=== PATIENT | female | born 1950 | race African-American/Black ===

== ENCOUNTER 2018-05-03 07:17 | Emergency (ER) | payer OTHER ==
[2018-05-03 08:11] LABS: Absolute Lymphocytes (CBC) 2.9 K/uL (0.7-4.9); Absolute Monocytes 0.8 K/uL (0.1-1.3); Absolute Neutrophil 2.6 K/uL (1.8-8.0); Basophils % 0.5 % (0-1.3); Eosinophils % 3.8 % (0-4.4); Hematocrit 35.7 % (36.0-45.0); Lymphocytes % 44.4 % (15.3-44.8); MCH 31.3 pg (27.0-35.0); MPV 9.3 fL (7.6-11.3); Monocytes % 12.2 % (3.3-12.3)
[2018-05-03 08:24] LABS: Potassium 3.7 mmol/L (3.5-5.1)
[2018-05-03 08:26] LABS: Protime INR 1.63
--- NOTE | 2018-05-03 08:49 | RAD REPORT ---
EXAM DESCRIPTION: US - UPPER EXTREMITY VENOUS UNILATE - 05/03/2018 8:43 am CLINICAL HISTORY: left arm pain and swelling, eval for dvt COMPARISON: No comparisons FINDINGS: Left upper extremity venous system was interrogated with Doppler technique. Normal flow, c ompressibility and augmentation was noted. There is no DVT present. IMPRESSION: No evidence of left upper extremity deep venous thrombosis.
--- NOTE | 2018-05-03 09:23 | RAD REPORT ---
EXAM DESCRIPTION: CT - Soft Tissue Neck Wo Contr CLINICAL HISTORY: left supraclavicular swelling COMPARISON: Chest Pa And Lat (2 Views) dated 11/16/2017; UPPER EXTREMITY VENOUS UNILATE dated 05/03/[address] soft tissue neck without contrast with reformatted images CT neck without contrast with reformatted images All CT scans are performed using dose optimization technique as appropriate and may include automated exposure control or mA/KV adjustment according to patient size. FINDINGS: Significant thyroid goiter is seen predominately involving the left lobe of the thyroid an d extending into the upper mediastinum. No intrinsic or extrinsic aggressive neck mass seen. No bulky lymphadenopathy is seen in the neck. The salivary glands are symmetric in size. The lungs are clear. No pleural or pericardial fluid. No bulky adenopathy is seen. Cholelithiasis. Calcification left adrenal gland is seen. IMPRESSION: Significant thyroid goiter predominate involving the left lobe of the thyroid gland exte nding into the upper mediastinum. No acute or aggressive neck or intrathoracic finding.
--- NOTE | 2018-05-03 10:11 | RAD REPORT ---
EXAM DESCRIPTION: CT - Thorax Wo Con CLINICAL HISTORY: Left supraclavicular swelling COMPARISON: Chest Pa And Lat (2 Views) dated 11/16/2017; UPPER EXTREMITY VENOUS UNILATE dated 05/03/20 18 TECHNIQUE: CT soft tissue neck without contrast with reformatted images CT neck without contrast with reformatted images All CT scans are performed using dose optimization technique as appropriate and may include automated exposure control or mA/KV adjustment according to patient size. FINDINGS: Significant thyroid goiter is seen predominately involving the left lobe of the thyroid an d extending into the upper mediastinum. No intrinsic or extrinsic aggressive neck mass seen. No bulky lymphadenopathy is seen in the neck. The salivary glands are symmetric in size. The lungs are clear. No pleural or pericardial fluid. No bulky adenopathy is seen. Cholelithiasis. Calcification left adrenal gland is seen. IMPRESSION: Significant thyroid goiter predominate involving the left lobe of the thyroid gland exte nding into the upper mediastinum. No acute or aggressive neck or intrathoracic finding.
[2018-05-03 11:19] LABS: Thyroid Stimulating Hormone 1.52 uIU/mL (0.360-3.740)
--- NOTE | 2018-05-03 12:34 | EKG ---
Test Date: 2018-05-03 Test Time: 09:06:24 Platen Grinder: NEEL MEASUREMENT RESULTS: Intervals: Rate: 61 [place]: 224 QRSD: 102 QT: 442 QTc: 444 [place]: P: 39 [place]: 224 QRS: 13 T: 48 INTERPRETIVE STATEMENTS: Sinus rhythm with 1st degree AV block Otherwise normal ECG Compared to ECG 11/21/2011 17:38:48 T-wave abnormality no longer present Electronically Signed On 05-03-18 12:32:50 CDT by Isacc Hayes
--- NOTE | 2018-05-03 13:16 | RAD REPORT ---
EXAM DESCRIPTION: MRI - C Spine Wo Cont - 05/03/2018 12:58 pm CLINICAL HISTORY: Left arm radiculopathy for 3 weeks COMPARISON: None TECHNIQUE: Magnetic resonance imaging of the cervical spine was obtained with coronal and sagittal r econstruction FINDINGS: C2-3 and C3-4 are unremarkable Disc bulge is present at C 4-5. Left facet hypertrophy is seen. Mild to moderate narrowing of the lef t neural foramina is noted. Minimal narrowing of the thecal sac is seen. Osteophytes and disc bulge is present at C5-6. Moderate narrowing of the right neural foramina is not ed. Small to moderate left posterolateral disc osteophyte complex is present at C6-7 narrowing the left l ateral recess and left neural foramina. C7-T1 is unremarkable The spinal cord is normal caliber and signal. No abnormal signal within the bones is noted. IMPRESSION: Small to moderate left posterolateral disc osteophyte complex C6-7
--- NOTE | 2018-05-03 13:37 | EDPHYS ---
Physician Documentation [facility] Name: Michelle Hadley Age: 68 yrs Sex: Female : 1950 Arrival Date: 05/03/2018 Time: 07:21 Bed 15 Private MD: Jose Maria Capps C ED Physician Jerardo Manzo HPI: 05/03 07:48 This 68 yrs old Black Female presents to ER via Ambulatory with complaints of Back rn Pain, Arm Pain, Neck Pain, <24hrs Old, Side Pain. 07:49 The patient or guardian complains of pain, swelling. The symptoms are located on the rn left scapular area. Onset: The symptoms/episode began/occurred 3 week(s) ago. Associated signs and symptoms: Pertinent positives: tingling, weakness, Pertinent negatives: chills, bladder incontinence, bowel incontinence, vomiting. The pain radiates to the left arm. Modifying factors: The symptoms are alleviated by nothing. the symptoms are aggravated by movement. Severity of symptoms: At their worst the symptoms were mild, in the emergency department the symptoms are unchanged. The patient has not experienced similar symptoms in the past. The patient has been recently seen by a physician:. REports 3 weeks of left neck and arm pain, + mild swelling to left neck region, no fever/chills, no weight loss, had neg colonoscopy 5 years ago, no recent surgery or procedure, no hx of DVT. . Historical: - Allergies: 07:29 PENICILLINS; ch - Home Meds: 07:29 magnesium oxide 400 mg Oral tab [Active]; fluticasone 50 mcg/actuation nasal spsn 1 ch spray 2 times per day [Active]; amlodipine 5 mg tab 1 tab once daily [Active]; sotalol 80 mg Oral tab 1 tab 2 times per day [Active]; carvedilol 25 mg oral tab 1 tab 2 times per day [Active]; gabapentin 100 mg oral cap 3 times per day [Active]; losartan-hydrochlorothiazide 50-12.5 mg oral tab 1 tab twice a day [Active]; Xarelto 15 mg oral tab [Active]; clonidine HCl 0.1 mg Oral tab 1 tab as needed [Active]; terazosin 2 mg cap, on capsul bid [Active]; - PMHx: 07:29 Hypertension; TIA; ch - PSHx: 07:29 partial hysterectomy; ch - Immunization history:: Adult Immunizations up to date, Flu vaccine is up to date. - Social history:: Smoking status: Patient/guardian denies using tobacco, Patient/guardian denies using alcohol, street drugs. - Ebola Screening: : Patient negative for fever greater than or equal to 101.5 degrees Fahrenheit, and additional compatible Ebola Virus Disease symptoms Patient denies exposure to infectious person Patient denies travel to an Ebola-affected area in the 21 days before illness onset No symptoms or risks identified at this time. - Family history:: not pertinent. - Hospitalizations: : No recent hospitalization is reported. ROS: 07:49 Constitutional: Negative for fever, chills, and weight loss, Eyes: Negative for injury, rn pain, redness, and discharge, Neck: + pain and swelling, no injury Cardiovascular: Negative for chest pain, palpitations, and edema, Respiratory: Negative for shortness of breath, cough, wheezing, and pleuritic chest pain, Abdomen/GI: Negative for abdominal pain, nausea, vomiting, diarrhea, and constipation, MS/Extremity: Negative for injury and deformity, Skin: Negative for injury, rash, and discoloration, Neuro: + weakness and tingling of left arm Exam: 07:49 Constitutional: This is a well developed, well nourished patient who is awake, alert, rn and in no acute distress. Head/Face: Normocephalic, atraumatic. Eyes: Pupils equal round and reactive to light, extra-ocular motions intact. Lids and lashes normal. Conjunctiva and sclera are non-icteric and not injected. Cornea within normal limits. Periorbital areas with no swelling, redness, or edema. ENT: Nares patent. No nasal discharge, no septal abnormalities noted. Mucous membranes moist. Neck: Trachea midline, + left supraclavicular swelling/mass noted approx 4cm in size, + tender, no skin changes, no crepitus. Chest/axilla: Normal chest wall appearance and motion. Cardiovascular: Regular rate and rhythm. No pulse deficits. Respiratory: Lungs have equal breath sounds bilaterally, clear to auscultation and percussion. No rales, rhonchi or wheezes noted. No increased work of breathing, no retractions or nasal flaring. Abdomen/GI: soft, non-tender MS/ Extremity: Pulses equal, no cyanosis. Neurovascular intact. Full, normal range of motion. Equal circumference. Neuro: Awake and alert, GCS 15, oriented to person, place, time, and situation. Cranial nerves II-XII grossly intact. Motor strength 5/5 in all extremities. Sensory grossly intact. Cerebellar exam normal. Normal gait. Vital Signs: 07:29 BP 171 / 84; Pulse 65; Resp 18; Temp 99; Pulse Ox 98% on R/A; Weight 130.63 kg; Height ch 5 ft. 4 in. (162.56 cm); Pain 10/10; 08:30 rb1 08:50 rb1 09:30 BP 149 / 66; Pulse 65; Resp 19; Pulse Ox 100% on R/A; rb1 11:01 BP 152 / 71; Pulse 64; Resp 18; Pulse Ox 98% on R/A; ph 12:15 BP 147 / 68; Pulse 65; Resp 18; Pulse Ox 98% on R/A; ph 07:29 Body Mass Index 49.43 (130.63 kg, 162.56 cm) ch 08:30 Pt. in US. rb1 08:[address] rb1 MDM: 07:31 Patient medically screened. rn 11:46 ED course: Neg w/u here except for thyroid goiter, normal thyroid studies, called Dr. hernandez Capps to notify of results, he requests MRI cspine for further evaluation while here in ER. . 13:34 Differential diagnosis: Cervical Disc Herniation Cervical Discogenic Pain Cervical rn Facet Syndrome Cervical Raiculopathy Diabetic Neuropathy Osteoarthritis neck mass. Data reviewed: vital signs, nurses notes, lab test result(s), EKG, radiologic studies, CT scan, doppler, MRI, and as a result, I will discharge patient. Counseling: I had a detailed discussion with the patient and/or guardian regarding: the historical points, exam findings, and any diagnostic results supporting the discharge/admit diagnosis, lab results, radiology results, the need for outpatient follow up, to return to the emergency department if symptoms worsen or persist or if there are any questions or concerns that arise at home. Special discussion: I discussed with the patient/guardian in detail that at this point there is no indication for admission to the hospital. It is understood, however, that if the symptoms persist or worsen the patient needs to return immediately for re-evaluation. Based on the history and exam findings, there is no indication for further emergent testing or inpatient evaluation. I discussed with the patient/guardian the need to see the back specialist for further evaluation of the symptoms. I discussed with the patient/guardian the need to see the primary care provider for further evaluation of the symptoms. Endocrine. ED course: MRI cspine shows some facet problems and minimal disc bulging, no cord abnormality, will dc home. Spoke with zahra Cordova with dc with steroids and requests f/u with him this next week. . 05/03 07:47 Order name: CBC with Diff; Complete Time: 08:33 rn 05/03 07:47 Order name: Basic Metabolic Panel; Complete Time: 11:38 rn 05/03 07:47 Order name: Protime (+inr); Complete Time: 08:33 rn 05/03 07:47 Order name: Ptt, Activated; Complete Time: 08:33 rn 05/03 07:48 Order name: Blood Culture Adult (2) rn 05/03 09:52 Order name: Add On-Lab hb 05/03 07:51 Order name: UPPER EXTREMITY VENOUS UNILATE; Complete Time: 09:49 EDMS 05/03 08:35 Order name: Soft Tissue Neck Wo Contr; Complete Time: 09:49 EDMS 05/03 08:35 Order name: Thorax Wo Con; Complete Time: 11:17 EDMS 05/03 10:00 Order name: T4 Free; Complete Time: 11:38 EDMS 05/03 10:00 Order name: Thyroid Stimulating Hormone; Complete Time: 11:38 EDMS 05/03 07:47 Order name: IV Start; Complete Time: 08:05 rn 05/03 07:48 Order name: EKG; Complete Time: 07:48 rn 05/03 07:48 Order name: EKG - Nurse/Tech; Complete Time: 09:19 rn 05/03 11:45 Order name: C Spine Wo Cont; Complete Time: 13:27 EDMS Administered Medications: 09:50 CANCELLED (Duplicate Order): Lopressor 5 mg IVP once; Hold for SBP <100 or HR <60. rn 09:50 CANCELLED (Duplicate Order): Lopressor (metoprolol TARTRATE) 50 mg PO once rn Disposition: 05/03/18 13:36 Discharged to Home. Impression: Radiculopathy, cervical region, Nontoxic goiter, unspecified. - Condition is Stable. - Discharge Instructions: Cervical Radiculopathy, Goiter. - Prescriptions for Prednisone 20 mg Oral Tablet - take 1 tablet by ORAL route once daily for 7 days; 7 tablet. - Medication Reconciliation Form, Thank You Letter, Antibiotic Education, Prescription Opioid Use form. - Follow up: Jose Maria Capps MD; When: 5 - 6 days; Reason: Recheck today's complaints, Re-evaluation by your physician. - Problem is an ongoing problem. - Symptoms have improved. Signatures: Dispatcher [employer] EDMI Deysi Jiménez RN RN Jerardo Manzo MD MD rn Rincon, HERNANDEZ Perez RN ph Corrections: (The following items were deleted from the chart) 07:51 07:48 Extremity Venous Uni Ltd+US.RAD.BRZ ordered. EDMS EDMS 08:35 07:48 Soft Tissue Neck W/Contr+CT.RAD.BRZ ordered. EDMS EDMS 08:35 07:48 Thorax W/ Con+CT.RAD.BRZ ordered. EDMI EDMS 09:50 09:50 Lopressor 5 mg IVP once; Hold for SBP <100 or HR <60. ordered. rn rn 09:50 09:50 Lopressor (metoprolol TARTRATE) 50 mg PO once ordered. rn rn 13:45 13:36 05/03/2018 13:36 Discharged to Home. Impression: Radiculopathy, cervical region; ph Nontoxic goiter, unspecified. Condition is Stable. Forms are Medication Reconciliation Form, Thank You Letter, Antibiotic Education, Prescription Opioid Use. Follow up: Jose Maria Capps; When: 5 - 6 days; Reason: Recheck today's complaints, Re-evaluation by your physician. Problem is an ongoing problem. Symptoms have improved. rn
--- NOTE | 2018-05-03 13:37 | ER ---
Nurse's Notes [facility] Name: Michelle Hadley Age: 68 yrs Sex: Female : 1950 Arrival Date: 05/03/2018 Time: 07:21 Bed 15 Private MD: Jose Maria Capps C Diagnosis: Radiculopathy, cervical region;Nontoxic goiter, unspecified Presentation: 05/03 07:25 Presenting complaint: Patient states: pain to L shoulder, radiating to neck and back ch for the past three week. I saw a DR yesterday and was given tylenol with codiene. Transition of care: patient was not received from another setting of care. Onset of symptoms was March 2018. Risk Assessment: Do you want to hurt yourself or someone else? Patient reports no desire to harm self or others. Initial Sepsis Screen: Does the patient meet any 2 criteria? No. Patient's initial sepsis screen is negative. Does the patient have a suspected source of infection? No. Patient's initial sepsis screen is negative. Care prior to arrival: tylenol #3. 07:25 Method Of Arrival: Ambulatory 07:25 Acuity: DOROTHY 4 ch Triage Assessment: 07:29 General: Appears in no apparent distress. comfortable, Behavior is calm, cooperative, ch appropriate for age. Pain: Complains of pain in left trapezius, left scapular area, left flank and left arm Pain currently is 10 out of 10 on a pain scale. Musculoskeletal: Circulation, motion, and sensation intact. Historical: - Allergies: 07:29 PENICILLINS; ch - Home Meds: 07:29 magnesium oxide 400 mg Oral tab [Active]; fluticasone 50 mcg/actuation nasal spsn 1 ch spray 2 times per day [Active]; amlodipine 5 mg tab 1 tab once daily [Active]; sotalol 80 mg Oral tab 1 tab 2 times per day [Active]; carvedilol 25 mg oral tab 1 tab 2 times per day [Active]; gabapentin 100 mg oral cap 3 times per day [Active]; losartan-hydrochlorothiazide 50-12.5 mg oral tab 1 tab twice a day [Active]; Xarelto 15 mg oral tab [Active]; clonidine HCl 0.1 mg Oral tab 1 tab as needed [Active]; terazosin 2 mg cap, on capsul bid [Active]; - PMHx: 07:29 Hypertension; TIA; ch - PSHx: 07:29 partial hysterectomy; ch - Immunization history:: Adult Immunizations up to date, Flu vaccine is up to date. - Social history:: Smoking status: Patient/guardian denies using tobacco, Patient/guardian denies using alcohol, street drugs. - Ebola Screening: : Patient negative for fever greater than or equal to 101.5 degrees Fahrenheit, and additional compatible Ebola Virus Disease symptoms Patient denies exposure to infectious person Patient denies travel to an Ebola-affected area in the 21 days before illness onset No symptoms or risks identified at this time. - Family history:: not pertinent. - Hospitalizations: : No recent hospitalization is reported. Screenin:32 Abuse screen: Denies threats or abuse. Nutritional screening: No deficits noted. rb1 Tuberculosis screening: No symptoms or risk factors identified. Fall Risk None identified. Assessment: 07:32 General: Appears in no apparent distress. comfortable, obese, Behavior is calm, rb1 cooperative, Denies fever. Pain: Complains of pain in left side of neck and shoulder Pain radiates to left arm Pain currently is 10 out of 10 on a pain scale. Pain began x 3 weeks. Neuro: Level of Consciousness is awake, alert, obeys commands, Oriented to person, place, time, situation, Reports weakness in left arm. Cardiovascular: Capillary refill < 3 seconds is brisk in bilateral fingers. Respiratory: Airway is patent Respiratory effort is even, unlabored, Respiratory pattern is regular, symmetrical. GI: No signs and/or symptoms were reported involving the gastrointestinal system. : No signs and/or symptoms were reported regarding the genitourinary system. Derm: Skin is dry, Skin is normal, Skin temperature is warm. Musculoskeletal: Swelling present in left side of neck and bilateral ankles. 07:50 Reassessment: IV insertion was delayed due to the Pt. being anxious about receiving the rb1 IV. Pt. and family was educated on the need for the lab work and testing that needed to be done and why. 08:46 Reassessment: Pt. went to CT. rb1 09:30 Reassessment: Patient appears in no apparent distress at this time. Patient and/or rb1 family updated on plan of care and expected duration. Pain level reassessed. Patient is alert, oriented x 3, equal unlabored respirations, skin warm/dry/pink. Pt. is feeling less anxious now. 09:51 Reassessment: Patient appears in no apparent distress at this time. Patient and/or ph family updated on plan of care and expected duration. Pain level reassessed. Patient is alert, oriented x 3, equal unlabored respirations, skin warm/dry/pink. Pt ambulated to restroom w/ steady gait. 11:00 Reassessment: Patient appears in no apparent distress at this time. Patient and/or ph family updated on plan of care and expected duration. Pain level reassessed. Patient is alert, oriented x 3, equal unlabored respirations, skin warm/dry/pink. Pt resting quietly, awaiting lab results, SO at bedside, VSS. 12:25 Reassessment: Patient appears in no apparent distress at this time. Patient and/or ph family updated on plan of care and expected duration. Pain level reassessed. Patient is alert, oriented x 3, equal unlabored respirations, skin warm/dry/pink. IV d/c per pt request, pt taken by wheelchair for MRI, SO remains at bedside. 13:43 Reassessment: Patient appears in no apparent distress at this time. Patient and/or ph family updated on plan of care and expected duration. Pain level reassessed. Patient is alert, oriented x 3, equal unlabored respirations, skin warm/dry/pink. Pt instructed to follow up w/ Dr Capps and d/c home w/ steroid prescription. Vital Signs: 07:29 BP 171 / 84; Pulse 65; Resp 18; Temp 99; Pulse Ox 98% on R/A; Weight 130.63 kg; Height ch 5 ft. 4 in. (162.56 cm); Pain 10/10; 08:30 rb1 08:50 rb1 09:30 BP 149 / 66; Pulse 65; Resp 19; Pulse Ox 100% on R/A; rb1 11:01 BP 152 / 71; Pulse 64; Resp 18; Pulse Ox 98% on R/A; ph 12:15 BP 147 / 68; Pulse 65; Resp 18; Pulse Ox 98% on R/A; ph 07:29 Body Mass Index 49.43 (130.63 kg, 162.56 cm) ch 08:30 Pt. in US. rb1 08:[address] rb1 ED Course: 07:21 Patient arrived in ED. sb2 07:22 Jose Maria Capps MD is Private Physician. sb2 07:27 Triage completed. ch 07:29 Arm band placed on left wrist. Patient placed in an exam room, on a stretcher. ch 07:31 Jerardo Manzo MD is Attending Physician. rn 07:32 Patient has correct armband on for positive identification. Placed in gown. Bed in low rb1 position. Call light in reach. Side rails up X 1. Pulse ox on. NIBP on. Warm blanket given. 07:32 Inserted saline lock: 22 gauge in right antecubital area, using aseptic technique. rb1 Blood collected. 07:34 Makeda Campos, RN is Primary Nurse. rb1 07:57 Radiology exam delayed due to IV insertion attempt and/or patient not having hr appropriate IV at this time. 08:40 UPPER EXTREMITY VENOUS UNILATE In Process Unspecified. EDMS 08:[address] via stretcher. sj 08:57 CT completed. Patient tolerated procedure well. Patient moved back from CT. sj 08:59 Soft Tissue Neck Wo Contr In Process Unspecified. EDMS 08:59 Thorax Wo Con In Process Unspecified. EDMS 09:00 Report given to HERNANDEZ Perez. rb1 09:33 EKG done, by aviation technician aircraft. reviewed by Jerardo Manzo MD. dt2 10:55 No provider procedures requiring assistance completed. ph 12:17 Ana Rincon RN is Primary Nurse. ph 12:30 Patient moved to MRI via wheelchair. em2 12:30 IV discontinued, intact, bleeding controlled, No redness/swelling at site. Pressure ph dressing applied. 12:58 C Spine Wo Cont In Process Unspecified. EDMS 13:00 MRI completed. Patient tolerated well. Patient moved back from MRI. em2 13:36 Jose Maria Capps MD is Referral Physician. rn Administered Medications: 09:50 CANCELLED (Duplicate Order): Lopressor 5 mg IVP once; Hold for SBP <100 or HR <60. rn 09:50 CANCELLED (Duplicate Order): Lopressor (metoprolol TARTRATE) 50 mg PO once rn Outcome: 13:36 Discharge ordered by . rn 13:44 Discharged to home ambulatory, with significant other. ph 13:44 Condition: good 13:44 Discharge instructions given to patient, significant other, Instructed on discharge instructions, follow up and referral plans. medication usage, Demonstrated understanding of instructions, follow-up care, medications, Prescriptions given X 1. 13:45 Patient left the ED. ph Signatures: Dispatcher [employer] EDMS Deysi Jiménez, RN RN rafael Navarro, Rody Edwards, Jerardo Vallecillo MD MD rn Montes, Pawel em2 Ana Rincon RN RN ph Andres, Makeda RN RN [place] Missy, Magui sb2 Evie Scott dt2 Corrections: (The following items were deleted from the chart) 07:47 07:29 BP 171 / ???; Pulse 84bpm; Resp 65bpm; Pulse Ox 99% RA; Temp 18F; 130.63 kg; ch Height 5 ft. 4 in.; BMI: 49.4; Pain 10/10; ch
[2018-05-03 15:32] VITALS: BP 147/68; TEMP 99; O2SAT 98
== END 2018-05-03 13:45 | disposition home or self-care (01) ==
LOC: ER 07:17
DX: M54.12 Radiculopathy, cervical region (principal); E04.9 Nontoxic goiter, unspecified; I10 Essential (primary) hypertension; Z79.02 Long term (current) use of antithrombotics/antiplatelets; Z88.0 Allergy status to penicillin; Z86.73 Personal history of transient ischemic attack (TIA), and cerebral infarction without residual deficits
CPT/HCPCS: 36415; 70490; 71250; 72141; 80048; 84439; 84443; 85025; 85610; 85730; 87040; 93005; 93971; 99284

== ENCOUNTER → 2019-05-04 | Day surgery (SDC) | payer OTHER ==
[2011-11-24 15:46] VITALS: BP 141/72
--- NOTE | 2019-05-04 10:58 | RAD REPORT ---
EXAM DESCRIPTION: US - Guided FNA Non Breast - 05/04/2019 10:42 am CLINICAL HISTORY: E04.1 COMPARISON: Thyroid ultrasound April 17 TECHNIQUE: Patient presents for ultrasound-guided fine-needle aspiration of a solid right nodule jarrett t had shown growth since a 2018 study. Referring physician's office was contacted prior to the proced ure to confirm FNA of the right-side nodule. The procedure, risks and alternatives were discussed with the patient in detail. After answering all questions, both oral and written consent were obtained. Patient self medicated with Valium. After beulah ting adequate time for the medications to take effect, preliminary sonographic evaluation was perform ed and again identified the oval 2.5 centimeter solid nodule in the right side of the thyroid gland. The anterior right neck was prepped and draped in the usual sterile fashion. From a right anterolater al approach the skin and deeper tissues were anesthetized with 1% lidocaine. Under direct sonographic visualization a 25 gauge needle was advanced into the nodule. Multiple to and fro excursions of the needle tip performed. The FNA procedure was repeated with 3 additional 25 gauge needle aspirations. A ll obtained material was given to pathology for cytology assessment. At the conclusion of the procedure, follow-up imaging showed no hematoma or evidence for bleeding enedina und the thyroid gland or along the pathway of the needle. Postprocedure care and precaution instructi ons were given to the patient and her . A sterile bandage was placed over the puncture site at the conclusion of the procedure. IMPRESSION: Ultrasound-guided fine-needle aspiration was performed of the right thyroid solid nodule as detailed.
== END ==
LOC: FNA 08:42
PROVIDERS: ATTEND Otolaryngology
PROC: 0G9H3ZX Drainage of Right Thyroid Gland Lobe, Percutaneous Approach, Diagnostic (ICD-10-PCS; principal; 2019-05-04)
PROC: BG44ZZZ Ultrasonography of Thyroid Gland (ICD-10-PCS; 2019-05-04)
DX: E04.1 Nontoxic single thyroid nodule (principal)
CPT/HCPCS: 88162

== ENCOUNTER 2020-04-14 14:45 | Inpatient (IN) | payer OTHER ==
--- OUTSIDE RECORDS SUMMARY | 2020-04-14 14:47 | XMS REPORT | Continuity of Care Document ---
:1950 Author Organization [facility] t Address [address] [place] [address] Care Team Providers Name Role Phone Unavailable Unavailable Unavailable Payers Payer Name Policy Type Policy Number Effective Date Expiration Date S ource Problems This patient has no known problems. Allergies, Adverse Reactions, Alerts Allergy Allergy Status Severity Reaction(s) Onset Inactive Treating Comm ents Source Name Type Date Date Clinician [place] [facility] [facility] No Known DA Active [facility] 02-09 [place] [facility] 00:[facility] [place] [facility] [place] [facility] Medications This patient has no known medications. Procedures This patient has no known procedures. Results This patient has no known results.
[2020-04-14] MEDS ORDERED: NITROGLYCERIN 1 GM PKT TD ONE (15:34)
[2020-04-14] MEDS ORDERED: MORPHINE 4 MG/ML SYR ONE (15:34)
[2020-04-14] MEDS ORDERED: LORazepam 2 MG/ML VIAL ONE (15:34)
[2020-04-14] MEDS ORDERED: NITROGLYCERIN 0.4 MG/TAB SL ONE (15:35)
[2020-04-14] MEDS ORDERED: FUROSEMIDE 40 MG/4 ML VIAL ONE ×2 (15:35→17:48)
[2020-04-14 15:48] LABS: Absolute Lymphocytes (CBC) 2.4 K/uL (0.7-4.9); Hematocrit 36.4 % (36.0-45.0); Lymphocytes % 36.8 % (15.3-44.8); MPV 9.1 fL (7.6-11.3); Protime INR 1.91; RBC Red Blood Cell Count 3.84 M/uL (3.86-4.86)
[2020-04-14 16:16] LABS: ALT/SGPT 28 U/L (12-78); AST/SGOT 20 U/L (15-37); Albumin 3.5 g/dL (3.4-5.0); Alkaline Phosphatase 92 U/L (45-117); BUN Blood Urea Nitrogen 19 mg/dL (7-18); Bicarbonate 29 mmol/L (21-32); Bilirubin Direct 0.3 mg/dL (0-0.2); Bilirubin Total 0.9 mg/dL (0.2-1.0); Glucose Level 96 mg/dL (74-106); Magnesium 1.9 mg/dL (1.8-2.4); NT PRO-BNP 2157 pg/mL (<125); Potassium 3.9 mmol/L (3.5-5.1); Protein, Total 8.1 g/dL (6.4-8.2); Sodium Level 142 mmol/L (136-145); Troponin (Emerg Dept Use Only) < 0.02 ng/mL (0.0-0.045)
[2020-04-14] MEDS ORDERED: ASPIRIN 81 MG CHEWABLE TABLET ONE (16:23)
--- NOTE | 2020-04-14 16:29 | RAD REPORT ---
EXAM DESCRIPTION: RAD - Chest Single View - 04/14/2020 3:47 pm CLINICAL HISTORY: CHEST PAIN COMPARISON: Two view chest November 2017 TECHNIQUE: AP portable chest image was obtained 04/14/2020 3:47 pm . FINDINGS: Lung volumes are low. Large body habitus and under penetrated technique further limit the study. No peripheral mass or consolidation. Heart, vasculature and lung markings are is accentuated by the e xam limitations. Mild failure or volume overload could be masked. No significant volume overload. Tra jarrett is midline. No measurable pleural effusion and no pneumothorax. No acute bony abnormality seen. No acute aortic findings suspected. IMPRESSION: Limited portable study without acute cardiopulmonary finding. Mild failure or volume overload could be masked by the exam limitations.
[2020-04-14 16:41] LABS: Urine Blood TRACE (NEG); Urine Glucose NEGATIVE (NEG); Urine Specific Gravity 1.025 (1.005-1.030)
[2020-04-14 16:42] LABS: Urine Protein TRACE (NEG)
--- NOTE | 2020-04-14 17:39 | ER ---
Nurse's Notes [facility] Name: Michelle Hadley Age: 70 yrs Sex: Female : 1950 Arrival Date: 04/14/2020 Time: 14:48 Bed 2 Private MD: Jose Maria Capps C Diagnosis: Unspecified systolic (congestive) heart failure Presentation: 04/14 15:05 Chief complaint: Patient states: has had difficulty breathing, chest tightness, iw swelling in her feet for 2 months, also has a slight headache, denies hx of CHF. Coronavirus screen: At this time, the client does not indicate any symptoms associated with coronavirus-19. Ebola Screen: Patient negative for fever greater than or equal to 101.5 degrees Fahrenheit, and additional compatible Ebola Virus Disease symptoms Patient denies exposure to infectious person. Patient denies travel to an Ebola-affected area in the 21 days before illness onset. No symptoms or risks identified at this time. Initial Sepsis Screen: Does the patient meet any 2 criteria? No. Patient's initial sepsis screen is negative. Does the patient have a suspected source of infection? No. Patient's initial sepsis screen is negative. Onset of symptoms was January 2020. 15:05 Method Of Arrival: Wheelchair iw 15:05 Acuity: DOROTHY 3 iw 15:07 Risk Assessment: Do you want to hurt yourself or someone else? Patient reports no sv desire to harm self or others. 15:13 Acuity: DOROTHY 2 sv Triage Assessment: 15:07 General: Appears in no apparent distress. uncomfortable, obese, well groomed, well sv developed, Behavior is calm, cooperative, appropriate for age. Pain: Complains of pain in chest Pain does not radiate. Quality of pain is described as tightness Pain began 2-3 months ago Is intermittent. Neuro: Level of Consciousness is awake, alert, obeys commands, Oriented to person, place, time, situation, Moves all extremities. Full function Gait is steady, Speech is normal, easily loses her breath. Respiratory: Reports shortness of breath at rest on exertion cough that is non-productive, Airway is patent Respiratory effort is even, unlabored, Respiratory pattern is regular, symmetrical, Onset: The symptoms/episode began/occurred 2-3 months ago, the patient has mild shortness of breath. Derm: Skin is pink, warm \T\ dry. Musculoskeletal: Range of motion: intact in all extremities. Historical: - Allergies: 15:11 PENICILLINS; iw - Home Meds: 15:14 losartan 100 mg oral tab 1 tab once daily [Active]; sotalol 80 mg Oral tab 1 tab 2 iw times per day [Active]; Xarelto 15 mg Oral tab daily [Active]; Dulcolax (bisacodyl) 5 mg Oral TbEC 1 tab once daily [Active]; hydralazine 10 mg Oral tab 1 tab 2 times per day [Active]; magnesium oxide 400 mg Oral tab daily [Active]; carvedilol 25 mg Oral tab 1 tab 2 times per day [Active]; losartan-hydrochlorothiazide 50-12.5 mg Oral tab 1 tab twice a day [Active]; clonidine HCl 0.2 mg oral tab 2 times per day [Active]; - PMHx: 15:11 Hypertension; TIA; Atrial Fib; CVA; iw - PSHx: 15:11 Hysterectomy; mass removed from stomach; iw - Immunization history:: Adult Immunizations up to date. - Social history:: Smoking status: Patient denies any tobacco usage or history of. Screenin:07 Abuse screen: Denies threats or abuse. Denies injuries from another. Nutritional sv screening: No deficits noted. Tuberculosis screening: No symptoms or risk factors identified. Fall Risk None identified. Assessment: 15:40 Reassessment: Pt placed on BIPAP by Alyce MCKEON sv 16:10 Reassessment: Patient appears in no apparent distress at this time. Patient and/or sv family updated on plan of care and expected duration. Pain level reassessed. Patient is alert, oriented x 3, equal unlabored respirations, skin warm/dry/pink. Patient states feeling better. Patient states symptoms have improved. 17:00 Reassessment: Patient appears in no apparent distress at this time. Patient and/or sv family updated on plan of care and expected duration. Pain level reassessed. Patient is alert, oriented x 3, equal unlabored respirations, skin warm/dry/pink. Pt reports that she can breathe better Patient states feeling better. Patient states symptoms have improved. 17:49 Reassessment: Patient appears in no apparent distress at this time. Patient and/or sv family updated on plan of care and expected duration. Pain level reassessed. Patient is alert, oriented x 3, equal unlabored respirations, skin warm/dry/pink. 17:55 Reassessment: Waiting for admission orders. sv 18:17 Reassessment: Attempted to call report, nurse unavailable. sv Vital Signs: 15:05 Pulse 94; Resp 20 S; Temp 97.9; Pulse Ox 100% on R/A; Weight 136.08 kg; Height 5 ft. 5 iw in. (165.10 cm); Pain 0/10; 15:13 BP 195 / 124; sv 15:49 BP 199 / 104; Pulse 86 MON; Resp 17; Pulse Ox 97% on BiPAP; sv 15:55 BP 199 / 104; Pulse 96; Resp 22; Pulse Ox 100% on BiPAP; ph 16:30 BP 190 / 102; Pulse 84; Resp 19; Pulse Ox 99% ; sv 17:30 BP 193 / 105; Pulse 74; Resp 16; Pulse Ox 99% on BiPAP; sv 18:45 BP 191 / 104; Pulse 77; Resp 18; Pulse Ox 99% on BiPAP; sv 15:05 Body Mass Index 49.92 (136.08 kg, 165.10 cm) iw 15:49 A fib sv 15:49 Concepción DISABILITY INSURANCE CLAIM EXAMINER aware of vitals, no further orders at this time sv ED Course: 14:48 Patient arrived in ED. mr 14:48 Jose Maria Capps MD is Private Physician. mr 14:58 Laurel Shah, RN is Primary Nurse. sv 14:59 Concepción Hernandez FNP-C is [facility]. snw 14:59 Rehan Bey MD is Attending Physician. snw 15:05 Arm band placed on. sv 15:06 Nurse Practitioner and/or Physician Manager Business Continuity to see patient. sv 15:06 Patient has correct armband on for positive identification. Placed in gown. Bed in low sv position. Call light in reach. Adult w/ patient. quality assurance monitor final on. Pulse ox on. NIBP on. Door closed. Head of bed elevated. 15:09 Triage completed. iw 15:15 Inserted saline lock: 20 gauge in right antecubital area, using aseptic technique. sv Blood collected. Flushed right antecubital with 5 ml normal saline. 15:42 X-ray(s) taken. sv 15:43 XRAY Chest (1 view) Sent. sv 15:43 Troponin (emerg Dept Use Only) Sent. sv 15:43 PT-INR Sent. sv 15:43 NT PRO-BNP Sent. sv 15:43 Magnesium Sent. sv 15:43 LFT's Sent. sv 15:43 CBC with Diff Sent. sv 15:43 Basic Metabolic Panel Sent. sv 15:43 TSH Sent. sv 15:43 BIPAP Sent. sv 16:20 Urine Dipstick--Ancillary (enter results) Sent. sv 17:01 Awaiting disposition, Awaiting re-evaluation by ER provider. sv 17:29 Awaiting disposition. sv 17:37 Jose Maria Capps MD is Hospitalizing Provider. snw 19:13 No provider procedures requiring assistance completed. Patient admitted, IV remains in sv place. intact. 19:16 Primary Nurse role handed off by Laurel Shah RN sv Administered Medications: 15:17 CANCELLED (Other Intervention Used): Aspirin Chewable Tablet 324 mg PO once; 81 mg snw tablets x 4 15:18 CANCELLED (Other Intervention Used; other int): Lovenox 1 mg/kg Sub-Q once snw 15:35 Drug: Ativan 1 mg Route: IVP; Site: right antecubital; ph 15:50 Follow up: Response: No adverse reaction sv 15:38 Drug: Lasix 40 mg Route: IVP; Site: right antecubital; ph 15:50 Follow up: Response: No adverse reaction sv 15:41 Drug: Nitroglycerin 0.4 mg Route: Sublingual; ph 15:50 Follow up: Response: No adverse reaction sv 16:05 Drug: Nitro-Bid Ointment 2 % 1 inches Route: Transdermal; Site: anterior chest wall; ph 16:20 Drug: Aspirin 81 mg Route: PO; sv 16:59 Follow up: Response: No adverse reaction sv 17:00 Not Given (Patient Refused): morphine 4 mg IVP once; RASS on ADMIN: Combtv4, Very sv Agttd3, Agttd2, Rstlss1, AlertClm0, Drwsy-1, Lt Sdtn-2, Mod Sdtn-3, Dp Sdtn-4, UnArsble-5 17:48 Drug: Lasix 40 mg Route: IVP; Site: right antecubital; sv 18:30 Follow up: Response: No adverse reaction sv Output: 16:08 Urine: 150ml (Voided); Total: 150ml. sv 17:00 Urine: 450ml (Voided); Total: 600ml. sv 18:34 Urine: 950ml (Voided); Total: 1550ml. sv Outcome: 17:39 Decision to Hospitalize by Provider. snw 19:13 Admitted to Tele accompanied by tech, via wheelchair, room 401, with chart, Report sv called to Sallie NG 19:13 Condition: stable 19:13 Instructed on the need for admit. 19:26 Patient left the ED. lp1 Signatures: Laurel Shah, RN RN sv Concepción Hernandez, GOLF RANGE ATTENDANT-C GOLF RANGE ATTENDANT-Csnw Ella Rivas mr Tara Gan RN RN iw Yolanda Armas RN RN lp1 Ana Rincon RN RN ph Corrections: (The following items were deleted from the chart) 17:37 16:49 BP 190 / 102; Pulse 84bpm; Resp 19bpm; Pulse Ox 99%; sv sv 19:12 15:49 BP 199 / 104; Pulse 86bpm; Monitor: A fibResp 17bpm; Pulse Ox 97% BiPAP; sv sv
--- NOTE | 2020-04-14 17:39 | EDPHYS ---
Physician Documentation [facility] Name: Michelle Hadley Age: 70 yrs Sex: Female : 1950 Arrival Date: 04/14/2020 Time: 14:48 Bed 2 Private MD: Jose Maria Capps C ED Physician Rehan Bey HPI: 04/14 16:22 This 70 yrs old Black Female presents to ER via Wheelchair with complaints of Breathing snw Difficulty. 16:22 The patient has shortness of breath with light activity. Onset: The symptoms/episode snw began/occurred 2 month(s) ago, and became persistent. Duration: The symptoms are continuous. The patient's shortness of breath is aggravated by exertion, light activity, supine position, walking. Associated signs and symptoms: The patient has no apparent associated signs or symptoms. Severity of symptoms: At their worst the symptoms were severe in the emergency department the symptoms are unchanged. The patient has not recently seen a physician, the patient's primary care provider is Dr. Capps - encouraged to come to ED one month ago but pt declined. pt became visibly short of breath just getting leg up onto stretcher. Historical: - Allergies: 15:11 PENICILLINS; iw - Home Meds: 15:14 losartan 100 mg oral tab 1 tab once daily [Active]; sotalol 80 mg Oral tab 1 tab 2 iw times per day [Active]; Xarelto 15 mg Oral tab daily [Active]; Dulcolax (bisacodyl) 5 mg Oral TbEC 1 tab once daily [Active]; hydralazine 10 mg Oral tab 1 tab 2 times per day [Active]; magnesium oxide 400 mg Oral tab daily [Active]; carvedilol 25 mg Oral tab 1 tab 2 times per day [Active]; losartan-hydrochlorothiazide 50-12.5 mg Oral tab 1 tab twice a day [Active]; clonidine HCl 0.2 mg oral tab 2 times per day [Active]; - PMHx: 15:11 Hypertension; TIA; Atrial Fib; CVA; iw - PSHx: 15:11 Hysterectomy; mass removed from stomach; iw - Immunization history:: Adult Immunizations up to date. - Social history:: Smoking status: Patient denies any tobacco usage or history of. ROS: 16:22 Constitutional: Negative for fever, chills, and weight loss, Eyes: Negative for injury, snw pain, redness, and discharge, ENT: Negative for injury, pain, and discharge, Neck: Negative for injury, pain, and swelling, Cardiovascular: Negative for chest pain, palpitations, and edema. 16:22 Abdomen/GI: Negative for abdominal pain, nausea, vomiting, diarrhea, and constipation, Back: Negative for injury and pain, : Negative for injury, bleeding, discharge, and swelling, MS/Extremity: Negative for injury and deformity, Skin: Negative for injury, rash, and discoloration, Neuro: Negative for headache, weakness, numbness, tingling, and seizure. 16:22 Respiratory: Positive for dyspnea on exertion, orthopnea, shortness of breath. Exam: 15:15 Head/Face: Normocephalic, atraumatic. Eyes: Pupils equal round and reactive to light, snw extra-ocular motions intact. Lids and lashes normal. Conjunctiva and sclera are non-icteric and not injected. Cornea within normal limits. Periorbital areas with no swelling, redness, or edema. ENT: Nares patent. No nasal discharge, no septal abnormalities noted. Tympanic membranes are normal and external auditory canals are clear. Oropharynx with no redness, swelling, or masses, exudates, or evidence of obstruction, uvula midline. Mucous membranes moist. Neck: Trachea midline, no thyromegaly or masses palpated, and no cervical lymphadenopathy. Supple, full range of motion without nuchal rigidity, or vertebral point tenderness. No Meningismus. Chest/axilla: Normal chest wall appearance and motion. Nontender with no deformity. No lesions are appreciated. 15:15 Constitutional: The patient appears alert, awake, anxious, obese. 15:15 Cardiovascular: Rate: normal, Rhythm: irregularly irregular, Heart sounds: S3, Edema: is not appreciated, JVD: is noted bilaterally, to 2 cm. 15:15 Abdomen/GI: Soft, non-tender, with normal bowel sounds. No distension or tympany. No snw guarding or rebound. No evidence of tenderness throughout. Back: No spinal tenderness. No costovertebral tenderness. Full range of motion. Skin: Warm, dry with normal turgor. Normal color with no rashes, no lesions, and no evidence of cellulitis. MS/ Extremity: Pulses equal, no cyanosis. Neurovascular intact. Full, normal range of motion. Neuro: Awake and alert, GCS 15, oriented to person, place, time, and situation. Cranial nerves II-XII grossly intact. Motor strength 5/5 in all extremities. Sensory grossly intact. Cerebellar exam normal. Normal gait. 15:15 Respiratory: moderate respiratory distress is noted, Respirations: labored breathing, accessory muscle usage, shallow respirations, tachypnea, Breath sounds: are clear throughout, no bronchial sounds. 15:15 Psych: Behavior/mood is pleasant, cooperative, anxious. Vital Signs: 15:05 Pulse 94; Resp 20 S; Temp 97.9; Pulse Ox 100% on R/A; Weight 136.08 kg; Height 5 ft. 5 iw in. (165.10 cm); Pain 0/10; 15:13 BP 195 / 124; sv 15:49 BP 199 / 104; Pulse 86 MON; Resp 17; Pulse Ox 97% on BiPAP; sv 15:55 BP 199 / 104; Pulse 96; Resp 22; Pulse Ox 100% on BiPAP; ph 16:30 BP 190 / 102; Pulse 84; Resp 19; Pulse Ox 99% ; sv 17:30 BP 193 / 105; Pulse 74; Resp 16; Pulse Ox 99% on BiPAP; sv 18:45 BP 191 / 104; Pulse 77; Resp 18; Pulse Ox 99% on BiPAP; sv 15:05 Body Mass Index 49.92 (136.08 kg, 165.10 cm) iw 15:49 A fib sv 15:49 Concepción OPERATING ROOM TECHNICIAN aware of vitals, no further orders at this time sv MDM: 14:59 Patient medically screened. snw 16:51 Data reviewed: vital signs, nurses notes, old medical records, lab test result(s), EKG, snw radiologic studies. Data interpreted: Pulse oximetry: on room air is 100 %. Interpretation: normal. Counseling: I had a detailed discussion with the patient and/or guardian regarding: the historical points, exam findings, and any diagnostic results supporting the discharge/admit diagnosis, the presence of at least one elevated blood pressure reading (>120/80) during this emergency department visit, lab results, radiology results, the need for further work-up and treatment in the hospital. Physician consultation: A Jefry RODRIGUEZ was called at 16:40, regarding admission, to the telemetry unit. 04/14 15:13 Order name: Basic Metabolic Panel sv 04/14 15:13 Order name: CBC with Diff sv 04/14 15:13 Order name: LFT's sv 04/14 15:13 Order name: Magnesium sv 04/14 15:13 Order name: NT PRO-BNP sv 04/14 15:13 Order name: PT-INR sv 04/14 15:13 Order name: Troponin (emerg Dept Use Only) sv 04/14 15:13 Order name: TSH sv 04/14 15:49 Order name: CBC with Automated Diff; Complete Time: 16:18 EDMS 04/14 15:49 Order name: Protime (+INR); Complete Time: 16:18 EDMS 04/14 16:13 Order name: Urine Dipstick--Ancillary (enter results) 04/14 16:16 Order name: Basic Metabolic Panel; Complete Time: 16:18 EDMS 04/14 16:16 Order name: Liver (Hepatic) Function; Complete Time: 16:18 EDMS 04/14 16:16 Order name: Troponin (Emerg Dept Use Only); Complete Time: 16:18 EDMS 04/14 15:13 Order name: XRAY Chest (1 view) 04/14 15:14 Order name: BIPAP snw 04/14 16:16 Order name: NT PRO-BNP; Complete Time: 16:18 EDMS 04/14 16:16 Order name: Magnesium; Complete Time: 16:18 EDMS 04/14 16:16 Order name: Thyroid Stimulating Hormone; Complete Time: 16:18 EDMS 04/14 16:30 Order name: RAD; Complete Time: 16:43 EDMS 04/14 16:42 Order name: Urine Dipstick-Ancillary; Complete Time: 16:43 EDMS 04/14 15:13 Order name: EKG; Complete Time: 15:13 sv 04/14 15:13 Order name: Cardiac monitoring; Complete Time: 15:43 sv 04/14 15:13 Order name: EKG - Nurse/Tech; Complete Time: 15:43 sv 04/14 15:13 Order name: IV Saline Lock; Complete Time: 15:43 sv 04/14 15:13 Order name: Labs collected and sent; Complete Time: 15:43 sv 04/14 15:13 Order name: O2 Per Protocol; Complete Time: 15:43 sv 04/14 15:13 Order name: O2 Sat Monitoring; Complete Time: 15:43 sv EC:15 Rate is 88 beats/min. Rhythm is irregularly irregular. QRS Bureau is Normal. GA interval snw is normal. Clinical impression: Atrial Fibrillation. Administered Medications: 15:17 CANCELLED (Other Intervention Used): Aspirin Chewable Tablet 324 mg PO once; 81 mg snw tablets x 4 15:18 CANCELLED (Other Intervention Used; other int): Lovenox 1 mg/kg Sub-Q once snw 15:35 Drug: Ativan 1 mg Route: IVP; Site: right antecubital; ph 15:50 Follow up: Response: No adverse reaction sv 15:38 Drug: Lasix 40 mg Route: IVP; Site: right antecubital; ph 15:50 Follow up: Response: No adverse reaction sv 15:41 Drug: Nitroglycerin 0.4 mg Route: Sublingual; ph 15:50 Follow up: Response: No adverse reaction sv 16:05 Drug: Nitro-Bid Ointment 2 % 1 inches Route: Transdermal; Site: anterior chest wall; ph 16:20 Drug: Aspirin 81 mg Route: PO; sv 16:59 Follow up: Response: No adverse reaction sv 17:00 Not Given (Patient Refused): morphine 4 mg IVP once; RASS on ADMIN: Combtv4, Very sv Agttd3, Agttd2, Rstlss1, AlertClm0, Drwsy-1, Lt Sdtn-2, Mod Sdtn-3, Dp Sdtn-4, UnArsble-5 17:48 Drug: Lasix 40 mg Route: IVP; Site: right antecubital; sv 18:30 Follow up: Response: No adverse reaction sv Disposition: 04/15 09:46 Co-signature as Attending Physician, Rehan Bey MD I agree with the assessment and kdr plan of care. Disposition: 04/14/20 17:39 Hospitalization ordered by Jose Maria Capps for Inpatient Admission. Preliminary diagnosis is Unspecified systolic (congestive) heart failure. - Bed requested for Telemetry/MedSurg (Inpatient). - Status is Inpatient Admission. lp1 - Condition is Stable. - Problem is new. - Symptoms have improved. Signatures: Dispatcher [employer] Laurel Faria RN RN sv Woody, Diana, RN RN dw Rehan Bey MD MD kdr Concepción Hernandez, PIPE ORGAN BUILDER-C PIPE ORGAN BUILDER-Csnw Tara Gan, RN RN iw Yolanda Armas, HERNANDEZ RN lp1 Ana Rincon, RN RN ph Corrections: (The following items were deleted from the chart) 04/14 15:17 15:17 Aspirin Chewable Tablet 324 mg PO once; 81 mg tablets x 4 ordered. snw snw 15:18 15:17 Lovenox 1 mg/kg Sub-Q once ordered. snw snw 18:14 17:39 Hospitalization Ordered by A Jefry RODRIGUEZ for Inpatient Admission. Preliminary dw diagnosis is Unspecified systolic (congestive) heart failure. Bed requested for Telemetry/MedSurg (Inpatient). Status is Inpatient Admission. Condition is Stable. Problem is new. Symptoms have improved. snw 19:26 18:14 04/14/2020 17:39 Hospitalization Ordered by A Jefry RODRIGUEZ for Inpatient Admission. lp1 Preliminary diagnosis is Unspecified systolic (congestive) heart failure. Bed requested for Telemetry/MedSurg (Inpatient). Status is Inpatient Admission. Condition is Stable. Problem is new. Symptoms have improved. dw
[2020-04-14] MEDS ORDERED: ACETAMINOPHEN 500 MG TAB PO PRN (20:05)
[2020-04-14] MEDS: NITROGLYCERIN 1 GM PKT TD SCH (21:03)
[2020-04-14] MEDS: HYDRALAZINE HCL 10 MG TABLET PO SCH (21:04)
[2020-04-14] MEDS: cloNIDine HCL 0.1 MG TAB PO SCH (21:04)
[2020-04-14] MEDS: GABAPENTIN 100 MG CAP PO SCH (21:04)
[2020-04-14] MEDS: SOTALOL HCL 80 MG TAB PO SCH (22:02)
[2020-04-14] MEDS: carvediloL 25 MG TAB PO SCH (22:02)
--- NOTE | 2020-04-14 23:06 | HP ---
Date of Admission: 04/14/2020 RACHEL/MODL Voice ID: [id number]
[2020-04-15] MEDS: NITROGLYCERIN 1 GM PKT TD SCH ×4 (00:54→17:53)
[2020-04-15 05:42] LABS: Absolute Lymphocytes (CBC) 2.2 K/uL (0.7-4.9); Basophils % 0.6 % (0-1.3); Hematocrit 32.5 % (36.0-45.0); Lymphocytes % 34.1 % (15.3-44.8); MPV 8.9 fL (7.6-11.3); RBC Red Blood Cell Count 3.45 M/uL (3.86-4.86)
[2020-04-15 05:57] LABS: Potassium 3.8 mmol/L (3.5-5.1)
[2020-04-15 06:15] VITALS: BMI 49.9
--- NOTE | 2020-04-15 08:43 | HP ---
Date of Admission: 04/15/2020 Chief Complaint: Shortness of breath. History Of Present Illness: This is a 70-year-old pleasant female patient with history of hypertension, atrial fibrillation, called her , called office about a month ago with the patient complaining of shortness of breath and leg swelling problem. At that time, she was advised to come to emergency room and the patient refused to do so. Her symptoms progressively got worse, especially more so in the last few days, so she came into emergency room yesterday, and after she was evaluated in the ER, she was noted to have congestive heart failure, and her blood pressure was extremely elevated in the emergency room. She was given Lasix, nitroglycerin paste, and morphine, and I was contacted, and the patient was admitted to the hospital. After I talked to emergency room provider, another dose of 40 mg Lasix IV as a second dose was ordered. Her blood pressure was elevated last night and her home medications were started and this morning her blood pressure is under better control. Allergies: TO PENICILLIN CAUSING RASH. Medications: Carvedilol 25 mg 2 times a day, clonidine 0.2 mg 2 times a day, Voltaren gel topically to hand 3 times a day as needed for pain, fluticasone nasal spray 2 sprays in each nostril daily, gabapentin 100 mg take 2 capsules by mouth times a day, hydralazine 10 mg 2 times a day, hydrochlorothiazide 25 mg daily, losartan 100 mg daily, magnesium oxide 400 mg daily, Xarelto 15 mg daily, sotalol 80 mg b.i.d. Review of Systems: Respiratory: Significant for shortness of breath. Cardiovascular: Significant for leg edema. All other systems reviewed and negative. Past Medical History: Allergic rhinitis, impaired fasting glucose, hypertension, hyperlipidemia, atrial fibrillation, chronic kidney disease stage 3, leg edema, cervical radiculopathy, osteoarthritis at multiple sites, anemia due to chronic kidney disease, hypomagnesemia. Past Surgical History: Hysterectomy. Family History: Significant for father , had stable aneurysm and hypertension. Mother had hypertension, diabetes, and coronary artery disease. Social History: Negative for smoking. Use of alcohol in the past. Physical Examination: Vital Signs: Height 5 feet 5 inches, weight 300 pounds, temperature 97.1, pulse 86, respiratory rate 16, blood pressure 141/69 this morning. When she came into emergency room yesterday afternoon, her blood pressure was 195/124. General: Awake, alert, oriented, not in distress. HEENT: Head atraumatic, normocephalic. Conjunctivae nonerythematous. Sclerae white. Mouth, no thrush or edema noted. Ears/Nose, no mass, lesion, discharge noted. Neck: Supple. No JVD, lymph nodes, bruit, thyromegaly noted. Lungs: Presence of rales noted in lower lung wallis, not in any respiratory distress. Heart: Normal heart sounds, no murmur or gallop. Abdomen: Soft, bowel sounds normal. No guarding, rigidity, tenderness, mass, hepatosplenomegaly, distention, or bruit noted. Extremities: Bilateral grade 1 pedal edema. Skin: No rash, ulcer, cellulitis. Lymphatics: No lymph node enlargement in neck, supraclavicular, infraclavicular region. Neuro: No focal neurological deficit. Chest: Unremarkable. External Genitalia: Deferred. Rectal: Deferred. Laboratory Data: White count 6.4, hemoglobin 11.9, platelets 188. INR is 1.91. Sodium 142, potassium 3.9, chloride 108, bicarb 29, BUN 19, creatinine 1.49, glucose 96. Liver function tests unremarkable. Troponin less than 0.02. ProBNP 2157. Chest x-ray shows changes of congestive heart failure. Impression: 1. Congestive heart failure, atrial fibrillation. 2. Hypertension. 3. Impaired fasting glucose. 4. Hyperlipidemia. 5. Osteoarthritis, multiple sites. 6. Anemia due to chronic kidney disease. 7. Hypomagnesemia. Plan: Admit the patient to the hospital for further evaluation and management of this problem. The patient is appropriate for inpatient and is expected to spend 2 midnights in the hospital. The patient received Lasix IV 40 mg x2 in the emergency room along with nitroglycerin paste and we will continue IV Lasix and nitroglycerin paste per order. Home medications will be continued. We will monitor intake, output, daily weight, electrolyte, renal function. We will consult Cardiology and also get an echo with Doppler tomorrow. Continue oxygen and BiPAP support as needed. Details of plan of treatment discussed with the patient. Continue Xarelto for anticoagulation therapy for atrial fibrillation. We will also look into and talk to poly packer and heat sealer to see if sotalol really needs to be continued or it can be discontinued considering the patient is in atrial fibrillation and rate is well controlled or maybe that decision may need to be done later on, so we will see what poly packer and heat sealer recommends. RACHEL/PATRICIO Voice ID: [id number] MTDD
[2020-04-15] MEDS: FUROSEMIDE 40 MG/4 ML VIAL IV SCH ×2 (08:53→17:32)
[2020-04-15] MEDS: cloNIDine HCL 0.1 MG TAB PO SCH ×2 (08:53→20:18)
[2020-04-15] MEDS: GABAPENTIN 100 MG CAP PO SCH ×3 (08:54→20:19)
[2020-04-15] MEDS: carvediloL 25 MG TAB PO SCH ×2 (08:54→20:19)
[2020-04-15] MEDS: LOSARTAN POTASSIUM 50 MG TABLET PO SCH (08:54)
[2020-04-15] MEDS: SOTALOL HCL 80 MG TAB PO SCH ×2 (08:54→20:19)
[2020-04-15] MEDS: HYDRALAZINE HCL 10 MG TABLET PO SCH ×2 (08:54→20:19)
[2020-04-15] MEDS ORDERED: PNEUMOCOCCAL VACCINE 0.5 ML IMVAC ONE (09:00)
[2020-04-15] MEDS ORDERED: ASPIRIN EC 81 MG TAB PO SCH (09:00)
--- NOTE | 2020-04-15 11:15 | ECHO ---
HEIGHT: 5 ft 5 in WEIGHT: 300 lb 0 oz DATE OF STUDY: 04/15/[address]: Concepción Stallings HYDROELECTRIC SYSTEMS TECHNICIAN-BC 2-DIMENSIONAL: YES M.MODE: YES DOPPLER: YES COLOR FLOW: YES TDS: NO PORTABLE: NO DEFINITY: NO BUBBLE STUDY: NO DIAGNOSIS: CONGESTIVE HEART FAILURE, SHORTNESS OF BREATH CARDIAC HISTORY: CATHERIZATION: NO SURGERY: NO PROSTHETIC VALVE: NO PACEMAKER: NO MEASUREMENTS (cm) DIASTOLIC (NORMALS) SYSTOLIC (NORMALS) IVSd 1.3 (0.6-1.2) LA Diam 4.1 (1.9-4.0) LVEF 77% LVIDd 3.6 (3.5-5.7) LVIDs 2.0 (2.0-3.5) %FS 45% LVPWd 1.4 (0.6-1.2) Ao Diam 2.4 (2.0-3.7) 2 DIMENSIONAL ASSESSMENT: RIGHT ATRIUM: NORMAL LEFT ATRIUM: ENLARGED RIGHT VENTRICLE: NORMAL LEFT VENTRICLE: LEFT VENTRICULAR HYPERTROPHY, MILD TRICUSPID VALVE: MITRAL VALVE: NORMAL PULMONIC VALVE: NORMAL AORTIC VALVE: NORMAL PERICARDIAL EFFUSION: NONE AORTIC ROOT: NORMAL LEFT VENTRICULAR WALL MOTION: NORMAL DOPPLER/COLOR FLOW: DIASTOLIC DYSFUNCTION. COMMENTS: NORMAL LEFT VENTRICULAR EJECTION FRACTION 55-60% WITH NORMAL WALL MOTION. SEVERE DIASTOLIC DYSFUNCTION WITH ELEVATED FILLING PRESSURE. MILD MITRAL AND TRICUSPID REGURGITATION. TECHNOLOGIST: Giana SEBASTIAN
--- NOTE | 2020-04-15 14:34 | CON ---
Date of Consultation: 04/15/2020 Reason For Consultation: Heart failure and chest pain. History Of Present Illness: This is a 70-year-old female, who was admitted to the hospital because o f worsening shortness of breath and lower extremity edema with an episode of chest tightness with it. She has been having no significant orthopnea, sleeping on 5 pillows, almost sitting up, but on eval uation by me during the admission, she was diagnosed with congestive heart failure and treated with I V Lasix and at the time of my review, she is feeling much better. Does not have any further orthopne a and she wants to go home. She has no further chest pain. Past Medical History: Hypertension, atrial fibrillation. Medications: Refer to reconciliation sheet for detailed list. Allergies: PENICILLIN. Family History: No premature coronary artery disease or cancer. Social History: Does not smoke or drink. Does not use any drugs. Review of Systems: All systems reviewed and they were negative except what mentioned in the HPI. Physical Examination: Vital Signs: Temperature is 97.0, pulse 86, breathing 16, blood pressure is 136/67, saturating 99% o n room air. General: Pleasant elderly female, in no apparent distress. Head and Neck: Pupils are equal and reactive to light. Intact eye movements. No JVD. No cervical lymphadenopathy. Neck is supple. Thyroid is not enlarged. Lungs: Clear to auscultation bilaterally. No rhonchi, rales, or crackles. No accessory muscle use. Heart: Regular rate and rhythm. No extra sounds. Abdomen: Soft, nontender. Bowel sounds positive. No organomegaly. No masses or hernia. No rigidi ty or rebound. Extremities: No edema, clubbing, or cyanosis. Intact pulses. Skin: No rash. Neurologic: Alert, awake, oriented x3. No acute focal deficits appreciated. Investigations: Chest x-ray, possible congestive heart failure. Echocardiogram showed normal EF wit h severe diastolic dysfunction and elevated filling pressures. Assessment And Plan: 1.Acute on chronic diastolic heart failure exacerbation. Agree with diuresis. The patient is feeli ng significantly better. Continue Lasix 40 mg twice a day and monitor BUN, creatinine, and electroly myah. 2.Chest pain. It is atypical pain and cardiac enzymes are negative. From my standpoint if the svitlana ent is stable, can be released and follow up as an outpatient and stress test in the next week or 2 t o further evaluate her chest pain. Thank you for the courtesy of this consultation. /PATRICIO Voice ID: [id number] Report ID: [id number]
[2020-04-15] MEDS ORDERED: RIVAROXABAN 15 MG TABLET PO SCH (17:00)
[2020-04-16] MEDS: NITROGLYCERIN 1 GM PKT TD SCH ×2 (00:06→05:47)
[2020-04-16 06:03] LABS: Magnesium 1.8 mg/dL (1.8-2.4); Potassium 3.3 mmol/L (3.5-5.1)
[2020-04-16 06:05] VITALS: O2SAT 98
[2020-04-16] MEDS ORDERED: POTASSIUM CL SA 10 MEQ TAB PO ONE (07:30)
[2020-04-16] MEDS: HYDRALAZINE HCL 10 MG TABLET PO SCH (07:59)
[2020-04-16] MEDS: GABAPENTIN 100 MG CAP PO SCH (07:59)
[2020-04-16] MEDS: cloNIDine HCL 0.1 MG TAB PO SCH (07:59)
[2020-04-16] MEDS: carvediloL 25 MG TAB PO SCH (07:59)
[2020-04-16] MEDS: SOTALOL HCL 80 MG TAB PO SCH (08:00)
[2020-04-16] MEDS: FUROSEMIDE 40 MG/4 ML VIAL IV SCH (08:00)
[2020-04-16 08:01] VITALS: BP 143/82
[2020-04-16] MEDS: LOSARTAN POTASSIUM 50 MG TABLET PO SCH (08:09)
[2020-04-16] MEDS ORDERED: PNEUMOCOCCAL VACCINE 0.5 ML IMVAC ONE (09:00)
[2020-04-16 09:39] VITALS: TEMP 97.1
== END 2020-04-16 09:00 | disposition home or self-care (01) | DRG 291 ==
LOC: ER 14:45 → ERHOLD 17:42 → 4TH 19:13
PROVIDERS: ADMIT Internal Medicine; ATTEND Internal Medicine
DX: I13.0 Hypertensive heart and chronic kidney disease with heart failure and stage 1 through stage 4 chronic kidney disease, or unspecified chronic kidney disease (principal); I50.33 Acute on chronic diastolic (congestive) heart failure; N18.3 Chronic kidney disease, stage 3 (moderate); E78.5 Hyperlipidemia, unspecified; I48.91 Unspecified atrial fibrillation; M19.90 Unspecified osteoarthritis, unspecified site; D63.8 Anemia in other chronic diseases classified elsewhere; E83.42 Hypomagnesemia; R07.89 Other chest pain; R73.01 Impaired fasting glucose; Z79.01 Long term (current) use of anticoagulants; Z86.73 Personal history of transient ischemic attack (TIA), and cerebral infarction without residual deficits; Z79.899 Other long term (current) drug therapy; Z88.0 Allergy status to penicillin; Z90.710 Acquired absence of both cervix and uterus; Z20.828 Contact with and (suspected) exposure to other viral communicable diseases
CPT/HCPCS: 36415; 71045; 80048; 80076; 81003; 83735; 83880; 84443; 84484; 85025; 85610; 90471; 90670; 93005; 93306; 94660; 96374; 96375; 99285; J1940; U0002

== ENCOUNTER 2021-05-24 08:56 | Inpatient (IN) | payer OTHER ==
[2021-05-24] MEDS ORDERED: HYDROMORPHONE HCL 2 MG/ML inj ONE (10:09)
[2021-05-24] MEDS ORDERED: DIAZEPAM 10 MG/2 ML INJ SYRINGE ONE (10:10)
[2021-05-24 10:29] LABS: Absolute Lymphocytes (CBC) 2.6 K/uL (0.7-4.9); Basophils % 0.7 % (0-1.3); Hematocrit 33.7 % (36.0-45.0); MPV 8.6 fL (7.6-11.3); RBC Red Blood Cell Count 3.49 M/uL (3.86-4.86)
--- NOTE | 2021-05-24 11:13 | RAD REPORT ---
EXAM DESCRIPTION: CT - Spine Lumbar Wo Con - 05/24/2021 10:53 am CLINICAL HISTORY: pain COMPARISON: C Spine Wo Con dated 05/24/2021; Thoracic Spine W/o Cont dated 05/24/2021 TECHNIQUE: Axial noncontrast CT imaging of the lumbar spine was performed with coronal and sagittal re-formatted images. All CT scans are performed using dose optimization technique as appropriate and may include automated exposure control or mA/KV adjustment according to patient size. FINDINGS: No acute lumbar spine fracture seen. No aggressive marrow pattern or malalignment. Choleli thiasis. Atherosclerosis. Scattered colonic diverticula. Partial colectomy. Multilevel degenerate disc disease is noted. There is a combination of ligamentum flavum facet hypert rophy which results in likely moderate central spinal stenosis at L3-4. There is some limitation due to patient's body habitus. Suspect a central disc protrusion at L5-S1. Small fat containing umbilical hernia. Intervertebral disc disease assessment is inherently limited by CT. Within these limitations, no high -grade canal stenosis suspected. IMPRESSION: No acute fracture of the lumbar spine is identified. Multilevel degenerative disc diseas e which is not well assessed due to body habitus. Consider MRI follow-up for assessment of disc disease if clinically desired.
--- NOTE | 2021-05-24 11:16 | RAD REPORT ---
EXAM DESCRIPTION: CT - Thoracic Spine W/o Cont - 05/24/2021 10:53 am CLINICAL HISTORY: Radiculopathy. PAIN COMPARISON: C Spine Wo Con dated 05/24/2021; Soft Tissue Neck Wo Contr dated 05/03/2018; Guided FNA N on Breast dated 05/04/2019; Thyroid Para Parotid Gland dated 04/17/2019 TECHNIQUE: Axial CT imaging through the thoracic spine was performed with coronal and sagittal re-fo rmatted images. All CT scans are performed using dose optimization technique as appropriate and may include automated exposure control or mA/KV adjustment according to patient size. FINDINGS: Vertebral body heights and disc spaces are maintained. A compression fracture is not prese nt. No significant disc space narrowing. Multinodular goiter. Cardiomegaly. Thoracic spine alignment is within normal limits. No paraspinal masses or hematoma. Intervertebral disc detail is inherently limited on CT without gross findings of canal compromise. IMPRESSION: No acute fracture or or traumatic malalignment of the thoracic spine.
--- NOTE | 2021-05-24 11:27 | RAD REPORT ---
EXAM DESCRIPTION: CT - C Spine Wo Con - 05/24/2021 10:53 am CLINICAL HISTORY: PAIN COMPARISON: Soft Tissue Neck Wo Contr dated 05/03/2018; Spine Lumbar Wo Con dated 05/24/2021; Thoraci c Spine W/o Cont dated 05/24/[address] Scan was obtained of the cervical spine without contrast. Reformats were provided in th e sagittal and coronal plane. FINDINGS: No acute fracture of the cervical spine. No traumatic malalignment. No prevertebral edema. No significant focal degenerative changes. Multinodular thyroid. Cervical spondylosis with varying degrees of neural foraminal narrowing. IMPRESSION: No fracture or traumatic malalignment of the cervical spine. Multilevel cervical spondyl osis.
[2021-05-24 12:02] LABS: Urine Blood Negative (Negative); Urine Glucose Negative (Negative); Urine Protein Negative (Negative)
[2021-05-24 12:07] LABS: Albumin 3.2 g/dL (3.4-5.0); Bilirubin Total 0.5 mg/dL (0.2-1.0); Potassium 3.8 mmol/L (3.5-5.1); Protein, Total 7.1 g/dL (6.4-8.2)
--- NOTE | 2021-05-24 12:08 | ER ---
Nurse's Notes [facility] Name: Michelle Hadley Age: 71 yrs Sex: Female : 1950 Arrival Date: 05/24/2021 Time: 08:59 Bed 18 Private MD: Jose Maria Capps C Diagnosis: Low back pain Presentation: 05/24 09:07 Chief complaint: Chief complaint: Patient states: Severe pain to lower back, neck and sl2 left arm 8 onset 2 days ago - On morning patient was attempting to sit down and experienced sudden onset of severe pain to lower back. 09:07 Coronavirus screen: Vaccine status: Patient reports receiving the 2nd dose of the covid sl2 vaccine. Ebola Screen: Patient negative for fever greater than or equal to 101.5 degrees Fahrenheit, and additional compatible Ebola Virus Disease symptoms Patient denies exposure to infectious person. Patient denies travel to an Ebola-affected area in the 21 days before illness onset. No symptoms or risks identified at this time. 09:07 Method Of Arrival: Wheelchair sl2 09:07 Initial Sepsis Screen: Does the patient meet any 2 criteria? No. Patient's initial sl2 sepsis screen is negative. Does the patient have a suspected source of infection? No. Patient's initial sepsis screen is negative. Risk Assessment: Do you want to hurt yourself or someone else? Patient reports no desire to harm self or others. Onset of symptoms was May 22, 2021. 09:07 Acuity: DOROTHY 3 sl2 Triage Assessment: 09:22 General: Appears uncomfortable, obese, well groomed, well developed, Behavior is calm, sl2 cooperative, quiet. Pain: Complains of pain in neck, left arm \T\ lower back Pain does not radiate. Pain currently is 8 out of 10 on a pain scale. at worst was 10 out of 10 on a pain scale. level that patient reports is acceptable is 2 out of 10 on a pain scale. Quality of pain is described as aching, sharp, Pain began suddenly, 2-3 days ago. Is continuous, Alleviated by rest, Aggravated by exercise, increased activity, repositioning, weight bearing, Noted to be grimacing, quiet/stoic, resistant to movement. EENT: No deficits noted. No signs and/or symptoms were reported regarding the EENT system. Neuro: No deficits noted. Cardiovascular: No deficits noted. Reports. Respiratory: No deficits noted. Reports. GI: No deficits noted. No signs and/or symptoms were reported involving the gastrointestinal system. : No deficits noted. No signs and/or symptoms were reported regarding the genitourinary system. Derm: No deficits noted. No signs and/or symptoms reported regarding the dermatologic system. Musculoskeletal: Reports pain in neck, left arm, lower back Denies. Historical: - Allergies: 09:22 PENICILLINS; sl2 - Home Meds: 15:46 gabapentin 100 mg Oral cap 3 times per day [Active]; amlodipine 5 mg tab 1 tab once jl7 daily [Active]; carvedilol 25 mg Oral tab 1 tab 2 times per day [Active]; clonidine HCl 0.2 mg Oral tab 2 times per day [Active]; Dulcolax (bisacodyl) 5 mg Oral TbEC 1 tab once daily [Active]; fluticasone 50 mcg/actuation nasal spsn 1 spray 2 times per day [Active]; hydralazine 10 mg Oral tab 1 tab 2 times per day [Active]; losartan 100 mg Oral tab 1 tab once daily [Active]; losartan-hydrochlorothiazide 50-12.5 mg Oral tab 1 tab twice a day [Active]; magnesium oxide 400 mg Oral tab daily [Active]; sotalol 80 mg Oral tab 1 tab 2 times per day [Active]; terazosin 2 mg cap, on capsul bid [Active]; Xarelto 15 mg Oral tab daily [Active]; - PMHx: 15:46 Atrial Fib; TIA; Hypertension; CVA; jl7 - Immunization history:: Adult Immunizations up to date, Client reports receiving the 2nd dose of the Covid vaccine. - Social history:: Smoking status: Patient denies any tobacco usage or history of. Patient/guardian denies using alcohol, street drugs, The patient lives with family. - Family history:: not pertinent. - Hospitalizations: : No recent hospitalization is reported. Screenin:33 Abuse screen: Denies threats or abuse. Nutritional screening: No deficits noted. sl2 Tuberculosis screening: No symptoms or risk factors identified. Never had TB. Possible symptoms: None Risk factors: None. Fall Risk No fall in past 12 months (0 pts). No secondary diagnosis (0 pts). No IV (0 pts). Ambulatory Aid- Crutches/Cane/Walker (15 pts). Gait- Impaired (20 pts.). Mental Status- Oriented to own ability (0 pts). Total Lofton Fall Scale indicates Low Risk Score (25-44 pts). Side Rails Up X 2 Placed close to Nursing Station Frequent Obs/Assesments occuring Family Present and informed to notify staff if they need to leave bedside. Assessment: 09:33 General: Appears uncomfortable, obese, well groomed, well developed, Behavior is calm, sl2 cooperative, appropriate for age, quiet, Reports Pian 8 of 10 to neck, left arm and lower back. 09:33 Pain: Complains of pain in Neck, left arm and lower back Pain does not radiate. Pain sl2 currently is 8 out of 10 on a pain scale. at worst was 10 out of 10 on a pain scale. level that patient reports is acceptable is 2 out of 10 on a pain scale. Quality of pain is described as aching, sharp, Pain began 2-3 days ago. Is continuous, Alleviated by rest, Aggravated by exercise, increased activity, repositioning, weight bearing, Noted to be grimacing, quiet/stoic, resistant to movement. Neuro: No deficits noted. Level of Consciousness is awake, alert, obeys commands, Oriented to person, place, time, situation, Appropriate for age. Cardiovascular: No deficits noted. Respiratory: No deficits noted. Airway is patent Trachea midline Respiratory effort is even, unlabored, Respiratory pattern is regular, symmetrical. GI: No deficits noted. No signs and/or symptoms were reported involving the gastrointestinal system. GI: Abdomen is distended, obese, Abd is soft and non tender. : No deficits noted. No signs and/or symptoms were reported regarding the genitourinary system. EENT: No deficits noted. No signs and/or symptoms were reported regarding the EENT system. Derm: No deficits noted. No signs and/or symptoms reported regarding the dermatologic system. Musculoskeletal: Reports pain in NECK, left arm and lower back since 2 days ago . Pain is 8 out of 10 on a pain scale. Denies. 15:05 Pain: Pain currently is 2 out of 10 on a pain scale. sl2 Vital Signs: 09:07 BP 124 / 81; Pulse 83; Resp 16; Temp 98.2(O); Pulse Ox 97% on R/A; sl2 09:30 BP 124 / 80; Pulse 85; Resp 18; Temp 98.2; Pulse Ox 97% on R/A; sl2 10:00 BP 122 / 78; Pulse 84; Resp 18; Pulse Ox 98% ; sl2 10:00 BP 113 / 69; Pulse 87; Resp 18; Temp 97.6; Pulse Ox 99% on R/A; sl2 12:15 BP 124 / 65; Pulse 83; Resp 18; Temp 97.8(O); Pulse Ox 100% on R/A; mh5 13:41 BP 114 / 56; Pulse 79; Resp 16; Temp 97.6(TE); Pulse Ox 100% on R/A; mh5 14:00 BP 113 / 67; Pulse 72; Resp 16; Pulse Ox 99% ; sl2 15:00 BP 104 / 67; Pulse 72; Resp 18; Temp 97.8(O); Pulse Ox 99% on R/A; sl2 ED Course: 08:59 Patient arrived in ED. mr 09:00 Jose Maria Capps MD is Private Physician. mr 09:05 Dottie Maddox MD is Attending Physician. ma2 09:17 Sandra Avila, HERNANDEZ is Primary Nurse. sl2 09:22 Triage completed. sl2 09:22 Arm band placed on left wrist. sl2 10:25 Inserted saline lock: 20 gauge in right antecubital area, using aseptic technique. ld1 Blood collected. 10:[address] via stretcher. sl2 10:41 Patient has correct armband on for positive identification. Bed in low position. Call 5 light in reach. Side rails up X 1. Adult w/ patient. Warm blanket given. Pillow given. press officer on. Pulse ox on. NIBP on. 10:52 CT Lumbar Spine Wo Con In Process Unspecified. EDMS 10:53 CT Thoracic Spine Wo Cont In Process Unspecified. EDMS 10:53 CT C Spine In Process Unspecified. EDMS 11:13 Patient moved back from CT. sl2 12:07 Jose Maria Capps MD is Hospitalizing Provider. ma2 12:14 Initial lab(s) drawn, by ED staff, sent to lab. Urine collected: clean catch specimen, 5 clear. 15:44 No provider procedures requiring assistance completed. Patient admitted, IV remains in jl7 place. intact, No redness/swelling at site. Administered Medications: 10:12 Drug: Dilaudid (HYDROmorphone) 1 mg Route: IVP; Site: right antecubital; sl2 10:30 Follow up: Response: No adverse reaction sl2 10:41 Follow up: Response: No adverse reaction; Pain is decreased sl2 10:41 Follow up: Response: No adverse reaction; Temperature is decreased sl2 10:17 Drug: Valium (diazepam) 5 mg Route: IVP; Site: right antecubital; sl2 10:30 Follow up: Response: No adverse reaction; Pain is decreased sl2 14:26 Drug: Dilaudid (HYDROmorphone) 1 mg Route: IVP; Site: right antecubital; sl2 15:05 Follow up: Response: No adverse reaction; Pain is decreased sl2 Outcome: 12:08 Decision to Hospitalize by Provider. ma2 15:44 Admitted to Med/surg accompanied by tech, family with patient, via stretcher, room 225, [facility] with chart, Report called to HERNANDEZ Somers 15:44 Condition: stable 15:44 Discharge instructions given to patient, family, Instructed on the need for admit, Demonstrated understanding of instructions. 16:04 Patient left the ED. 7 Signatures: Dispatcher [employer] WANDATX RobElla JahAsha 5 Marc Forbes RN RN jl7 Dottie Maddox MD MD ma2 Mary Lou Cowan RN RN abe1 Sandra Avila RN RN sl2
--- NOTE | 2021-05-24 12:08 | EDPHYS ---
Physician Documentation [facility] Name: Michelle Hadley Age: 71 yrs Sex: Female : 1950 Arrival Date: 05/24/2021 Time: 08:59 Bed 18 Private MD: Jose Maria Capps C ED Physician Dottie Maddox HPI: 05/24 10:27 This 71 yrs old Black Female presents to ER via Wheelchair with complaints of Back ma2 Pain, . 10:27 The symptoms are located in the low back, thoracic area and lumbar area. Associated ma2 signs and symptoms: Pertinent negatives: abdominal pain, chest pain, constipation, dysuria, fever, headache, hematuria, incontinence, nausea, numbness, tingling, urinary retention, vomiting, weakness. Severity of symptoms: At their worst the symptoms were moderate, in the emergency department the symptoms are unchanged. The patient has experienced similar episodes in the past. Historical: - Allergies: 09:22 PENICILLINS; sl2 - Home Meds: 15:46 gabapentin 100 mg Oral cap 3 times per day [Active]; amlodipine 5 mg tab 1 tab once jl7 daily [Active]; carvedilol 25 mg Oral tab 1 tab 2 times per day [Active]; clonidine HCl 0.2 mg Oral tab 2 times per day [Active]; Dulcolax (bisacodyl) 5 mg Oral TbEC 1 tab once daily [Active]; fluticasone 50 mcg/actuation nasal spsn 1 spray 2 times per day [Active]; hydralazine 10 mg Oral tab 1 tab 2 times per day [Active]; losartan 100 mg Oral tab 1 tab once daily [Active]; losartan-hydrochlorothiazide 50-12.5 mg Oral tab 1 tab twice a day [Active]; magnesium oxide 400 mg Oral tab daily [Active]; sotalol 80 mg Oral tab 1 tab 2 times per day [Active]; terazosin 2 mg cap, on capsul bid [Active]; Xarelto 15 mg Oral tab daily [Active]; - PMHx: 15:46 Atrial Fib; TIA; Hypertension; CVA; jl7 - Immunization history:: Adult Immunizations up to date, Client reports receiving the 2nd dose of the Covid vaccine. - Social history:: Smoking status: Patient denies any tobacco usage or history of. Patient/guardian denies using alcohol, street drugs, The patient lives with family. - Family history:: not pertinent. - Hospitalizations: : No recent hospitalization is reported. ROS: 10:27 Constitutional: Negative for fever, chills, and weight loss. ma2 10:27 All other systems are negative. Exam: 10:27 Constitutional: This is a well developed, well nourished patient who is awake, alert, ma2 and in no acute distress. Chest/axilla: Normal chest wall appearance and motion. Nontender with no deformity. No lesions are appreciated. Cardiovascular: Regular rate and rhythm with a normal S1 and S2. No gallops, murmurs, or rubs. Normal PMI, no JVD. No pulse deficits. Respiratory: Lungs have equal breath sounds bilaterally, clear to auscultation and percussion. No rales, rhonchi or wheezes noted. No increased work of breathing, no retractions or nasal flaring. Abdomen/GI: Soft, non-tender, with normal bowel sounds. No distension or tympany. No guarding or rebound. No evidence of tenderness throughout. Back: No spinal tenderness. neck muscle ttp + costovertebral tenderness. Full range of motion. Skin: Warm, dry with normal turgor. Normal color with no rashes, no lesions, and no evidence of cellulitis. MS/ Extremity: Pulses equal, no cyanosis. Neurovascular intact. Full, normal range of motion. Neuro: Awake and alert, GCS 15, oriented to person, place, time, and situation. Cranial nerves II-XII grossly intact. Motor strength 5/5 in all extremities. Sensory grossly intact. Cerebellar exam normal. Normal gait. 10:27 Head/Face: Normocephalic, atraumatic. Neck: Trachea midline, no thyromegaly or masses ma2 palpated, and no cervical lymphadenopathy. Supple, full range of motion without nuchal rigidity, or vertebral point tenderness. No Meningismus. Vital Signs: 09:07 BP 124 / 81; Pulse 83; Resp 16; Temp 98.2(O); Pulse Ox 97% on R/A; sl2 09:30 BP 124 / 80; Pulse 85; Resp 18; Temp 98.2; Pulse Ox 97% on R/A; sl2 10:00 BP 122 / 78; Pulse 84; Resp 18; Pulse Ox 98% ; sl2 10:00 BP 113 / 69; Pulse 87; Resp 18; Temp 97.6; Pulse Ox 99% on R/A; 2 12:15 BP 124 / 65; Pulse 83; Resp 18; Temp 97.8(O); Pulse Ox 100% on R/A; 5 13:41 BP 114 / 56; Pulse 79; Resp 16; Temp 97.6(TE); Pulse Ox 100% on R/A; 5 14:00 BP 113 / 67; Pulse 72; Resp 16; Pulse Ox 99% ; sl2 15:00 BP 104 / 67; Pulse 72; Resp 18; Temp 97.8(O); Pulse Ox 99% on R/A; sl2 MDM: 09:05 Patient medically screened. [facility] 10:27 Differential diagnosis: arthritis, Fatigue Fracture Ligament Injury sprain, vertebral ma2 fracture. 12:07 Data reviewed: vital signs, nurses notes. Counseling: I had a detailed discussion with [facility] the patient and/or guardian regarding: the historical points, exam findings, and any diagnostic results supporting the discharge/admit diagnosis, the presence of at least one elevated blood pressure reading (>120/80) during this emergency department visit, the need for outpatient follow up. Response to treatment: the patient's symptoms have markedly improved after treatment. ED course: will admit for intractable pain. 05/24 09:54 Order name: CBC with Diff [facility] 05/24 09:54 Order name: CMP; Complete Time: 12:08 ma2 05/24 12:02 Order name: Urine Dipstick-Ancillary; Complete Time: 12:08 EDTN 05/24 12:14 Order name: CBC Smear Scan EDTN 05/24 12:16 Order name: COVID-19 SARS RT PCR (Document "Date of Onset" if Symptomatic) eb 05/24 12:17 Order name: SARS-COV-2 RT PCR EDTN 05/24 09:54 Order name: CT Lumbar Spine Wo Con; Complete Time: 11:59 ma2 05/24 09:54 Order name: CT Thoracic Spine Wo Cont; Complete Time: 11:59 ma2 05/24 09:54 Order name: CT C Spine; Complete Time: 11:59 ma2 05/24 09:54 Order name: Urine Dipstick-Ancillary (obtain specimen); Complete Time: 12:14 ma2 11/06 10:52 Order name: Labs - recollect needed: recollect green top hemolyzed; Complete Time: 11:34eb Administered Medications: 10:12 Drug: Dilaudid (HYDROmorphone) 1 mg Route: IVP; Site: right antecubital; sl2 10:30 Follow up: Response: No adverse reaction sl2 10:41 Follow up: Response: No adverse reaction; Pain is decreased sl2 10:41 Follow up: Response: No adverse reaction; Temperature is decreased sl2 10:17 Drug: Valium (diazepam) 5 mg Route: IVP; Site: right antecubital; sl2 10:30 Follow up: Response: No adverse reaction; Pain is decreased sl2 14:26 Drug: Dilaudid (HYDROmorphone) 1 mg Route: IVP; Site: right antecubital; sl2 15:05 Follow up: Response: No adverse reaction; Pain is decreased sl2 Disposition Summary: 05/24/21 12:08 Hospitalization Ordered Hospitalization Status: Observation ma2 Provider: Jose Maria Capps Location: Telemetry/[facility] (Inpatient) ma2 Condition: Stable ma2 Problem: new ma2 Symptoms: are unchanged ma2 Bed/Room Type: Standard [facility] Room Assignment: 225(05/24/21 15:24) dw Diagnosis - Low back pain ma2 Forms: - Medication Reconciliation Form ma2 - SBAR form ma2 Signatures: Dispatcher [employer] Christine Mendiola RN RN dw Leal, Jahala, RN RN jl7 Dottie Maddox MD MD ma2 Lolly Sinha Sophia, RN RN sl2 Corrections: (The following items were deleted from the chart) 15:24 12:08 ma2 dw
[2021-05-24 12:14] LABS: Blood Morphology Comment NOT SEEN (NOT SEEN); Platelet Estimate ADEQ; White Blood Cell Scan OK (OK)
[2021-05-24] MEDS ORDERED: HYDROMORPHONE HCL 1 MG/ML INJ ONE (14:21)
[2021-05-24 16:18] VITALS: O2SAT 99
[2021-05-24] MEDS: RIVAROXABAN 15 MG TABLET PO SCH ×2 (16:44→17:00)
[2021-05-24] MEDS: METHYLPREDNISOLONE 40 MG INJ IV SCH ×2 (16:44→23:55)
[2021-05-24] MEDS: HYDROMORPHONE HCL 1 MG/ML INJ IV PRN ×2 (16:44→23:55)
[2021-05-24 16:52] VITALS: BMI 48.1
--- NOTE | 2021-05-24 18:09 | RAD REPORT ---
EXAM DESCRIPTION: RAD - Chest Single View - 05/24/2021 5:57 pm CLINICAL HISTORY: HTN COMPARISON: Chest Single View dated 04/14/2020; Chest Pa And Lat (2 Views) dated 11/16/2017; CHEST SING LE VIEW dated 11/21/2011; CHEST PA AND LAT 2 VIEW dated 06/20/2011 FINDINGS: Lines: None. Lungs: No evidence of edema or pneumonia. Pleural: No significant pleural effusions or pneumothorax. Cardiac: Mild cardiomegaly. Bones: No acute fractures. Other: IMPRESSION: No acute cardiopulmonary disease.
[2021-05-24] MEDS: CYCLOBENZAPRINE 10 MG TAB PO SCH (20:39)
[2021-05-24] MEDS: GABAPENTIN 100 MG CAP PO SCH (20:40)
[2021-05-24] MEDS: FUROSEMIDE 40 MG TABLET PO SCH (20:40)
[2021-05-24] MEDS: SOTALOL HCL 80 MG TAB PO SCH (20:41)
[2021-05-24] MEDS: HYDRALAZINE HCL 25 MG TABLET PO SCH (20:41)
[2021-05-24] MEDS: cloNIDine HCL 0.1 MG TAB PO SCH (20:41)
[2021-05-24] MEDS: carvediloL 25 MG TAB PO SCH (20:41)
[2021-05-24] MEDS ORDERED: HYDRALAZINE HCL 25 MG TABLET PO SCH (21:00)
[2021-05-24] MEDS ORDERED: cloNIDine HCL 0.1 MG TAB PO SCH (21:00)
[2021-05-24] MEDS ORDERED: carvediloL 25 MG TAB PO SCH (21:00)
--- NOTE | 2021-05-24 23:03 | HP ---
Date of Admission: 05/24/2021 Chief Complaint: Back pain, trouble walking. History Of Present Illness: This is a 71-year-old female patient who has recurrent problem with neck pain and left shoulder pain. Neck pain radiates to left shoulder and upper left arm also. Recently , she started to have pain in her lower back for last 3-4 days. Denies any fall or injury. This angelina n started when she was trying to sit down in the sofa. No radiation of pain to legs. She was in the process of getting referral to see a neurosurgeon on an outpatient basis and yesterday we increased her gabapentin. She normally takes 100 mg 1 capsule 2 times a day and we advised her to take 2 capsu les 2 times a day until she runs out and then change to 300 mg capsule to take 1 capsule 2 times a da y. We also prescribed her cyclobenzaprine 5 mg at bedtime as of yesterday. Meanwhile, she ends up i n the emergency room today with trouble walking and worsening of her back pain. Denies any loss of b ladder control. Review of Systems: Musculoskeletal as mentioned above. All other systems reviewed and negative. Allergies: TO PENICILLIN. Medications: 1.Carvedilol 25 mg 2 times a day. 2.Clonidine 0.2 mg 2 times a day. 3.Furosemide 80 mg 2 times a day. 4.Gabapentin will be increased to 300 mg 2 times a day. 5.Hydralazine 50 mg tablet, she takes half a tablet 2 times a day. 6.Losartan 100 mg daily. 7.Magnesium oxide 400 mg daily. 8.Xarelto 15 mg daily. 9.Sotalol 80 mg 2 times a day. 10.Cyclobenzaprine 5 mg at bedtime. Past Medical History: Allergic rhinitis, impaired fasting glucose, thyroid nodules, hypertension, hy perlipidemia, paroxysmal atrial fibrillation, chronic kidney disease, leg edema, cervical spondylosis and cervical radiculopathy, osteoarthritis, anemia due to chronic kidney disease, hypomagnesemia. Past Surgical History: Significant for hysterectomy and biopsy of her thyroid nodule done on May 04, 2019, which was negative. Family History: Father , had cerebral aneurysm and hypertension. Mother , had coronary alicia ry disease, diabetes and hypertension. Social History: Negative for smoking. Use of alcohol, occasional. Immunization History: Patient had her COVID-19 immunization; first dose October 05, 2020, second dose October 26, 2020, and booster dose May 01, 2021, Physical Examination: VITAL SIGNS: When she first came into emergency room, blood pressure 124/81, pulse 83, respiratory r ate 16, temperature 98.2, oxygen saturation 97%. General: Awake, alert, oriented, not in distress. HEENT: Head atraumatic, normocephalic. Conjunctivae nonerythematous. Sclerae white. Mouth, no thr ush or edema noted. Ears/Nose, no mass, lesion, discharge noted. Neck: Supple. No JVD, lymph nodes, bruit, thyromegaly noted. Lungs: Bilateral good equal air entry. Clear to auscultation. No rhonchi. No rales. Heart: Normal heart sounds, no murmur or gallop. Abdomen: Soft, bowel sounds normal. No guarding, rigidity, tenderness, mass, hepatosplenomegaly, dis tention, or bruit noted. Extremities: No leg edema. No calf tenderness. Skin: No rash, ulcer, cellulitis. Lymphatics: No lymph node enlargement in neck, supraclavicular, infraclavicular region. Neuro: No focal neurological deficit. Chest: Unremarkable. External Genitalia: Deferred. Rectal: Deferred. Laboratory Data: CAT scan of the cervical spine showed evidence of cervical spondylosis, CAT scan of the thoracic spine was unremarkable and CAT scan of the lumbar spine showed evidence of lumbar spond ylosis along with spinal stenosis and herniated disk. No acute traumatic injury noted. White count 5.6, hemoglobin 11.2, platelets 184. Sodium 146, potassium 3.8, chloride 109, bicarb 30, BUN 28, cre atinine 1.85, glucose 107. Liver function tests unremarkable. Urinalysis negative. COVID-19 test n egative. Impression: 1.Lumbar spondylosis. DICTATION ENDS HERE. RACHEL/MODL Voice ID: [id number]
--- NOTE | 2021-05-25 02:39 | HP ---
Date of Admission: 05/24/2021 Impression: 1.Lumbar spinal stenosis. 2.Lumbar spondylosis. 3.Cervical spondylosis. 4.Hypertension. 5.Hyperlipidemia. 6.Paroxysmal atrial fibrillation. 7.Impaired fasting glucose. 8.Chronic kidney disease, stage IIIB. 9.Anemia due to chronic kidney disease. 10.Hypomagnesemia. Plan: Admit patient to hospital for further evaluation and management of this problem. The patient is appropriate for inpatient and is expected to spend 2 midnights in hospital. We will go ahead and give her pain medication per order. Muscle relaxant will be given at bedtime which is cyclobenzaprin e. We will start her on IV steroid. I will see her tomorrow morning for followup. Consult Physical Therapy to help ambulate her and we will plan to do MRI on her for further evaluation. The patient does not have any acute traumatic injury and once she is able to safely ambulate and pain is under be tter control, we will be able to discharge her to go home and MRI will be helpful to make further dec ision if she will need any surgical intervention for any herniated lumbar disk or not. She should person ve appointment to see neurosurgeon in near future as outpatient and she will be encouraged to keep th at appointment. RACHEL/PATRICIO Voice ID: [id number]
[2021-05-25] MEDS: FUROSEMIDE 40 MG TABLET PO SCH ×3 (09:00→20:54)
[2021-05-25] MEDS ORDERED: LOSARTAN POTASSIUM 50 MG TABLET PO SCH (09:00)
[2021-05-25] MEDS: carvediloL 25 MG TAB PO SCH ×2 (09:21→20:52)
[2021-05-25] MEDS: cloNIDine HCL 0.1 MG TAB PO SCH ×2 (09:22→20:51)
[2021-05-25] MEDS: LOSARTAN POTASSIUM 50 MG TABLET PO SCH (09:22)
[2021-05-25] MEDS: GABAPENTIN 100 MG CAP PO SCH ×2 (09:22→20:55)
[2021-05-25] MEDS: HYDRALAZINE HCL 25 MG TABLET PO SCH ×2 (09:22→20:48)
[2021-05-25] MEDS: MAGNESIUM OXIDE 400 MG TAB PO SCH (09:22)
[2021-05-25] MEDS: SOTALOL HCL 80 MG TAB PO SCH ×2 (09:23→20:49)
[2021-05-25] MEDS: METHYLPREDNISOLONE 40 MG INJ IV SCH ×2 (09:23→16:29)
[2021-05-25] MEDS ORDERED: PNEUMOCOCCAL VACCINE 0.5 ML IMVAC ONE (11:00)
--- NOTE | 2021-05-25 11:05 | RAD REPORT ---
EXAM DESCRIPTION: RAD - Shoulder Left 2 View - 05/25/2021 10:18 am CLINICAL HISTORY: Left shoulder pain FINDINGS: No fracture or dislocation is seen. Moderate osteoarthritis AC joint mainly consisting of osteophytes and joint space narrowing.
--- NOTE | 2021-05-25 11:51 | PN ---
Date of Progress Note: 05/25/2021 Subjective: The patient was seen this morning for followup. No new complaints, problems reported. Vital signs reviewed. She is feeling much better today than yesterday. Her lower back pain has impr ghulam significantly overnight. She still has little pain in her neck and left shoulder area, which is her chronic recurrent problem. Objective: Vital Signs: Reviewed. HEENT: Unremarkable. Lungs: Clear to auscultation. Heart: Sounds normal. Abdomen: Soft. Bowel sounds normal. No guarding, rigidity, tenderness, or distention. Extremities: No leg edema. FERRY HAND: No focal neurological deficit. Impression: 1.Spinal stenosis. 2.Cervical spondylosis with radiculopathy. 3.Hypertension. 4.Chronic kidney disease. Plan: We will continue current Solu-Medrol. Continue current home medications per order. The patie nt will need MRI of spine done. I have ordered that. Unfortunately, it will not be done today. We will get it done tomorrow and after an MRI gets done, we will discharge her tomorrow to go home. The patient's was present with her today at bedside when I saw her. I have advised the patient multiple times in the past including today about importance of lifestyle changes that is diet, exerci se, and weight loss to help improve her overall health including her problem with this back pain and neck pain that she is dealing with. So far, she has not taken it seriously and has not given any ser ious attempt to lose weight with diet and exercise, but once again, I did have a serious discussion w ith her about importance of this lifestyle changes to help improve her overall health. I will see her tomorrow for followup. RACHEL/MODL Voice ID: [id number] Report ID: [id number]
[2021-05-25] MEDS: RIVAROXABAN 15 MG TABLET PO SCH ×3 (16:29→19:22)
[2021-05-25] MEDS: CYCLOBENZAPRINE 10 MG TAB PO SCH (20:52)
[2021-05-25] MEDS: HYDROMORPHONE HCL 1 MG/ML INJ IV PRN (23:34)
[2021-05-26] MEDS: METHYLPREDNISOLONE 40 MG INJ IV SCH ×2 (01:00→08:43)
[2021-05-26] MEDS: cloNIDine HCL 0.1 MG TAB PO SCH (08:43)
[2021-05-26] MEDS: LOSARTAN POTASSIUM 50 MG TABLET PO SCH (08:44)
[2021-05-26] MEDS: FUROSEMIDE 40 MG TABLET PO SCH (08:44)
[2021-05-26] MEDS: HYDRALAZINE HCL 25 MG TABLET PO SCH (08:45)
[2021-05-26] MEDS: carvediloL 25 MG TAB PO SCH (08:45)
[2021-05-26] MEDS: SOTALOL HCL 80 MG TAB PO SCH (08:45)
[2021-05-26] MEDS: MAGNESIUM OXIDE 400 MG TAB PO SCH (08:45)
[2021-05-26] MEDS: GABAPENTIN 100 MG CAP PO SCH (08:45)
[2021-05-26] MEDS ORDERED: LORazepam 2 MG/ML VIAL IV ONE (09:56)
--- NOTE | 2021-05-26 11:46 | RAD REPORT ---
EXAM DESCRIPTION: MRI - Lumbar Spine Wo Con - 05/26/2021 11:11 am CLINICAL HISTORY: Lumbar spinal stenosis with back pain COMPARISON: May 24, 2021 cat scan TECHNIQUE: Sagittal T1, T2 and STIR weighted sequences were obtained. Axial T1 and T2 sequences were obtained through the lumbar disc levels. FINDINGS: L1-2 and L2-3 are unremarkable. Ligamentum flavum and facet hypertrophy L3-4. Thecal sac measures 10 millimeters. Minimal narrowing o f the neural foramina. Ligamentum flavum and facet hypertrophy L4-5. Mild narrowing of the lateral aspects of the thecal sac and lateral recesses bilaterally. AP dimension of the thecal sac is normal. Mild narrowing of the ri ght Facet hypertrophy L5-S1. No disc herniation. The thecal sac is normal caliber. Neural foramina are pa tent No abnormal signal within the bones IMPRESSION: Spondylosis most prevalent at L4-5 in which there is mild right foraminal stenosis and m ild narrowing of the lateral recesses and lateral aspects of the thecal sac bilaterally
[2021-05-26] MEDS: HYDROMORPHONE HCL 1 MG/ML INJ IV PRN (11:48)
--- NOTE | 2021-05-26 11:51 | RAD REPORT ---
EXAM DESCRIPTION: MRI - Thoracic Spine Wo Contr - 05/26/2021 11:13 am CLINICAL HISTORY: Radiculopathy COMPARISON: May 24, 2021 cat scan TECHNIQUE: Sagittal T1 weighted, T2 weighted and T2 STIR weighted sequences were obtained. Axial T2 weighted images were obtained through each disc level. FINDINGS: A significant disc bulge not seen. No disc herniation Central spinal stenosis is not present. The neural foramina are patent. No significant abnormal signal within the bones. Apparent abnormal signal within portions of the spinal cord on sagittal sequences most likely artifac t rather than pathology. IMPRESSION: No significant abnormality is displayed
--- NOTE | 2021-05-26 11:57 | RAD REPORT ---
EXAM DESCRIPTION: MRI - C Spine Wo Cont - 05/26/2021 11:11 am CLINICAL HISTORY: Radiculopathy COMPARISON: 2018 MRI May 24, 2021 cat scan TECHNIQUE: Magnetic resonance imaging of the cervical spine was obtained with coronal and sagittal r econstruction FINDINGS: Images are degraded by patient motion artifact. C2-3 unremarkable Mild spondylosis C3-4 Disc bulge C4-5. Left facet hypertrophy. Mild to moderate narrowing of the left neural foramina Disc bulge and osteophytes C5-6. Disc is thinned. Moderate narrowing of the right neural foramina. Th ecal sac measures 9.5 millimeters. Disc bulge and Small to moderate left paracentral disc osteophyte complex C6-7 C7-T1 unremarkable No significant abnormal signal within the bones. Abnormal signal within the spinal cord on sagittal s equences probably artifact IMPRESSION: Spondylosis C5-6 resulting in moderate right foraminal stenosis and mild central spinal stenosis A small to moderate left paracentral disc osteophyte complex C6-7
[2021-05-26 16:24] VITALS: BP 143/63; TEMP 97.9
--- NOTE | 2021-05-27 18:27 | DS ---
Date of Discharge: 05/26/2021 Disposition: Discharged to go home. Physical Examination: HEENT: Unremarkable. Lungs: Clear to auscultation. Heart: Heart sounds normal. Abdomen: Soft, bowel sounds normal. No guarding, rigidity, tenderness, or distention. Extremities: No leg edema. Laboratory Data: Upon admission, white count 5.6, hemoglobin 11.2, platelets 184. Sodium 146, potas sium 3.8, chloride 109, bicarb 30, BUN 28, creatinine 1.85, glucose 107. Liver function test unremar kable. CAT scan of the cervical spine, thoracic spine, and lumbar spine shows evidence of spondylosi s of cervical spine and lumbar spine with evidence of lumbar spinal stenosis. No acute traumatic clyde nges noted. Chest x-ray unremarkable. Shoulder x-ray of the left shoulder shows moderate osteoarthr itis changes. MRI of the cervical spine, thoracic spine, and lumbar spine done today also shows rossi ges of spondylosis and bulging disk. Hospital Course: A 71-year-old female patient admitted to the hospital with back pain and trouble wa lking. Please see dictated H and P for more information. After patient was evaluated in the ER, she was admitted to the hospital. Her CAT scan had shown lumbar spondylosis, cervical spondylosis, some changes of lumbar spinal stenosis, and 1 herniated disk in the lumbar spine. She was started on IV steroid overall and pain medication was given. Overall, her condition improved. She started ambulat ing well. She does not have any , all her back pain stays in her back does not radiate amy n to her legs. I had a long discussion with her in presence of her regarding importance of l ifestyle changes that is diet control, exercise on a regular basis to help lose weight as lot of her chronic medical problems are directly related to her weight problem. Office has initiated and I will see her at office this week on at 9 a.m. Final Diagnoses: 1.Lumbar spinal stenosis. 2.Lumbar spondylosis. 3.Cervical spondylosis. 4.Hypertension. 5.Hyperlipidemia. 6.Paroxysmal atrial fibrillation. 7.Impaired fasting glucose. 8.Chronic kidney disease, stage IIIB. 9.Anemia due to chronic kidney disease. Discharge Medications And Instructions: 1.Continue prior home medications. 2.Prednisone 10 mg take 3 tablets daily for 3 days, then 2 tablets daily for 3 days, then 1 tablet d aily for 3 days, then stop. RACHEL/PATRICIO Voice ID: [id number] Report ID: [id number]
== END 2021-05-26 15:44 | disposition home or self-care (01) | DRG 552 ==
LOC: ER 08:56 → ERHOLD 12:31 → 2ND 15:43
PROVIDERS: ADMIT Internal Medicine; ATTEND Internal Medicine
DX: M48.061 Spinal stenosis, lumbar region without neurogenic claudication (principal); M47.816 Spondylosis without myelopathy or radiculopathy, lumbar region; M47.22 Other spondylosis with radiculopathy, cervical region; M51.16 Intervertebral disc disorders with radiculopathy, lumbar region; M48.02 Spinal stenosis, cervical region; E78.5 Hyperlipidemia, unspecified; M19.90 Unspecified osteoarthritis, unspecified site; J30.9 Allergic rhinitis, unspecified; I48.0 Paroxysmal atrial fibrillation; D63.1 Anemia in chronic kidney disease; E83.42 Hypomagnesemia; I12.9 Hypertensive chronic kidney disease with stage 1 through stage 4 chronic kidney disease, or unspecified chronic kidney disease; N18.32 Chronic kidney disease, stage 3b; R73.01 Impaired fasting glucose; Z88.0 Allergy status to penicillin; Z79.01 Long term (current) use of anticoagulants; Z79.899 Other long term (current) drug therapy; Z86.73 Personal history of transient ischemic attack (TIA), and cerebral infarction without residual deficits; Z90.710 Acquired absence of both cervix and uterus; Z20.822 Contact with and (suspected) exposure to COVID-19
CPT/HCPCS: 36415; 71045; 72125; 72128; 72131; 72141; 72146; 72148; 80053; 81003; 85025; 96374; 96375; 97116; 97161; 97530; 99285; J1170; J2920; J3360; U0003

== ENCOUNTER 2023-07-30 21:23 | Inpatient (IN) | payer OTHER ==
--- OUTSIDE RECORDS SUMMARY | 2023-07-30 21:26 | XMS REPORT | Continuity of Care Document ---
Author Name Unknown Address [address] [facility] [address] [place] [address] [facility] Address [address] [facility] [address] [place] [address] Care Team Providers Care Pheresis Specialist Name Role Phone Bernardo Rubio Attending Clinician Unavailable JUAN LUIS_MENA_Rorya_S Attending Clinician Unavaila katie Caruso Attending Clinician Unavail able Bernardo Rubio Admitting Clinician Unavailable GC_GCJORGE_Rorya_S Admitting Clinician Unavaila katie Caruso Admitting Clinician Unavail able Payers Payer Name Policy Type Policy Number Effective Date Expirati on Date Source [facility] (MEDICARE REPLACEMENT/ADVANTAGE - PPO) [id number] Problems Condition Name Condition Details Condition Category Status Onset Date Resolution Date Last Treatment Date Treating Clinician Comments Source 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 Osteoarthr osis of the Carpometac arpal Joint of the Thumb Problem Active 2021-07 00:00: 00 [facility] Acquired trigger finger of left index finger Acquired Trigger Finger of Left Index Finger Problem Active 2021-07- 00:00: 00 [facility] Trigger thumb of left hand Trigger Thumb of Left Hand Problem Active 2021-07 00:00: 00 [facility] Carpal tunnel syndrome of right wrist Carpal Tunnel Syndrome of Right Wrist Problem Active 2021-07- 00:00: 00 [facility] Cervical disc disorder with radiculopa thy Cervical Disc Disorder with Radiculopa thy Problem Active 2020-07 00:00: 00 [facility] Low back pain Low Back Pain Problem Active 2020-07 00:00: 00 [facility] Acquired trigger finger Acquired Trigger Finger Problem Active 03-12 00:00: 00 [facility] Idiopathic osteoarthr itis Idiopathic Osteoarthr itis Problem Active 02-09 00:00: 00 [facility] Disorder of synovium Disorder of Synovium Problem Active 02-09 00:00: 00 [facility] Tendon triggering Tendon Triggering Problem Active 10-11 00:00: 00 [facility] Onychomyco sis of toenails Onychomyco sis of Toenails Problem Active 2014-07 00:00: 00 [facility] Anemia Anemia Problem Active 2014-07 00:00: 00 [facility] Cerebrovas cular accident Cerebrovas cular Accident Problem Active 2014-07 00:00: 00 [facility] Plantar fasciitis Plantar Fasciitis Problem Active 2014-07 00:00: 00 [facility] Sleep apnea Sleep Apnea Problem Active 2014-07 00:00: 00 [facility] Allergies, Adverse Reactions, Alerts Allergy Name Allergy Type Status Severity Reaction(s) Onset Date Inactive Date Treating Clinician Comments Source Penicill ins DA Active MO RASHES; ITCHING 08-18 00:00: 00 [facility] Penicill ins DA Active MO 02-24 00:00: 00 [facility] Penicill ins DA Active MO RASHES 02-24 00:00: 00 [facility] No Known Drug Allergie s DA Active U 02-09 00:00: 00 [facility] Penicill ins DA Active MO 02-09 00:00: 00 [facility] PENICILL IN Allergy to substanc e Active 2014-07 00:00: 00 [facility] Medications Ordered Medication Name Filled Medication Name Start Date Stop Date Current Medication? Ordering Clinician Indication Dosage Frequency Signature (SIG) Comments Components Source fluticasone propionate 50 mcg/actuati on nasal spray,suspe nsion RX by other fluticasone propionate 50 mcg/actuati on nasal spray,suspe nsion RX by other 10-11 00:00: 00 No fluticason e propionate 50 mcg/actuat ion nasal spray,susp ension RX by other MD [facility] losartan 50 mg-hydrochl orothiazide 12.5 mg tablet RX by other losartan 50 mg-hydrochl orothiazide 12.5 mg tablet RX by other 10-11 00:00: 00 No losartan 50 mg-hydroch lorothiazi de 12.5 mg tablet RX by other MD [facility] magnesium oxide 400 mg (241.3 mg magnesium) tablet RX by other magnesium oxide 400 mg (241.3 mg magnesium) tablet RX by other 10-11 00:00: 00 No magnesium oxide 400 mg (241.3 mg magnesium) tablet RX by other MD [facility] fluticasone propionate 50 mcg/actuati on nasal spray,suspe nsion RX by other fluticasone propionate 50 mcg/actuati on nasal spray,suspe nsion RX by other 10-11 00:00: 00 No fluticason e propionate 50 mcg/actuat ion nasal spray,susp ension RX by other MD [facility] losartan 50 mg-hydrochl orothiazide 12.5 mg tablet RX by other losartan 50 mg-hydrochl orothiazide 12.5 mg tablet RX by other 10-11 00:00: 00 No losartan 50 mg-hydroch lorothiazi de 12.5 mg tablet RX by other MD [facility] magnesium oxide 400 mg (241.3 mg magnesium) tablet RX by other magnesium oxide 400 mg (241.3 mg magnesium) tablet RX by other 10-11 00:00: 00 No magnesium oxide 400 mg (241.3 mg magnesium) tablet RX by other MD [facility] Tylenol-Cod eine #3 300 mg-30 mg tablet RX by other Tylenol-Cod eine #3 300 mg-30 mg tablet RX by other 10-11 00:00: 00 No Tylenol-Co deine #3 300 mg-30 mg tablet RX by other MD [facility] fluticasone propionate 50 mcg/actuati on nasal spray,suspe nsion RX by other fluticasone propionate 50 mcg/actuati on nasal spray,suspe nsion RX by other 10-11 00:00: 00 No fluticason e propionate 50 mcg/actuat ion nasal spray,susp ension RX by other MD [facility] losartan 50 mg-hydrochl orothiazide 12.5 mg tablet RX by other losartan 50 mg-hydrochl orothiazide 12.5 mg tablet RX by other 10-11 00:00: 00 No losartan 50 mg-hydroch lorothiazi de 12.5 mg tablet RX by other MD [facility] magnesium oxide 400 mg (241.3 mg magnesium) tablet RX by other magnesium oxide 400 mg (241.3 mg magnesium) tablet RX by other 10-11 00:00: 00 No magnesium oxide 400 mg (241.3 mg magnesium) tablet RX by other MD [facility] prednisone 10 mg tablet TAKE 3 TABLETS BY MOUTH ONCE DAILY FOR 3 DAYS THEN 2 TABS DAILY FOR 3 DAYS THEN 1 TAB DAILY FOR 3 DAYS prednisone 10 mg tablet TAKE 3 TABLETS BY MOUTH ONCE DAILY FOR 3 DAYS THEN 2 TABS DAILY FOR 3 DAYS THEN 1 TAB DAILY FOR 3 DAYS No prednisone 10 mg tablet TAKE 3 TABLETS BY MOUTH ONCE DAILY FOR 3 DAYS THEN 2 TABS DAILY FOR 3 DAYS THEN 1 TAB DAILY FOR 3 DAYS [facility] sotalol 80 mg tablet TAKE 1 TABLET BY MOUTH TWICE DAILY sotalol 80 mg tablet TAKE 1 TABLET BY MOUTH TWICE DAILY No sotalol 80 mg tablet TAKE 1 TABLET BY MOUTH TWICE DAILY [facility] triamcinolo ne acetonide 0.1 % topical ointment triamcinolo ne acetonide 0.1 % topical ointment No triamcinol one acetonide 0.1 % topical ointment [facility] Xarelto 15 mg tablet TAKE 1 TABLET BY MOUTH ONCE DAILY Xarelto 15 mg tablet TAKE 1 TABLET BY MOUTH ONCE DAILY No Xarelto 15 mg tablet TAKE 1 TABLET BY MOUTH ONCE DAILY [facility] amlodipine 2.5 mg tablet RX by other amlodipine 2.5 mg tablet RX by other No amlodipine 2.5 mg tablet RX by other MD [facility] carvedilol 25 mg tablet TAKE 1 TABLET BY MOUTH TWICE DAILY carvedilol 25 mg tablet TAKE 1 TABLET BY MOUTH TWICE DAILY No carvedilol 25 mg tablet TAKE 1 TABLET BY MOUTH TWICE DAILY [facility] cephalexin 500 mg capsule TAKE 1 CAPSULE BY MOUTH TWICE DAILY cephalexin 500 mg capsule TAKE 1 CAPSULE BY MOUTH TWICE DAILY No cephalexin 500 mg capsule TAKE 1 CAPSULE BY MOUTH TWICE DAILY [facility] clindamycin HCl 150 mg capsule TAKE 1 CAPSULE BY MOUTH EVERY 6 HOURS clindamycin HCl 150 mg capsule TAKE 1 CAPSULE BY MOUTH EVERY 6 HOURS No clindamyci n HCl 150 mg capsule TAKE 1 CAPSULE BY MOUTH EVERY 6 HOURS [facility] clonidine HCl 0.1 mg tablet RX by other clonidine HCl 0.1 mg tablet RX by other No clonidine HCl 0.1 mg tablet RX by other MD [facility] clonidine HCl 0.2 mg tablet TAKE 1 TABLET BY MOUTH TWICE DAILY clonidine HCl 0.2 mg tablet TAKE 1 TABLET BY MOUTH TWICE DAILY No clonidine HCl 0.2 mg tablet TAKE 1 TABLET BY MOUTH TWICE DAILY [facility] cyclobenzap rine 5 mg tablet TAKE 1 TABLET BY MOUTH AT BEDTIME NEEDED FOR BACK PAIN cyclobenzap rine 5 mg tablet TAKE 1 TABLET BY MOUTH AT BEDTIME NEEDED FOR BACK PAIN No cyclobenza elizabeth 5 mg tablet TAKE 1 TABLET BY MOUTH AT BEDTIME NEEDED FOR BACK PAIN [facility] furosemide 40 mg tablet TAKE 2 TABLETS BY MOUTH TWICE DAILY furosemide 40 mg tablet TAKE 2 TABLETS BY MOUTH TWICE DAILY No furosemide 40 mg tablet TAKE 2 TABLETS BY MOUTH TWICE DAILY [facility] gabapentin 100 mg capsule TAKE 1 CAPSULE BY MOUTH TWICE DAILY gabapentin 100 mg capsule TAKE 1 CAPSULE BY MOUTH TWICE DAILY No gabapentin 100 mg capsule TAKE 1 CAPSULE BY MOUTH TWICE DAILY [facility] gabapentin 300 mg capsule TAKE 1 CAPSULE BY MOUTH TWICE DAILY, STOP TAKING GABAPENTIN 100MG gabapentin 300 mg capsule TAKE 1 CAPSULE BY MOUTH TWICE DAILY, STOP TAKING GABAPENTIN 100MG No gabapentin 300 mg capsule TAKE 1 CAPSULE BY MOUTH TWICE DAILY, STOP TAKING GABAPENTIN 100MG [facility] hydralazine 50 mg tablet TAKE 1 TABLET BY MOUTH TWICE DAILY hydralazine 50 mg tablet TAKE 1 TABLET BY MOUTH TWICE DAILY No hydralazin e 50 mg tablet TAKE 1 TABLET BY MOUTH TWICE DAILY [facility] losartan 100 mg tablet TAKE 1 TABLET BY MOUTH ONCE DAILY losartan 100 mg tablet TAKE 1 TABLET BY MOUTH ONCE DAILY No losartan 100 mg tablet TAKE 1 TABLET BY MOUTH ONCE DAILY [facility] losartan 25 mg tablet RX by other losartan 25 mg tablet RX by other MD No losartan 25 mg tablet RX by other [facility] prednisone 10 mg tablet TAKE 3 TABLETS BY MOUTH ONCE DAILY FOR 3 DAYS THEN 2 TABS DAILY FOR 3 DAYS THEN 1 TAB DAILY FOR 3 DAYS prednisone 10 mg tablet TAKE 3 TABLETS BY MOUTH ONCE DAILY FOR 3 DAYS THEN 2 TABS DAILY FOR 3 DAYS THEN 1 TAB DAILY FOR 3 DAYS No prednisone 10 mg tablet TAKE 3 TABLETS BY MOUTH ONCE DAILY FOR 3 DAYS THEN 2 TABS DAILY FOR 3 DAYS THEN 1 TAB DAILY FOR 3 DAYS [facility] sotalol 80 mg tablet TAKE 1 TABLET BY MOUTH TWICE DAILY sotalol 80 mg tablet TAKE 1 TABLET BY MOUTH TWICE DAILY No sotalol 80 mg tablet TAKE 1 TABLET BY MOUTH TWICE DAILY [facility] triamcinolo ne acetonide 0.1 % topical ointment triamcinolo ne acetonide 0.1 % topical ointment No triamcinol one acetonide 0.1 % topical ointment [facility] Xarelto 15 mg tablet TAKE 1 TABLET BY MOUTH ONCE DAILY Xarelto 15 mg tablet TAKE 1 TABLET BY MOUTH ONCE DAILY No Xarelto 15 mg tablet TAKE 1 TABLET BY MOUTH ONCE DAILY [facility] acetaminoph en 300 mg-codeine 30 mg tablet RX by other acetaminoph en 300 mg-codeine 30 mg tablet RX by other No acetaminop hen 300 mg-codeine 30 mg tablet RX by other MD [facility] allopurinol 300 mg tablet TAKE 1 TABLET BY MOUTH ONCE DAILY allopurinol 300 mg tablet TAKE 1 TABLET BY MOUTH ONCE DAILY No allopurino l 300 mg tablet TAKE 1 TABLET BY MOUTH ONCE DAILY [facility] amlodipine 2.5 mg tablet RX by other amlodipine 2.5 mg tablet RX by other No amlodipine 2.5 mg tablet RX by other MD [facility] carvedilol 25 mg tablet TAKE 1 TABLET BY MOUTH TWICE DAILY carvedilol 25 mg tablet TAKE 1 TABLET BY MOUTH TWICE DAILY No carvedilol 25 mg tablet TAKE 1 TABLET BY MOUTH TWICE DAILY [facility] cephalexin 500 mg capsule TAKE 1 CAPSULE BY MOUTH TWICE DAILY cephalexin 500 mg capsule TAKE 1 CAPSULE BY MOUTH TWICE DAILY No cephalexin 500 mg capsule TAKE 1 CAPSULE BY MOUTH TWICE DAILY [facility] clindamycin HCl 150 mg capsule TAKE 1 CAPSULE BY MOUTH EVERY 6 HOURS clindamycin HCl 150 mg capsule TAKE 1 CAPSULE BY MOUTH EVERY 6 HOURS No clindamyci n HCl 150 mg capsule TAKE 1 CAPSULE BY MOUTH EVERY 6 HOURS [facility] clonidine HCl 0.1 mg tablet RX by other clonidine HCl 0.1 mg tablet RX by other No clonidine HCl 0.1 mg tablet RX by other MD [facility] clonidine HCl 0.2 mg tablet TAKE 1 TABLET BY MOUTH TWICE DAILY clonidine HCl 0.2 mg tablet TAKE 1 TABLET BY MOUTH TWICE DAILY No clonidine HCl 0.2 mg tablet TAKE 1 TABLET BY MOUTH TWICE DAILY [facility] colchicine 0.6 mg tablet TAKE 1 TABLET BY MOUTH TWICE DAILY colchicine 0.6 mg tablet TAKE 1 TABLET BY MOUTH TWICE DAILY No colchicine 0.6 mg tablet TAKE 1 TABLET BY MOUTH TWICE DAILY [facility] cyclobenzap rine 5 mg tablet TAKE 1 TABLET BY MOUTH AT BEDTIME NEEDED FOR BACK PAIN cyclobenzap rine 5 mg tablet TAKE 1 TABLET BY MOUTH AT BEDTIME NEEDED FOR BACK PAIN No cyclobenza elizabeth 5 mg tablet TAKE 1 TABLET BY MOUTH AT BEDTIME NEEDED FOR BACK PAIN [facility] diclofenac 1 % topical gel APPLY 4 GRAMS TO AFFECTED JOINT THREE TIMES A DAY NEEDED diclofenac 1 % topical gel APPLY 4 GRAMS TO AFFECTED JOINT THREE TIMES A DAY NEEDED No diclofenac 1 % topical gel APPLY 4 GRAMS TO AFFECTED JOINT THREE TIMES A DAY NEEDED [facility] furosemide 40 mg tablet TAKE 2 TABLETS BY MOUTH TWICE DAILY furosemide 40 mg tablet TAKE 2 TABLETS BY MOUTH TWICE DAILY No furosemide 40 mg tablet TAKE 2 TABLETS BY MOUTH TWICE DAILY [facility] gabapentin 100 mg capsule TAKE 1 CAPSULE BY MOUTH TWICE DAILY gabapentin 100 mg capsule TAKE 1 CAPSULE BY MOUTH TWICE DAILY No gabapentin 100 mg capsule TAKE 1 CAPSULE BY MOUTH TWICE DAILY [facility] gabapentin 300 mg capsule TAKE 1 CAPSULE BY MOUTH TWICE DAILY gabapentin 300 mg capsule TAKE 1 CAPSULE BY MOUTH TWICE DAILY No gabapentin 300 mg capsule TAKE 1 CAPSULE BY MOUTH TWICE DAILY [facility] hydralazine 50 mg tablet TAKE 1 TABLET BY MOUTH TWICE DAILY hydralazine 50 mg tablet TAKE 1 TABLET BY MOUTH TWICE DAILY No hydralazin e 50 mg tablet TAKE 1 TABLET BY MOUTH TWICE DAILY [facility] losartan 100 mg tablet TAKE 1 TABLET BY MOUTH ONCE DAILY losartan 100 mg tablet TAKE 1 TABLET BY MOUTH ONCE DAILY No losartan 100 mg tablet TAKE 1 TABLET BY MOUTH ONCE DAILY [facility] losartan 25 mg tablet RX by other losartan 25 mg tablet RX by other MD No losartan 25 mg tablet RX by other MD [facility] prednisone 10 mg tablet TAKE 3 TABLETS BY MOUTH ONCE DAILY FOR 3 DAYS THEN 2 TABS DAILY FOR 3 DAYS THEN 1 TAB DAILY FOR 3 DAYS prednisone 10 mg tablet TAKE 3 TABLETS BY MOUTH ONCE DAILY FOR 3 DAYS THEN 2 TABS DAILY FOR 3 DAYS THEN 1 TAB DAILY FOR 3 DAYS No prednisone 10 mg tablet TAKE 3 TABLETS BY MOUTH ONCE DAILY FOR 3 DAYS THEN 2 TABS DAILY FOR 3 DAYS THEN 1 TAB DAILY FOR 3 DAYS [facility] sotalol 80 mg tablet TAKE 1 TABLET BY MOUTH TWICE DAILY sotalol 80 mg tablet TAKE 1 TABLET BY MOUTH TWICE DAILY No sotalol 80 mg tablet TAKE 1 TABLET BY MOUTH TWICE DAILY [facility] triamcinolo ne acetonide 0.1 % topical ointment triamcinolo ne acetonide 0.1 % topical ointment No triamcinol one acetonide 0.1 % topical ointment [facility] Xarelto 15 mg tablet TAKE 1 TABLET BY MOUTH ONCE DAILY Xarelto 15 mg tablet TAKE 1 TABLET BY MOUTH ONCE DAILY No Xarelto 15 mg tablet TAKE 1 TABLET BY MOUTH ONCE DAILY [facility] acetaminoph en 300 mg-codeine 30 mg tablet RX by other acetaminoph en 300 mg-codeine 30 mg tablet RX by other MD Melendez acetaminop hen 300 mg-codeine 30 mg tablet RX by other MD [facility] allopurinol 300 mg tablet TAKE 1 TABLET BY MOUTH ONCE DAILY allopurinol 300 mg tablet TAKE 1 TABLET BY MOUTH ONCE DAILY No allopurino l 300 mg tablet TAKE 1 TABLET BY MOUTH ONCE DAILY [facility] amlodipine 2.5 mg tablet RX by other amlodipine 2.5 mg tablet RX by other No amlodipine 2.5 mg tablet RX by other MD [facility] carvedilol 25 mg tablet TAKE 1 TABLET BY MOUTH TWICE DAILY carvedilol 25 mg tablet TAKE 1 TABLET BY MOUTH TWICE DAILY No carvedilol 25 mg tablet TAKE 1 TABLET BY MOUTH TWICE DAILY [facility] cephalexin 500 mg capsule TAKE 1 CAPSULE BY MOUTH TWICE DAILY cephalexin 500 mg capsule TAKE 1 CAPSULE BY MOUTH TWICE DAILY No cephalexin 500 mg capsule TAKE 1 CAPSULE BY MOUTH TWICE DAILY [facility] clindamycin HCl 150 mg capsule TAKE 1 CAPSULE BY MOUTH EVERY 6 HOURS clindamycin HCl 150 mg capsule TAKE 1 CAPSULE BY MOUTH EVERY 6 HOURS No clindamyci n HCl 150 mg capsule TAKE 1 CAPSULE BY MOUTH EVERY 6 HOURS [facility] clonidine HCl 0.1 mg tablet RX by other clonidine HCl 0.1 mg tablet RX by other No clonidine HCl 0.1 mg tablet RX by other MD [facility] clonidine HCl 0.2 mg tablet TAKE 1 TABLET BY MOUTH TWICE DAILY clonidine HCl 0.2 mg tablet TAKE 1 TABLET BY MOUTH TWICE DAILY No clonidine HCl 0.2 mg tablet TAKE 1 TABLET BY MOUTH TWICE DAILY [facility] colchicine 0.6 mg tablet TAKE 1 TABLET BY MOUTH TWICE DAILY colchicine 0.6 mg tablet TAKE 1 TABLET BY MOUTH TWICE DAILY No colchicine 0.6 mg tablet TAKE 1 TABLET BY MOUTH TWICE DAILY [facility] cyclobenzap rine 5 mg tablet TAKE 1 TABLET BY MOUTH AT BEDTIME NEEDED FOR BACK PAIN cyclobenzap rine 5 mg tablet TAKE 1 TABLET BY MOUTH AT BEDTIME NEEDED FOR BACK PAIN No cyclobenza elizabeth 5 mg tablet TAKE 1 TABLET BY MOUTH AT BEDTIME NEEDED FOR BACK PAIN [facility] diclofenac 1 % topical gel APPLY 4 GRAMS TO AFFECTED JOINT THREE TIMES A DAY NEEDED diclofenac 1 % topical gel APPLY 4 GRAMS TO AFFECTED JOINT THREE TIMES A DAY NEEDED No diclofenac 1 % topical gel APPLY 4 GRAMS TO AFFECTED JOINT THREE TIMES A DAY NEEDED [facility] furosemide 40 mg tablet TAKE 2 TABLETS BY MOUTH TWICE DAILY furosemide 40 mg tablet TAKE 2 TABLETS BY MOUTH TWICE DAILY No furosemide 40 mg tablet TAKE 2 TABLETS BY MOUTH TWICE DAILY [facility] gabapentin 100 mg capsule TAKE 1 CAPSULE BY MOUTH TWICE DAILY gabapentin 100 mg capsule TAKE 1 CAPSULE BY MOUTH TWICE DAILY No gabapentin 100 mg capsule TAKE 1 CAPSULE BY MOUTH TWICE DAILY [facility] gabapentin 300 mg capsule TAKE 1 CAPSULE BY MOUTH TWICE DAILY gabapentin 300 mg capsule TAKE 1 CAPSULE BY MOUTH TWICE DAILY No gabapentin 300 mg capsule TAKE 1 CAPSULE BY MOUTH TWICE DAILY [facility] hydralazine 50 mg tablet TAKE 1 TABLET BY MOUTH TWICE DAILY hydralazine 50 mg tablet TAKE 1 TABLET BY MOUTH TWICE DAILY No hydralazin e 50 mg tablet TAKE 1 TABLET BY MOUTH TWICE DAILY [facility] losartan 100 mg tablet TAKE 1 TABLET BY MOUTH ONCE DAILY losartan 100 mg tablet TAKE 1 TABLET BY MOUTH ONCE DAILY No losartan 100 mg tablet TAKE 1 TABLET BY MOUTH ONCE DAILY [facility] losartan 25 mg tablet RX by other losartan 25 mg tablet RX by other MD No losartan 25 mg tablet RX by other MD [facility] Vital Signs Vital Name Observation Time [facility]ation [facility]22-09-09 00:00:00 64 [in_i] [facility] BMI (Body Mass Index) 2022-09-09 00:00:00 49.8 kg/m2 [facility] Body Weight 2022-09-09 00:00:00 290 [lb_av] [facility] Height 2022-04-30 00:00:00 64 [in_i] [facility] BMI (Body Mass Index) 2022-04-30 00:00:00 49.8 kg/m2 [facility] Body Weight 2022-04-30 00:00:00 290 [lb_av] [facility] Procedures Procedure Date / Time Performed Performing Clinicia n Source XR, hand, 3 or more view 2022-04-30 00:00:00 [facility] Encounters Start Date/Time End Date/Time Encounter Type Admission Type Attending [facility] Facility Care Department Encounter ID Source 2022-08-18 13:00:00 Inpatient Bernardo Guillen [facility] [id number] [facility] 2023-05-15 00:00:00 2023-05-15 00:00:00 Outpatient GC_GCBZW_Ka diyala_S PRIV PRIV [id number] [facility] 2023-05-14 00:00:00 2023-05-14 00:00:00 Outpatient GC_GCBZW_Ka diyala_S PRIV PRIV [id number] [facility] 2022-09-09 00:00:00 2022-09-09 00:00:00 Bernardo Rubio MD: [address] [place] [id number] , Ph. [phone] [place] [facility] [id number] [facility] 2022-08-26 05:54:00 2022-08-26 05:54:00 [facility] [id number] [facility] 2022-08-26 00:00:00 2022-08-26 00:00:00 Bernardo Rubio MD: [address] [place], [place] [id number] , Ph. [phone] [facility] [place] [facility] [id number] [facility] 2022-08-11 00:00:00 2022-08-11 00:00:00 Outpatient FOG_Jose Luis Hamlin AOSM AO [id number] [facility] 2022-08-11 00:00:00 2022-08-11 00:00:00 Outpatient FOG_Jose Luis Hamlin AOSM AOSM [id number] [facility] 2022-08-11 00:00:00 2022-08-11 00:00:00 Outpatient FOG_Jose Luis Hamlin AOSM AOSM [id number] [facility] 2022-08-11 00:00:00 2022-08-11 00:00:00 Outpatient FOG_Jose Luis Hamlin AOSM AO [id number] [facility] 2022-04-30 08:00:00 2022-04-30 09:00:00 Outpatient Bernardo Barth [facility] [id number] [address] [place] [address] [facility] 2022-04-30 00:00:00 2022-04-30 00:00:00 Outpatient FOG_Jose Luis Hamlin AOSM AO [id number] [facility] 2022-04-30 00:00:00 2022-04-30 00:00:00 Bernardo Rubio MD: [address] [place] [phone] , Ph. [phone] [facility] [place] [facility] [employer] [facility] [id number] [facility] 2022-04-28 00:00:00 2022-04-28 00:00:00 Outpatient FOG_Jose Luis Hamlin AOSM AOSM [id number] [facility] 2022-01-08 00:00:00 2022-01-08 00:00:00 Outpatient FOG_Jose Luis _Kulwant_ AO AO [id number] [facility] Notes Date/Time Note Provider Source 2022-08-26 08:09:00 [id number] [facility]DT Operative NoteREPORT#:[id number] REPORT STATUS: SignedDATE:08/26/22 TIME: 808 PATIENT: TERRI AUSTIN UNIT #: [id number]#: [id number] ROOM/BED:: 50 AGE: 72 SEX: F ATTEND: Bernardo Rubio AUTHOR: Bernardo Rubio MD * ALL edits or amendments must be made on the electronic/computer document * Operative Report Operative NoteNote:DATE OF SERVICE: 08/26/22PREOPERATIVE DIAGNOSIS: 1. left index trigger finger2. left trigger thumbPOSTOPERATIVE DIAGNOSIS: 1. left index trigger finger2. left trigger thumbOPERATION PERFORMED: 1. left index finger A1 yoseph release2. left trigger thumb releaseSURGEON: BALJINDER Whittington SURGEON: ANESTHESIA: generalCOMPLICATIONS: None.ESTIMATED BLOOD LOSS: MinimalTOURNIQUET TIME: 10 minutes at 250 mmHgSPECIMENS: None FINDINGS:Complete release of the A1 yoseph.INDICATIONS: This is a 72 year old female with left thumb and left index finger trigger finger. Patient wishes to proceed with surgical release. Risks, benefits, and alternatives to the procedure were discussed with the patient in detail preoperatively. Risks include, but not limited to, infection, damage to blood vessels or nerves, stiffness of fingers, and need for further surgery. Patient verbalized understanding of these risk and consented to proceed.OPERATIVE NOTE: Patient was identified in the preoperative holding area and the correct surgical site was marked. Patient was then brought to the Operating Roomwhere a formal time-out was performed to confirm the correct patient, site, and planned operation. General anesthesia care was provided by the anesthesia team. A well padded tourniquet was placed on the upper arm. Patient was then prepped and draped in the usual sterile fashion. Local anesthetic was then injected superficially at the location of the A1 yoseph in the left palm. The hand was then exsanguinated and tourniquet inflated.We began w/ the index finger. An approximately 2 cm longitudinal incision was made over the A1 yoseph. Careful dissection down to the yoseph was made and incised using a knife. Complete resection was ensured using tenotomy scissors. At this time, the patient could make a full fist and had full passive extension.There was good excursion of the tendon.We turned our attention to the thumb. An approximately 2 cm transverse incision was made over the A1 yoseph. Careful dissection down to the yoseph was made and incised using a knife. Complete resection was ensured using tenotomy scissors. At this time, the patient had full passive extension. There was good excursion of the tendon.At this time, the skin was closed using 4.0 nylon. Sterile dressing 4 x 4 gauze,gauze dressing and KARLO wrap were then applied. The tourniquet was then deflated.All sponge, needle and instrument counts were correct at the end of the procedure. The hand had excellent perfusion at the end of the procedure. Patientwas then transferred to the recovery room in stable condition. [facility]:[id number] OF REPORT OPOperative [id number]:09:00Y.[id number] ilable for patient [id number]:13:27 [facility] 11:28:00 [id number] +[id number]+[id number]/[id number] [address] PATIENT NAME: TERRI AUSTIN ADMIT DATE: ACCOUNT NO: [id number] ROOM NO: AGE: 72 REPORT TYPE: ELECTROCARDIOGRAM SEX: F ADMITTING PHYSICIAN: ATTENDING PHYSICIAN:Bernardo Rubio MD Order:[id number] Reason : PRE-OP CLEARANCE HTN Test Date/Time Stamp:WedApr 30 2022 11:28:47Blood Pressure : / mmHGVent. Rate : 088 BPM Atrial Rate : 000 BPM P-R Int : 000 ms QRS Dur : 088 ms QT Int : 368 ms P-R-T Axes : 000 -06 057 degrees QTc Int : 445 ms Atrial fibrillationLow voltage QRSCannot rule out Anterior infarct , age undeterminedAbnormal ECGNo previous ECGs availableConfirmed by SURENDRA KENDRICK MD ([id number]) on 05/03/2022 10:06:41 AM Referred By: Bernardo Rubio Confirmed by:SURENDRA KENDRICK MD PATIENT NAME: TERRI AUSTIN .[id number] AVAvailable for patient [id number]:07:07 [facility] 2019-02-24 14:20:00 [id number] jFeBZKbJhq[id number]:2 [id number] [facility] [place] [address] PATIENT NAME: TERRI AUSTIN ADMIT DATE: 02/24/19ACCOUNT NO: [id number] ROOM NO: AGE: 68 REPORT TYPE: OPERATIVE REPORT SEX: F ADMITTING PHYSICIAN: ATTENDING PHYSICIAN:Kulwant Amaya MD OPERATION DATE: 02/24/2019 PREOPERATIVE DIAGNOSES:1. Right index finger trigger.2. Right index finger flexor tendosynovitis.3. Right thumb basilar joint arthritis, grade III. POSTOPERATIVE DIAGNOSES:1. Right index finger trigger.2. Right index finger flexor tendosynovitis.3. Right thumb basilar joint arthritis, grade III. PROCEDURES PERFORMED:1. Right index finger trigger annular yoseph release.2. Right index finger flexor tendinosis synovectomy.3. Right thumb metacarpotrapezial joint steroid injection. SURGEON: Kulwant Amaya MD ENGINEERING DRAFTER: ANESTHESIA: IV sedation, [place] [facility], 1% lidocainemetacarpal block 10 mL index finger, right hand performed by Dr. Leanna Amaya. INDICATION: A 68-year-old black female with triggering and pain in her rightindex finger for trigger release, tenolysis and indicated procedures. Thepatient also has painful base of thumb joint arthritis, grade III per x-rayaccompanying the patient, for steroid injection. PROCEDURE IN DETAIL: After satisfactory IV sedation, the right index finger wasadministered 10 mL of 1% lidocaine metacarpal block. The right hand and wristwere then prepped and draped in the usual orthopedic fashion. All dissectionwas performed under 2-1/2 power magnification. Hand was exsanguinated and thetourniquet was inflated to 225 mmHg. Oblique incision was made along the distal palmar crease at the base of theright index finger, dissected down through skin and subcutaneous tissue.Neurovascular bundles were protected. Bleeding controlled with Bovie cautery.Markedly thickened annular yoseph was present and and the A1 annular yoseph was released. Traction lysis of the flexor tendons and synovectomy performed on the index and sublimis profundus tendon. There was good excursion of the tendons. Wounds were irrigated with saline and PATIENT NAME: TERRI AUSTIN Bacitracin. A 0.25% Marcaine, epinephrine, and Kenalog solution placed alongthe flexor tendinosis and skin closed with 4-0 nylon mattress sutures. Bulkycompression dressing and Karlo wrap was applied. Under Fluoroscan control, the right thumb CMC joint was injected with 0.25%Marcaine, epinephrine, and Kenalog solution 3 mL. The patient tolerated allprocedures well and returned to recovery room in satisfactory condition. Dictated By: Kulwant Amaya MD WT: OP:KARLEE/JENNIFER/FILIDD: 02/24/2019 14:20:26DT: 02/24/2019 22:11:53Conf#: [id number]/DID#: [id number] Authenticated and Edited by Kulwant Amaya MD On 03/06/19 7:50:03 AM at 0752 PATIENT NAME: TERRI AUSTIN [id number]:11:00Y.[id number] lable [facility] patient [id number]:52:30 HCATO
[2023-07-30 22:40] LABS: Absolute Lymphocytes (CBC) 1.7 K/uL (0.7-4.9); Hematocrit 31.5 % (36.0-45.0); Lymphocytes % 20.8 % (15.3-44.8); MCV 95.8 fL (80-100); MPV 8.2 fL (7.6-11.3); Platelets 207 thou/uL (152-406); RBC Red Blood Cell Count 3.29 M/uL (3.86-4.86)
[2023-07-30 22:47] LABS: Protime INR 1.45
[2023-07-30 23:00] LABS: Albumin 3.3 g/dL (3.4-5.0); Bilirubin Direct 0.5 mg/dL (0-0.2); Bilirubin Indirect, Calculated 0.8 mg/dL (0.2-0.8); Bilirubin Total 1.3 mg/dL (0.2-1.0); Magnesium 2.1 mg/dL (1.6-2.4); Potassium 4.3 mEq/L (3.5-5.1); Protein, Total 8.4 g/dL (6.4-8.2); Troponin High Sensitivity 17.3 pg/mL (<58.9)
[2023-07-30] MEDS ORDERED: FUROSEMIDE 40 MG/4 ML VIAL ONE (23:59)
--- NOTE | 2023-07-31 01:33 | EDPHYS ---
Physician Documentation [facility] Name: Michelle Hadley Age: 73 yrs Sex: Female : 1950 Arrival Date: 07/30/2023 Time: 21:23 Bed 18 Private MD: ED Physician Kirill Frias HPI: 07/30 22:10 This 73 yrs old Black Female presents to ER via Wheelchair with complaints of Flu cp Symptoms. 22:10 The patient has shortness of breath with light activity, when lying down. cp 22:10 Onset: The symptoms/episode began/occurred 2 week(s) ago. Duration: The symptoms are cp continuous, and are steadily getting worse. Associated signs and symptoms: Pertinent positives: productive cough, upper back pain and neck pain and shoulder pain, Pertinent negatives: chest pain, dizziness, fever, hemoptysis, vomiting. 22:10 Severity of symptoms: in the emergency department the symptoms are unchanged despite cp home interventions. Historical: - Allergies: 21:41 PENICILLINS; km8 - PMHx: 21:41 Atrial Fib; CVA; Hypertension; TIA; km8 - PSHx: 21:41 Total abdominal hysterectomy; km8 - Immunization history:: Client reports receiving the 2nd dose of the Covid vaccine, Flu vaccine is up to date. - Social history:: Smoking status: Patient denies any tobacco usage or history of. Patient/guardian denies using alcohol, street drugs. ROS: 22:15 Constitutional: Negative for body aches, chills, fever, poor PO intake, cp 22:15 Eyes: Negative for injury, pain, redness, and discharge, cp 22:15 ENT: Negative for drainage from ear(s), ear pain, sore throat, difficulty swallowing, difficulty handling secretions, 22:15 Cardiovascular: Positive for edema, Negative for chest pain, palpitations, 22:15 Respiratory: Positive for cough, "sounds productive", shortness of breath, on exertion. Negative for wheezing, 22:15 Abdomen/GI: Negative for abdominal pain, vomiting, diarrhea, constipation, 22:15 Back: Positive for pain at rest, pain with movement, of the left trapezius, right trapezius, left scapular area and right scapular area, 22:15 Skin: Negative for rash, 22:15 Neuro: Negative for altered mental status, headache, syncope, weakness, 22:15 All other systems are negative, Exam: 22:20 Constitutional: The patient appears in no acute distress, alert, awake, cp non-diaphoretic, non-toxic, well developed, well nourished, obese, 22:20 Head/Face: Normocephalic, atraumatic. cp 22:20 Eyes: Periorbital structures: appear normal, Conjunctiva: normal, no exudate, no injection, Sclera: no appreciated abnormality, Lids and lashes: appear normal, bilaterally, 22:20 ENT: External ear(s): are unremarkable, Nose: is normal, Mouth: Lips: moist, Oral mucosa: pink and intact, moist, Posterior pharynx: is normal, airway is patent, no erythema, no exudate, 22:20 Neck: ROM/movement: pain, that is mild, with any movement, limited range of motion, is not appreciated, nuchal rigidity, is not appreciated, 22:20 Chest/axilla: Inspection: normal, Palpation: is normal, no crepitus, no tenderness, 22:20 Cardiovascular: Rate: tachycardic, Rhythm: irregular, Edema: ankle edema, that is moderate, JVD: is not appreciated, 22:20 Respiratory: the patient does not display signs of respiratory distress, Respirations: labored breathing, that is mild, Breath sounds: decreased breath sounds, that are mild, throughout, stridor, is not appreciated, wheezing: is not appreciated, 22:20 Abdomen/GI: Inspection: obese Palpation: abdomen is soft and non-tender, in all quadrants, 22:20 Back: pain, that is mild, of the left trapezius, right trapezius, left scapular area and right scapular area, ROM is painful, with all movement, 22:20 Skin: cellulitis, is not appreciated, no rash present. 22:20 Neuro: Orientation: to person, place \\T\\ time. Mentation: is normal, Motor: moves all fours, strength is normal, Sensation: is normal, 23:00 ECG was reviewed by the Attending Physician. cp Vital Signs: 21:40 BP 153 / 89; Pulse 120; Resp 18; Temp 98.3(O); Pulse Ox 98% on R/A; Weight 129.73 kg km8 (R); Height 5 ft. 4 in. (R); Pain 10/10; 22:30 BP 148 / 84; Pulse 89; Resp 18; Pulse Ox 98% on R/A; km8 23:00 BP 159 / 102; Pulse 105; Resp 18; Pulse Ox 98% on R/A; 8 23:30 BP 137 / 96; Pulse 94; Resp 18; Pulse Ox 97% on R/A; [facility] 07/31 00:00 BP 147 / 99; Pulse 93; Resp 18; Pulse Ox 98% on R/A; [facility] 01:00 BP 162 / 89; Pulse 101; Resp 18; Pulse Ox 100% ; [facility] 02:00 BP 158 / 86; Pulse 82; Pulse Ox 100% on R/A; [facility] 07/30 21:40 Body Mass Index 49.09 (129.73 kg, 162.56 cm) [facility] 07/30 21:40 Pain Scale: Adult [facility] MDM: 07/30 21:45 Patient medically screened. cp 23:00 Differential diagnosis: CHF exacerbation, Myocardial Infarction pneumonia, Pneumothorax cp pulmonary edema, Pulmonary Embolism Sepsis. 07/31 01:32 ED course: CT report - EXAM: CT Chest Without Intravenous Contrast CLINICAL HISTORY: sp4 back pain, shortness of breath TECHNIQUE: Axial computed tomography images of the chest without intravenous contrast. Sagittal and coronal reformatted images were created and reviewed. This CT exam was performed using one or more of the following dose reduction techniques: automated exposure control, adjustment of the mA and/or kV according to patient size, and/or use of iterative reconstruction technique. COMPARISON: CT Chest dated 05/03/2018 FINDINGS: Lungs: Mosaic attenuation within the lungs bilaterally. No mass. No consolidation. Pleural space: Trace right pleural effusion. No pneumothorax. Heart: The heart is mildly to moderately enlarged. Coronary artery calcification. No significant pericardial effusion. Mediastinum: Small hiatal hernia. Thyroid: Stable enlargement of the left thyroid. Bones/joints: Multilevel spondylosis. No acute fracture. No dislocation. Soft tissues: Unremarkable. Vasculature: Mild atherosclerotic disease. Lymph nodes: Unremarkable. No enlarged lymph nodes. Gallbladder and bile ducts: 2.5 cm gallstone. Pancreas: Mild pancreatic parenchymal atrophy. Adrenals: Stable left adrenal calcifications which can be seen in the setting of prior infection, inflammation or hemorrhage. IMPRESSION: 1. Mosaic attenuation within the lungs bilaterally. Differential considerations include small airways disease, small vessel disease and interstitial infiltrates. Trace right pleural effusion. 2. Other findings as above. 01:35 Data reviewed: vital signs, nurses notes, lab test result(s), EKG, radiologic studies, cp CT scan, plain films, and as a result, I will admit patient. 01:35 I considered the following discharge prescriptions or medication management in the emergency department Medications were administered in the Emergency Department. See MAR. Care significantly affected by the following chronic conditions: Hypertension, Congestive Heart Failure, Obesity. Counseling: I had a detailed discussion with the patient and/or guardian regarding the historical points, exam findings, and any diagnostic results supporting the discharge/admit diagnosis, lab results, radiology results. Response to treatment: the patient's symptoms have mildly improved after treatment. 07/30 22:05 Order name: Basic Metabolic Panel; Complete Time: 23:22 07/30 23:22 Interpretation: Normal except: GLUC 128; CRE 1.58; GFR 34. cp 07/30 22:05 Order name: CBC with Diff; Complete Time: 22:56 07/30 22:56 Interpretation: Normal except: RBC 3.29; HGB 10.5; HCT 31.5; RDW 15.8. 07/30 22:05 Order name: LFT's; Complete Time: 23:22 cp 07/30 23:22 Interpretation: Normal except: ALK 119; BILIT 1.3; BILID 0.5; TP 8.4; ALB 3.3; GLOB cp 5.1; A/G 0.6. 07/30 22:05 Order name: Magnesium; Complete Time: 23:22 cp 07/30 22:05 Order name: NT PRO-BNP; Complete Time: 23:22 cp 07/30 23:22 Interpretation: Abnormal: NT PRO-BNP 4785. cp 07/30 22:05 Order name: PT-INR; Complete Time: 22:56 cp 07/30 22:05 Order name: Troponin HS; Complete Time: 23:22 cp 07/30 22:37 Order name: COVID-19 SARS RT PCR; Complete Time: 01:32 cp 07/30 22:37 Order name: Influenza Screen (a \\T\\ B); Complete Time: 01:32 cp 07/31 01:49 Order name: Basic Metabolic Panel [facility] 07/31 01:49 Order name: Basic Metabolic Panel [facility] 07/31 01:49 Order name: CBC with Automated Diff EDMS 07/31 01:49 Order name: CBC with Automated Diff EDMS 07/31 01:49 Order name: NT PRO-BNP EDMS 07/31 01:49 Order name: NT PRO-BNP EDMS 07/31 01:49 Order name: Troponin High Sensitivity EDMS 07/31 01:49 Order name: Troponin High Sensitivity EDMS 07/31 01:49 Order name: Troponin High Sensitivity EDMS 07/30 22:05 Order name: XRAY Chest (1 view) cp 07/30 23:27 Order name: CT Chest Wo Con cp 07/30 22:05 Order name: EKG; Complete Time: 22:06 cp 07/30 22:05 Order name: Cardiac monitoring; Complete Time: 22:59 cp 07/30 22:05 Order name: EKG - Nurse/Tech; Complete Time: 22:58 cp 07/30 22:05 Order name: IV Saline Lock; Complete Time: 22:32 cp 07/30 22:05 Order name: Labs collected and sent; Complete Time: 22:32 cp 07/30 22:05 Order name: O2 Per Protocol; Complete Time: 22:32 cp 07/30 22:05 Order name: O2 Sat Monitoring; Complete Time: 22:32 cp EC/12 23:00 Rate is 108 beats/min. Rhythm is irregular. QRS interval is normal. QT interval is cp normal. T waves are Inverted in lead aVR. Interpreted by me. Reviewed by me. Administered Medications: 07/31 00:01 Drug: Furosemide IVP 40 mg IVP once; give over 2 minutes Route: IVP; Site: right me1 antecubital; 01:48 Follow up: Response: No adverse reaction km8 02:45 Drug: Metoprolol PO 25 mg PO once Route: PO; jw7 03:04 Follow up: Response: No adverse reaction km8 Disposition: 01:32 Co-signature as Attending Physician, Kirill Frias MD I agree with the assessment sp4 and plan of care. I reviewed the patient's care provided by Advanced Practice Provider \\T\\ agree w/ the diagnosis \\T\\ care plan. I personally saw the pt \\T\\ performed a substantive portion of the visit, incldng all aspects of the (History/Exam/Medical Decision Making). Disposition Summary: 07/31/23 01:32 Hospitalization Ordered Notes: Hospitalization Status: Inpatient Admission cp Provider: Jose Maria Capps cp Location: Telemetry/MedSurg (Inpatient) cp Condition: Stable cp Problem: an acute exacerbation cp Symptoms: have improved cp Bed/Room Type: Standard cp Room Assignment: 225(07/31/23 02:58) lg3 Diagnosis - Unspecified combined systolic (congestive) and diastolic (congestive) heart failure cp - Orthopnea cp - Chronic atrial fibrillation cp Forms: - Medication Reconciliation Form cp - SBAR form cp - Leadership Thank You Letter cp Signatures: Dispatcher [employer] EDMS Haja Garza PA PA cp Kylah Russo, RN RN lg3 Lizy Marquez RN RN jw7 Kirill Frias MD MD sp4 Zehra Silva RN RN me1 Evangelina Sandhu RN RN km8 Corrections: (The following items were deleted from the chart) 02:58 01:32 cp lg3 08/01 01:26 07/31 02:47 This 73 yrs old Black Female presents to ER via Wheelchair with complaints cp of Flu Symptoms. sp4 08/01 01:28 07/30 22:10 Associated signs and symptoms: Pertinent positives: productive cough, upper cp back pain, Pertinent negatives: chest pain, dizziness, fever, hemoptysis, vomiting, cp
--- NOTE | 2023-07-31 01:33 | ER ---
Nurse's Notes [facility] Name: Michelle Hadley Age: 73 yrs Sex: Female : 1950 Arrival Date: 07/30/2023 Time: 21:23 Bed 18 Private MD: Diagnosis: Unspecified combined systolic (congestive) and diastolic (congestive) heart failure;Orthopnea;Chronic atrial fibrillation Presentation: 07/30 21:40 Chief complaint: Patient states: cough, congestion, and neck and shoulder pains for 2 km8 weeks; denies fever. Coronavirus screen: Client denies travel out of the [place] in the last 14 days. Ebola Screen: No symptoms or risks identified at this time. Initial Sepsis Screen: Does the patient meet any 2 criteria? HR > 90 bpm. No. Patient's initial sepsis screen is negative. Does the patient have a suspected source of infection? No. Patient's initial sepsis screen is negative. Risk Assessment: Do you want to hurt yourself or someone else? Patient reports no desire to harm self or others. Onset of symptoms is unknown. 21:40 Method Of Arrival: Wheelchair km8 21:40 Acuity: DOROTHY 3 km8 Triage Assessment: 21:41 General: Appears in no apparent distress. comfortable, Behavior is calm, cooperative, km8 appropriate for age. Pain: Complains of pain in neck and bilateral shoulders Pain currently is 10 out of 10 on a pain scale. EENT: Reports nasal congestion. Neuro: Level of Consciousness is awake, alert, obeys commands, Oriented to person, place, time, situation. Cardiovascular: Denies chest pain, shortness of breath, Capillary refill < 3 seconds Patient's skin is warm and dry. Respiratory: Airway is patent Respiratory effort is even, unlabored, Respiratory pattern is regular, symmetrical. GI: No signs and/or symptoms were reported involving the gastrointestinal system. : No signs and/or symptoms were reported regarding the genitourinary system. Derm: Skin is intact, is healthy with good turgor, Skin is dry, Skin is pink, warm \T\ dry. normal, Skin temperature is warm. Musculoskeletal: Reports pain in neck and bilateral shoulders. Historical: - Allergies: 21:41 PENICILLINS; km8 - PMHx: 21:41 Atrial Fib; CVA; Hypertension; TIA; km8 - PSHx: 21:41 Total abdominal hysterectomy; km8 - Immunization history:: Client reports receiving the 2nd dose of the Covid vaccine, Flu vaccine is up to date. - Social history:: Smoking status: Patient denies any tobacco usage or history of. Patient/guardian denies using alcohol, street drugs. Screenin:07 [facility] ED Fall Risk Assessment (Adult) History of falling in the last 3 months, me1 including since admission No falls in past 3 months (0 pts) Confusion or Disorientation No (0 pts) Intoxicated or Sedated No (0 pts) Impaired Gait No (0 pts) Mobility Assist Device Used No (0 pt) Altered Elimination No (0 pt) Score/Fall Risk Level 0 - 2 = Low Risk Maintained a safe environment, Provided non-skid footwear, Hourly rounding (assess needs \T\ fall precautionary measures) done. Abuse screen: Denies threats or abuse. Nutritional screening: No deficits noted. Tuberculosis screening: No symptoms or risk factors identified. Assessment: 22:07 General: Appears uncomfortable, well groomed, well developed, well nourished, Behavior me1 is calm, cooperative, appropriate for age, Reports cough, congestion, and neck and shoulder pains for 2 weeks; denies fever. Pain: Complains of pain in neck and bilateral shoulder Pain does not radiate. Pain currently is 10 out of 10 on a pain scale. Quality of pain is described as aching, Pain began 2 weeks ago Is continuous. Neuro: Level of Consciousness is awake, alert, obeys commands, Oriented to person, place, time, situation, Appropriate for age. Cardiovascular: Capillary refill < 3 seconds Patient's skin is warm and dry. Respiratory: Airway is patent Respiratory effort is even, unlabored, Respiratory pattern is regular, symmetrical. Musculoskeletal: Reports pain in neck and bilateral shoulders. 07/31 00:00 Reassessment: Patient appears in no apparent distress at this time. No changes from km8 previously documented assessment. Patient and/or family updated on plan of care and expected duration. Pain level reassessed. Patient is alert, oriented x 3, equal unlabored respirations, skin warm/dry/pink. General: Appears in no apparent distress. comfortable, Behavior is calm, cooperative, appropriate for age. Neuro: Level of Consciousness is awake, alert, obeys commands, Oriented to person, place, time, situation. Cardiovascular: Denies chest pain, Patient's skin is warm and dry. Respiratory: Airway is patent Respiratory effort is even, unlabored, Respiratory pattern is. Vital Signs: 07/30 21:40 BP 153 / 89; Pulse 120; Resp 18; Temp 98.3(O); Pulse Ox 98% on R/A; Weight 129.73 kg [facility] (R); Height 5 ft. 4 in. (R); Pain 10/10; 22:30 BP 148 / 84; Pulse 89; Resp 18; Pulse Ox 98% on R/A; km8 23:00 BP 159 / 102; Pulse 105; Resp 18; Pulse Ox 98% on R/A; [facility] 23:30 BP 137 / 96; Pulse 94; Resp 18; Pulse Ox 97% on R/A; [facility] 07/31 00:00 BP 147 / 99; Pulse 93; Resp 18; Pulse Ox 98% on R/A; [facility] 01:00 BP 162 / 89; Pulse 101; Resp 18; Pulse Ox 100% ; [facility] 02:00 BP 158 / 86; Pulse 82; Pulse Ox 100% on R/A; [facility] 07/30 21:40 Body Mass Index 49.09 (129.73 kg, 162.56 cm) [facility] 07/30 21:40 Pain Scale: Adult [facility] ED Course: 07/30 21:27 Patient arrived in ED. ag3 21:41 Triage completed. 8 21:41 Arm band placed on right wrist. 8 21:45 Haja Garza PA is PHCP. cp 21:45 Kirill Frias MD is Attending Physician. cp 22:04 Zehra Silva, HERNANDEZ is Primary Nurse. me1 22:07 Patient has correct armband on for positive identification. Bed in low position. Call ok1 light in reach. Side rails up X 1. Provided Education on: POC. Verbalized understanding. . 22:07 No provider procedures requiring assistance completed. me1 22:32 Inserted saline lock: 22 gauge in right antecubital area, using aseptic technique. me1 22:32 Basic Metabolic Panel Sent. me1 22:32 CBC with Diff Sent. me1 22:32 LFT's Sent. me1 22:32 Magnesium Sent. me1 22:32 NT PRO-BNP Sent. me1 22:33 PT-INR Sent. me1 22:33 Troponin HS Sent. me1 22:45 XRAY Chest (1 view) In Process Unspecified. EDMS 22:48 COVID-19 SARS RT PCR Sent. me1 22:48 Influenza Screen (a \T\ B) Sent. me1 07/31 00:01 CT Chest Wo Con In Process Unspecified. EDMS 01:31 Jose Maria Capps MD is Hospitalizing Provider. cp 03:22 Patient admitted, IV remains in place. km8 Administered Medications: 00:01 Drug: Furosemide IVP 40 mg IVP once; give over 2 minutes Route: IVP; Site: right ok1 antecubital; 01:48 Follow up: Response: No adverse reaction km8 02:45 Drug: Metoprolol PO 25 mg PO once Route: PO; jw7 03:04 Follow up: Response: No adverse reaction km8 Medication: 07/30 22:07 VIS not applicable for this client. ok1 Outcome: 07/31 01:32 Decision to Hospitalize by Provider. cp 03:24 Admitted to Med/surg accompanied by tech, family with patient, via wheelchair, room km8 225, with chart, Report called to HERNANDEZ Mondragon 03:24 Condition: stable 03:36 Patient left the ED. km8 Signatures: Dispatcher [employer] EDCA Haja Garza PA PA cp Gomez, Alice 3 Lizy Marquez RN RN jw7 Zehra Silva RN RN ok1 Evangelina Sandhu RN RN km8 Corrections: (The following items were deleted from the chart) 07/30 22:07 21:40 Chief complaint: Patient states: cough, congestion, and neck and shoulder pains ok1 for 2 weeks; denies fever km8
[2023-07-31] MEDS ORDERED: IPRATROPIUM BROM 0.5MG/2.5ML NEB PRN (01:43)
[2023-07-31] MEDS ORDERED: ONDANSETRON 4 MG/2 ML VIAL IV PRN (01:43)
[2023-07-31] MEDS ORDERED: ALBUTEROL 2.5 MG/3 ML NEB SOL NEB PRN (01:43)
[2023-07-31] MEDS ORDERED: METOPROLOL TAR 25 MG TAB ONE (02:24)
[2023-07-31 04:23] VITALS: BMI 49.1
[2023-07-31] MEDS ORDERED: FUROSEMIDE 20 MG/ 2ML VIAL IV SCH (09:00)
--- NOTE | 2023-07-31 12:30 | HP ---
Date of Admission: 07/31/2023 Chief Complaint: Cough and shortness of breath. History Of Present Illness: This is a 73-year-old pleasant female patient with multiple chronic prob lems who came into emergency room with almost 2 weeks history of increasing problem with shortness of breath and dry cough. Denies any expectoration. Denies any fever, chills, nausea, vomiting. She g ets short of breath with any day to day activity and lately in last 1-2 weeks, she is also having tro uble with shortness of breath at nighttime where she is requiring to use increased number of pillows while sleeping and has to wake up in middle of the night and get out of the bed and sit upright in or desmond for her to feel better. She came into emergency room with these complaints and after she was saud luated, she was admitted to the hospital. Allergies: PENICILLIN, CAUSING RASH. Medications: Allopurinol 300 mg daily, Eliquis 2.5 mg 2 times a day, carvedilol 25 mg 2 times a day, clonidine 0.2 mg 2 times a day, colchicine 0.6 mg 2 times a day as needed for gout, furosemide 40 mg takes 2 tablets 2 times a day, gabapentin 300 mg 2 times a day, hydralazine 50 mg and she takes half a tablet 2 times a day, losartan 100 mg daily, magnesium oxide 400 mg daily. Review of Systems: Cardiovascular: As mentioned above. Respiratory: As mentioned above. All other systems reviewed are negative. Past Medical History: Significant for allergic rhinitis; hypomagnesemia; anemia due to chronic kidne y disease; cervical spondylosis; osteoarthritis at multiple sites; paroxysmal atrial fibrillation; hy pertension; hyperlipidemia; chronic diastolic heart failure; chronic use of anticoagulation therapy; leg edema; impaired fasting glucose; morbid obesity; chronic kidney disease, stage 4; lumbar spinal s tenosis. Past Surgical History: Significant for hysterectomy. Family History: Father , had cerebral aneurysm and hypertension. Mother , had coronary alicia ry disease, diabetes, and hypertension. Social History: Negative for smoking. Use of alcohol occasional. Physical Examination: Vital Signs: This morning, temperature 98.1, pulse 88, respiratory rate 20, blood pressure 158/74, o xygen saturation 94%. Height 5 feet 4 inches, weight 286 pounds. General: Awake, alert, oriented, not in distress. HEENT: Head atraumatic, normocephalic. Conjunctivae nonerythematous. Sclerae white. Mouth, no thr ush or edema noted. Ears/Nose, no mass, lesion, discharge noted. Neck: Supple. No JVD, lymph nodes, bruit, thyromegaly noted. Lungs: Presence of some fine crackles noted in lower lung wallis. Not using accessory muscles of re spiration. Heart: Normal heart sounds, no murmur or gallop. Abdomen: Soft, bowel sounds normal. No guarding, rigidity, tenderness, mass, hepatosplenomegaly, dis tention, or bruit noted. Extremities: Trace leg edema. Skin: No rash, ulcer, cellulitis. Lymphatics: No lymph node enlargement in neck, supraclavicular, infraclavicular region. Neuro: No focal neurological deficit. Chest: Unremarkable. External Genitalia: Deferred. Rectal: Deferred. Laboratory Data: White count 8, hemoglobin 10.5, platelets 207. Sodium 137, potassium 4.3, chloride 105, bicarb 27, BUN 18, creatinine 0.58, glucose 128. Total bilirubin 1.3, direct bilirubin 0.5. R est of the liver function tests normal. Troponin 17.3 on the first set, second set is 16.4 and proBN P 4785. Chest x-ray shows prominent interstitial markings throughout the lung. No consolidation. C AT scan of the chest also shows similar findings. Impression: 1.Congestive heart failure, chronic, diastolic, with acute exacerbation. 2.Chronic kidney disease, stage 4. 3.Hypertension. 4.Impaired fasting glucose. 5.Hyperlipidemia. 6.Paroxysmal atrial fibrillation. 7.Chronic anticoagulation therapy. 8.Osteoarthritis, multiple sites. Plan: We will go ahead and admit the patient to hospital for further evaluation and management of th is problem. Patient is appropriate for inpatient and is expected to spend 2 midnights in hospital. We will go ahead and give her IV Lasix, which will be 40 mg IV 2 times a day. Monitor intake, output , daily weight and we will monitor electrolytes and renal function. For hypertension, we will contin ue her antihypertensive medications per order. Monitor blood pressure if necessary. Adjust antihype rtensive medication. I have advised the patient to take low-salt diet and avoid adding any extra cesar t to her food. Avoid eating outside and buy fresh food and cook at home. She is really not followin g low-salt diet as I understand by talking to her. For her paroxysmal atrial fibrillation, she is on Eliquis. We will continue that and I will provide her DVT prophylaxis as well. Chronic kidney dise ase, will not require any further intervention except monitoring at this point. Weight loss is stron gly recommended and I have been advising her for a long time. Unfortunately, she has not been able t o manage it on her own and recently semaglutide was prescribed to her, but apparently she is not taki ng it. RACHEL/MODL Voice ID: [id number]
[2023-07-31] MEDS: FUROSEMIDE 20 MG/ 2ML VIAL IV SCH (16:09)
[2023-07-31] MEDS ORDERED: GUAIFENESIN/DM 5 ML UCUP PO PRN (16:39)
--- NOTE | 2023-07-31 18:42 | RAD REPORT ---
EXAM DESCRIPTION: CT Chest Without Intravenous Contrast CLINICAL HISTORY: Back pain, shortness of breath TECHNIQUE: Axial computed tomography images of the chest without intravenous contrast. Sagittal an d coronal reformatted images were created and reviewed. This CT exam was performed using one or mor e of the following dose reduction techniques: automated exposure control, adjustment of the mA and/ or kV according to patient size, and/or use of iterative reconstruction technique. COMPARISON: CT Chest dated 05/03/2018 FINDINGS: Lungs: Mosaic attenuation within the lungs bilaterally. No mass. No consolidation. Pleural space: Trace right pleural effusion. No pneumothorax. Heart: The heart is mildly to moderately enlarged. Coronary artery calcification. No significant pericardial effusion. Mediastinum: Small hiatal hernia. Thyroid: Stable enlargement of the left thyroid. Bones/joints: Multilevel spondylosis. No acute fracture. No dislocation. Soft tissues: Unremarkable. Vasculature: Mild atherosclerotic disease. Lymph nodes: Unremarkable. No enlarged lymph nodes. Gallbladder and bile ducts: 2.5 cm gallstone. Pancreas: Mild pancreatic parenchymal atrophy. Adrenals: Stable left adrenal calcifications which can be seen in the setting of prior infection, i nflammation or hemorrhage. IMPRESSION: 1. Mosaic attenuation within the lungs bilaterally. Differential considerations incl ude small airways disease, small vessel disease and interstitial infiltrates. Trace right pleural e ffusion. 2. Other findings as above. Electronically signed by: Spring Robertson MD 07/31/2023 01:26 AM ASSISTANT FINANCE DIRECTOR Due to temporary technical issues with the PACS/Fluency reporting system, reports are being signed by the in house radiologists without review as a courtesy to insure prompt reporting. The interpreting radiologist is fully responsible for the content of the report.
--- NOTE | 2023-07-31 19:39 | RAD REPORT ---
EXAM DESCRIPTION: XR Chest, 1 View CLINICAL HISTORY: The patient is 73 years old and is Female; Congestion;Cough TECHNIQUE: Frontal view of the chest. COMPARISON: No relevant prior studies available. FINDINGS: LUNGS: Mild interstitial prominence is noted throughout the lungs. No consolidation. PLEURAL SPACE: Unremarkable. No pneumothorax. HEART: The cardiac silhouette is enlarged. MEDIASTINUM: Unremarkable. Normal mediastinal contour. BONES/JOINTS: Unremarkable. No acute fracture. VASCULATURE: Atherosclerosis of the aorta is present. UPPER ABDOMEN: Unremarkable as visualized. IMPRESSION: Findings suggest a mild edematous process. Electronically signed by: Nafisa Alaniz MD 07/31/2023 12:06 AM MORPHOLOGY TEACHER Due to temporary technical issues with the PACS/Fluency reporting system, reports are being signed by the in house radiologists without review as a courtesy to insure prompt reporting. The interpreting radiologist is fully responsible for the content of the report.
[2023-07-31] MEDS: COLCHICINE 0.6 MG TAB PO SCH (21:06)
[2023-07-31] MEDS: cloNIDine HCL 0.1 MG TAB PO SCH (21:06)
[2023-07-31] MEDS: GABAPENTIN 300 MG CAP PO SCH (21:06)
[2023-07-31] MEDS: carvediloL 25 MG TAB PO SCH (21:07)
[2023-07-31] MEDS: APIXABAN 2.5 MG TABLET PO SCH (21:07)
[2023-08-01 03:05] LABS: Absolute Lymphocytes (CBC) 2.5 K/uL (0.7-4.9); Hematocrit 29.7 % (36.0-45.0); Lymphocytes % 33.4 % (15.3-44.8); MCV 96.1 fL (80-100); MPV 9.1 fL (7.6-11.3); Platelets 205 thou/uL (152-406); RBC Red Blood Cell Count 3.09 M/uL (3.86-4.86)
[2023-08-01 03:33] LABS: Potassium 3.8 mEq/L (3.5-5.1)
[2023-08-01] MEDS: MAGNESIUM OXIDE 400 MG TAB PO SCH (09:00)
[2023-08-01] MEDS: COLCHICINE 0.6 MG TAB PO SCH ×2 (09:52→20:06)
[2023-08-01] MEDS: cloNIDine HCL 0.1 MG TAB PO SCH ×2 (09:52→20:06)
[2023-08-01] MEDS: GABAPENTIN 300 MG CAP PO SCH ×2 (09:53→20:06)
[2023-08-01] MEDS: carvediloL 25 MG TAB PO SCH ×2 (09:53→20:06)
[2023-08-01] MEDS: LOSARTAN POTASSIUM 50 MG TABLET PO SCH (09:53)
[2023-08-01] MEDS: FUROSEMIDE 20 MG/ 2ML VIAL IV SCH ×2 (09:54→18:41)
[2023-08-01] MEDS: APIXABAN 2.5 MG TABLET PO SCH ×2 (09:54→20:06)
[2023-08-01] MEDS: allopurinoL 300 MG TAB PO SCH (09:54)
[2023-08-01] MEDS ORDERED: POTASSIUM CL SA 10 MEQ TAB PO ONE (10:49)
[2023-08-01] MEDS ORDERED: LORATADINE 10 MG TAB PO ONE (10:49)
[2023-08-01] MEDS: METOLAZONE 5 MG TABLET PO SCH (12:42)
[2023-08-01] MEDS: FLUTICASONE 50MCG NASAL SPRAY NAS SCH ×2 (12:48→20:05)
--- NOTE | 2023-08-01 13:48 | PN ---
Date of Progress Note: 08/01/2023 Subjective: Patient was seen this morning for followup of any chest pain, nausea, vomiting. She was complaining of watery eyes and nasal congestion and some dry cough. She is getting some cough medic ation. Her cough was worse during nighttime as she reports. Objective: Vital Signs: Reviewed. HEENT: Unremarkable. Lungs: Bilateral good equal air entry. Clear to auscultation. Not using accessory muscles of respi ration. Heart: Sounds normal. Abdomen: Soft. Bowel sounds normal. No guarding, rigidity, tenderness, or distention. Extremities: Bilateral trace leg edema. Laboratory Data: White count 7.5, hemoglobin 9.9, platelets 205, sodium 139, potassium 3.8, chloride 106, bicarb 28, BUN 25, creatinine 1.67, glucose 99, proBNP 2511. Impression: 1.Congestive heart failure. 2.Allergic rhinitis. 3.Hypertension. 4.Chronic kidney disease stage 4. Plan: We will go ahead and continue IV Lasix. Patient did ambulate today in the hallway with her [facility] and she did get short of breath with ambulation, but she was able to walk all over the floor on ce, but she did get short of breath as she reports and overall that actually has improved compared to before. Plan is to continue current IV Lasix. We will repeat blood work tomorrow morning. Get an echo with Doppler tomorrow and today I will give 1 dose of metolazone 2.5 mg x1 dose and give Clariti n 10 mg p.o. x1 dose and start her on fluticasone nasal spray 1 spray each nostril 2 times a day. I will see her tomorrow for followup. Possible discharged to go home tomorrow. Details were discussed with the patient and her . She sees her Cooling Tower Technician, Dr. Parrish, on a regular basis for her chronic kidney disease on an outpatient basis and she will continue to do so. RACHEL/MODL Voice ID: [id number] Report ID: [id number]
[2023-08-02 03:56] LABS: Magnesium 2.3 mg/dL (1.6-2.4); Potassium 3.9 mEq/L (3.5-5.1)
[2023-08-02] MEDS: cloNIDine HCL 0.1 MG TAB PO SCH (09:00)
[2023-08-02] MEDS: FLUTICASONE 50MCG NASAL SPRAY NAS SCH (09:00)
[2023-08-02] MEDS: MAGNESIUM OXIDE 400 MG TAB PO SCH (09:00)
[2023-08-02 09:23] VITALS: O2SAT 98
[2023-08-02] MEDS: COLCHICINE 0.6 MG TAB PO SCH (09:29)
[2023-08-02] MEDS: GABAPENTIN 300 MG CAP PO SCH (09:29)
[2023-08-02] MEDS: FUROSEMIDE 20 MG/ 2ML VIAL IV SCH (09:29)
[2023-08-02] MEDS: allopurinoL 300 MG TAB PO SCH (09:29)
[2023-08-02] MEDS: APIXABAN 2.5 MG TABLET PO SCH (09:30)
[2023-08-02] MEDS: carvediloL 25 MG TAB PO SCH (10:06)
[2023-08-02] MEDS: LOSARTAN POTASSIUM 50 MG TABLET PO SCH (10:07)
[2023-08-02] MEDS: METOLAZONE 5 MG TABLET PO SCH (11:00)
[2023-08-02 13:09] VITALS: BP 125/76; TEMP 98.2
--- NOTE | 2023-08-02 13:41 | ECHO ---
HEIGHT: 5 ft 4 in WEIGHT: 277 lb 12.8 oz DATE OF STUDY: 08/02/[address]: Jordan Capps MD 2-DIMENSIONAL: YES M.MODE: YES DOPPLER: YES COLOR FLOW: YES TDS: PORTABLE: YES DEFINITY: BUBBLE STUDY: DIAGNOSIS: CONGESTIVE HEART FAILURE CARDIAC HISTORY: CATHERIZATION: SURGERY: PROSTHETIC VALVE: PACEMAKER: MEASUREMENTS (cm) DIASTOLIC (NORMALS) SYSTOLIC (NORMALS) IVSd 1.2 (0.6-1.2) LA Diam 4.4 (1.9-4.0) LVEF 63% LVIDd 3.8 (3.5-5.7) LVIDs 2.5 (2.0-3.5) %FS 33% LVPWd 1.3 (0.6-1.2) Ao Diam 2.9 (2.0-3.7) 2 DIMENSIONAL ASSESSMENT: RIGHT ATRIUM: NORMAL LEFT ATRIUM: ENLARGED RIGHT VENTRICLE: NORMAL LEFT VENTRICLE: LEFT VENTRICULAR HYPERTROPHY TRICUSPID VALVE: MILD TRICUSPID REGURGITATION MITRAL VALVE: MILD MITRAL REGURGITATION PULMONIC VALVE: MILD PULMONIC INSUFFICIENCY AORTIC VALVE: NORMAL PERICARDIAL EFFUSION: TRADE AORTIC ROOT: NORMAL LEFT VENTRICULAR WALL MOTION: NORMAL DOPPLER/COLOR FLOW: SEE BELOW COMMENTS: 1. NORMAL LEFT VENTRICULAR EJECTION FRACTION 60-65% WITH NORMAL WALL MOTION 2. MILD CONCENTRIC LEFT VENTRICULAR HYPERTROPHY 3. MODERATE DIASTOLIC DYSFUNCTION 4. LEFT ATRIAL ENLARGEMENT 5. MILD MITRAL REGURGITATION, TRICUSPID REGURGITATION, PULMONIC INSUFFICIENCY TECHNOLOGIST: RENNY DALAL
--- NOTE | 2023-08-02 13:44 | DS ---
Date of Discharge: 08/02/2023 Disposition: Discharged to go home. Physical Examination: HEENT: Unremarkable. Lungs: Clear to auscultation. Heart: Sounds normal. Abdomen: Soft. Bowel sounds normal. No guarding, rigidity, tenderness, distention. Extremities: No leg edema. Laboratory Data: Upon admission on July 30, 2023, white count 8, hemoglobin 10.5, platelets 207. Yesterday, white count 7.5, hemoglobin 9.9, platelets 205. Chemistry upon admission on July 30, 2023, sodium 137, potassium 4.3, chloride 105, bicarb 27, BUN 18, creatinine 1.58, glucose 128, total bilirubin 1.3, direct bilirubin 0.5, AST 15, ALT 19, alkaline phosphatase 119. ProBNP 4785. Yester day proBNP was 2511. Chemistry today sodium 137, potassium 3.9, chloride 104, bicarb 28, BUN 31, cre atinine 1.82, glucose 101, magnesium 2.3. Yesterday, creatinine was 1.67. Final Diagnoses: 1.Congestive heart failure, chronic, diastolic, with acute exacerbation. 2.Chronic kidney disease, stage IV. 3.Hypertension. 4.Anemia due to chronic kidney disease. 5.Impaired fasting glucose. 6.Hyperlipidemia. 7.Paroxysmal atrial fibrillation. 8.Chronic anticoagulation therapy. 9.Osteoarthritis, multiple sites. Hospital Course: This is a 73-year-old pleasant female patient admitted to the hospital with complai nts of cough and shortness of breath. Please see dictated H and P for more information. After brionna holcomb was evaluated in the emergency room, she was admitted to the hospital for acute exacerbation of co ngestive heart failure. The patient takes her medication regularly at home. While in the hospital, she was given IV diuretic therapy, which was Lasix 40 mg IV 2 times a day and she responded well to t hat. She has lost about 9 pounds since the time of admission until today with this diuretic therapy. Yesterday 1 dose of metolazone 2.5 mg p.o. was given to her. The patient is ambulating well. She has noted that her shortness of breath with activity has improved and, in fact, today she was able to ambulate 3 times in the hallway without having to stop and after she came back to room, she was slig htly short of breath, but nothing compared to how it was before she came into the hospital. So overa ll, the patient's condition has improved. Echocardiogram was ordered, which will be done today and a fter the test is done, we will discharge her to go home and I will follow up on the result. Discharge Medications And Instructions: Continue all prior home medication except stop hydralazine. Check your blood pressure before taking dose of clonidine every morning and every evening and take y our clonidine dose only if systolic blood pressure is higher than 140 and start metolazone 2.5 mg pierce e 1 tablet by mouth every 2 weeks starting August 15, 2023. Follow up at my office next week. I person ve gone over all this discharge instruction personally with the patient and explained it to her as we ll as her . RACHEL/PATRICIO Voice ID: [id number] Report ID: [id number]
--- NOTE | 2023-08-09 17:24 | EKG ---
Test Date: 2023-07-30 Test Time: 22:54:44 Red Leader: ALVINO MEASUREMENT RESULTS: Intervals: Rate: 108 [place]: QRSD: 78 QT: 300 QTc: 402 [place]: P: [place]: QRS: 4 T: 47 INTERPRETIVE STATEMENTS: Atrial fibrillation with rapid ventricular response Low voltage QRS Cannot rule out Anterior infarct, age undetermined Abnormal ECG Compared to ECG 06/17/2020 14:53:23 Low QRS voltage now present Myocardial infarct finding now present Electronically Signed On 08-09-23 17:01:22 KETTLE ROOM HELPER by Tristan Whitman
== END 2023-08-02 12:45 | disposition home or self-care (01) | DRG 291 ==
LOC: ER 21:23 → 2ND 07-31 02:48
PROVIDERS: ADMIT Internal Medicine; ATTEND Internal Medicine
DX: I13.0 Hypertensive heart and chronic kidney disease with heart failure and stage 1 through stage 4 chronic kidney disease, or unspecified chronic kidney disease (principal); I50.33 Acute on chronic diastolic (congestive) heart failure; N18.4 Chronic kidney disease, stage 4 (severe); D63.1 Anemia in chronic kidney disease; I48.0 Paroxysmal atrial fibrillation; E78.5 Hyperlipidemia, unspecified; M19.09 Primary osteoarthritis, other specified site; J30.9 Allergic rhinitis, unspecified; R06.01 Orthopnea; R73.01 Impaired fasting glucose; Z88.0 Allergy status to penicillin; Z86.73 Personal history of transient ischemic attack (TIA), and cerebral infarction without residual deficits; Z79.01 Long term (current) use of anticoagulants; Z79.02 Long term (current) use of antithrombotics/antiplatelets; Z79.899 Other long term (current) drug therapy; Z90.710 Acquired absence of both cervix and uterus
CPT/HCPCS: 36415; 71045; 71250; 80048; 80076; 83735; 83880; 84484; 85025; 85610; 87635; 87804; 93005; 93306; 96374; 99285; J1940

== ENCOUNTER 2024-02-28 10:56 | Emergency (ER) | payer OTHER ==
--- OUTSIDE RECORDS SUMMARY | 2024-02-28 10:58 | XMS REPORT | Continuity of Care Document ---
Author Name Unknown Address [address] [facility] [address] [place] [address] [facility] thconnect Address [address] [facility] [address] [place] [address] Care Team Providers Care Pot Press Operator Name Role Phone Bernardo Rubio Attending Clinician Unavailable Zuly Attending Clinician Unavail able [id number]_Kadiyala_S Attending Clinician Unavaila ble Bernardo Rubio Admitting Clinician Unavailable Zuly Admitting Clinician Unavail able [email or web address]_Kadiyala_S Admitting Clinician Unavaila ble Payers Payer Name Policy Type Policy Number Effective Date Expirati on Date Source [employer] (MEDICARE REPLACEMENT/ADVANTAGE - PPO) [id number] [facility] (MEDICARE REPLACEMENT/ADVANTAGE - PPO) [id number] Problems Condition Name Condition Details Condition Category Status Onset Date Resolution Date Last Treatment Date Treating Clinician Comments Source Tendinitis of right wrist region Tendinitis of Right Wrist Region Problem Active 01-10 00:00: 00 [facility] Osteoarthr itis of first carpometac arpal joint of right hand Osteoarthr itis of First Carpometac arpal Joint of Right Hand Problem Active 3-04 00:00: 00 [facility] Pain in right hand Pain in Right Hand Problem Active - 00:00: 00 [facility] 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 Osteoarthr osis of the Carpometac arpal Joint of the Thumb Problem Active 2021-07 00:00: 00 [facility] Acquired trigger finger of left index finger Acquired Trigger Finger of Left Index Finger Problem Active 2021-07 00:00: 00 [facility] Trigger thumb of left hand Trigger Thumb of Left Hand Problem Active 2021-07 00:00: 00 [facility] Carpal tunnel syndrome of right wrist Carpal Tunnel Syndrome of Right Wrist Problem Active 2021-07 00:00: 00 [facility] Disorder of synovial membrane Disorder of Synovial Membrane Problem Active 02-09 00:00: 00 [facility] [...] Penicill ins DA Active MO RASHES; ITCHING 3 00:00: 00 [facility] Penicill ins DA Active MO RASHES; ITCHING 08-18 00:00: 00 [facility] Penicill ins DA Active [place] 02-24 00:00: 00 [facility] Penicill ins DA Active MO RASHES 02-24 00:00: 00 [facility] No Known Drug Allergie s DA Active U 02-09 00:00: 00 [facility] Penicill ins DA Active [place] 02-09 00:00: 00 [facility] PENICILL IN Allergy to substanc e Active 2014-07 0 00:00: 00 [facility] [...] mg tablet RX by other MD [facility] magnesium oxide 400 mg (241.3 mg magnesium) tablet TAKE 1 TABLET BY MOUTH ONCE DAILY magnesium oxide 400 mg (241.3 mg magnesium) tablet TAKE 1 TABLET BY MOUTH ONCE DAILY 10-11 00:00: 00 No magnesium oxide 400 mg (241.3 mg magnesium) tablet TAKE 1 TABLET BY MOUTH ONCE DAILY [facility] acetaminoph en 300 mg-codeine 30 mg tablet TAKE 1 TABLET BY MOUTH EVERY 6 HOURS NEEDED acetaminoph en 300 mg-codeine 30 mg tablet TAKE 1 TABLET BY MOUTH EVERY 6 HOURS NEEDED No acetaminop hen 300 mg-codeine 30 mg tablet TAKE 1 TABLET BY MOUTH EVERY 6 HOURS NEEDED [facility] allopurinol 300 mg tablet TAKE 1 TABLET BY MOUTH ONCE DAILY allopurinol 300 mg tablet TAKE 1 TABLET BY MOUTH ONCE DAILY No allopurino l 300 mg tablet TAKE 1 TABLET BY MOUTH ONCE DAILY [facility] amlodipine 2.5 mg tablet RX by other amlodipine 2.5 mg tablet RX by other No amlodipine 2.5 mg tablet RX by other MD [facility] betamethaso ne dipropionat e 0.05 % topical cream APPLY TO RASH ON TRUNK AND EXTREMITIES TWICE A DAY FOR 2 WEEKS PER MONTH betamethaso ne dipropionat e 0.05 % topical cream APPLY TO RASH ON TRUNK AND EXTREMITIES TWICE A DAY FOR 2 WEEKS PER MONTH No betamethas one dipropiona te 0.05 % topical cream APPLY TO RASH ON TRUNK AND EXTREMITIE S TWICE A DAY FOR 2 WEEKS PER MONTH [facility] calcitriol 0.25 mcg capsule calcitriol 0.25 mcg capsule No calcitriol 0.25 mcg capsule [facility] carvedilol 25 mg tablet TAKE 1 TABLET BY MOUTH TWICE DAILY carvedilol 25 mg tablet TAKE 1 TABLET BY MOUTH TWICE DAILY No carvedilol 25 mg tablet TAKE 1 TABLET BY MOUTH TWICE [facility] cephalexin 500 mg capsule TAKE 1 CAPSULE BY MOUTH TWICE DAILY cephalexin 500 mg capsule TAKE 1 CAPSULE BY MOUTH TWICE DAILY No cephalexin 500 mg capsule TAKE 1 CAPSULE BY MOUTH TWICE DAILY [facility] clindamycin HCl 150 mg capsule TAKE 1 CAPSULE BY MOUTH EVERY 6 HOURS clindamycin HCl 150 mg capsule TAKE 1 CAPSULE BY MOUTH EVERY 6 HOURS No clindamyci n HCl 150 mg capsule TAKE 1 CAPSULE BY MOUTH EVERY 6 HOURS [facility] clonidine HCl 0.1 mg tablet RX by other clonidine HCl 0.1 mg tablet RX by other No clonidine HCl 0.1 mg tablet RX by other MD [facility] clonidine HCl 0.2 mg tablet TAKE 1 TABLET BY MOUTH TWICE DAILY clonidine HCl 0.2 mg tablet TAKE 1 TABLET BY MOUTH TWICE DAILY No clonidine HCl 0.2 mg tablet TAKE 1 TABLET BY MOUTH TWICE DAILY [facility] colchicine 0.6 mg tablet TAKE 1 TABLET BY MOUTH TWICE DAILY NEEDED FOR GOUT colchicine 0.6 mg tablet TAKE 1 TABLET BY MOUTH TWICE DAILY NEEDED FOR GOUT No colchicine 0.6 mg tablet TAKE 1 TABLET BY MOUTH TWICE DAILY NEEDED FOR GOUT [facility] cyclobenzap [...] NEEDED [facility] Eliquis 2.5 mg tablet Eliquis 2.5 mg tablet No Eliquis 2.5 mg tablet [facility] ergocalcife rol (vitamin D2) 1,250 mcg (50,000 unit) capsule ergocalcife rol (vitamin D2) 1,250 mcg (50,000 unit) capsule No ergocalcif dinorah (vitamin D2) 1,250 mcg (50,000 unit) capsule [facility] furosemide [...] DAILY [facility] hydrocodone 5 mg-acetamin ophen 325 mg tablet Take 1 tablet every 6 hours by oral route as needed. hydrocodone 5 mg-acetamin ophen 325 mg tablet Take 1 tablet every 6 hours by oral route as needed. No hydrocodon e 5 mg-acetami nophen 325 mg tablet Take 1 tablet every 6 hours by oral route as needed. [facility] losartan [...] MD [facility] metolazone 2.5 mg tablet metolazone 2.5 mg tablet No metolazone 2.5 mg tablet [facility] prednisone [...] TAKE 1 TABLET BY MOUTH ONCE DAILY sotalol 80 mg tablet TAKE 1 TABLET BY MOUTH ONCE DAILY No sotalol 80 mg tablet TAKE 1 TABLET BY MOUTH ONCE DAILY [facility] triamcinolo ne acetonide 0.1 % topical ointment triamcinolo ne acetonide 0.1 % topical ointment No triamcinol one acetonide 0.1 % topical ointment [facility] Xarelto 15 mg tablet TAKE 1 TABLET BY MOUTH ONCE DAILY Xarelto 15 mg tablet TAKE 1 TABLET BY MOUTH ONCE DAILY No Xarelto 15 mg tablet TAKE 1 TABLET BY MOUTH ONCE DAILY [facility] benzonatate 100 mg capsule TAKE 1 CAPSULE BY MOUTH 4 TIMES DAILY NEEDED FOR COUGH benzonatate 100 mg capsule TAKE 1 CAPSULE BY MOUTH 4 TIMES DAILY NEEDED FOR COUGH No benzonatat e 100 mg capsule TAKE 1 CAPSULE BY MOUTH 4 TIMES DAILY NEEDED FOR COUGH [facility] cefuroxime axetil 250 mg tablet TAKE 1 TABLET BY MOUTH TWICE DAILY cefuroxime axetil 250 mg tablet TAKE 1 TABLET BY MOUTH TWICE DAILY No cefuroxime axetil 250 mg tablet TAKE 1 TABLET BY MOUTH TWICE DAILY [facility] Kerendia 10 mg tablet TAKE 1 TABLET BY MOUTH ONCE DAILY Kerendia 10 mg tablet TAKE 1 TABLET BY MOUTH ONCE DAILY No Kerendia 10 mg tablet TAKE 1 TABLET BY MOUTH ONCE DAILY [facility] meloxicam 15 mg tablet TAKE 1 TABLET BY MOUTH ONCE DAILY meloxicam 15 mg tablet TAKE 1 TABLET BY MOUTH ONCE DAILY No meloxicam 15 mg tablet TAKE 1 TABLET BY MOUTH ONCE DAILY [facility] Vital Signs Vital Name Observation Time Observation Value Comments S ource Height 2024-01-11 00:00:00 64 [in_i] [facility] Body Weight 2024-01-11 00:00:00 290 [lb_av] [facility] BMI (Body Mass Index) 2024-01-11 00:00:00 49.8 kg/m2 [facility] BMI (Body Mass Index) 2023-10-08 00:00:00 49.8 kg/m2 [facility] Body Weight 2023-10-08 00:00:00 290 [lb_av] [facility] Height 2023-10-08 00:00:00 64 [in_i] [facility] Body Weight 2023-09-20 00:00:00 290 [lb_av] [facility] Height 2023-09-20 00:00:00 64 [in_i] [facility] BMI (Body Mass Index) 2023-09-20 00:00:00 49.8 kg/m2 [facility] Height 2022-09-09 00:00:00 64 [in_i] [facility] BMI (Body Mass Index) 2022-09-09 00:00:00 49.8 kg/m2 [facility] Body Weight 2022-09-09 00:00:00 290 [lb_av] [facility] Height 2022-04-30 00:00:00 64 [in_i] [facility] BMI (Body Mass Index) 2022-04-30 00:00:00 49.8 kg/m2 [facility] Body Weight 2022-04-30 00:00:00 290 [lb_av] [facility] Procedures Procedure Date / Time Performed Performing Clinicia n Source XR, hand, 3 or more view 2023-09-20 00:00:00 [facility] XR, hand, 3 or more view 2022-04-30 00:00:00 [facility] Encounters Start Date/Time End Date/Time Encounter Type Admission Type Attending Clinicians Care Facility Care Department Encounter ID Source 2022-08-18 13:00:00 Inpatient Bernardo Guillen [facility] SURG [id number] [facility] 2024-01-11 00:00:00 2024-01-11 00:00:00 Bernardo Rubio MD: [address] [place] [address] , Ph. [phone] [facility] [place] [id number] [facility] 2023-10-19 00:00:00 2023-10-19 00:00:00 Outpatient Geovany Hamlin [place] [id number] [facility] 2023-10-08 00:00:00 2023-10-08 00:00:00 Bernardo Rubio MD: [address] [place] [address] , Ph. [phone] LOCATED [facility]IN [facility] - [facility] - F[facility]_Ofc [place] [id number] [facility] 2023-10-07 00:00:00 2023-10-07 00:00:00 Outpatient DANIELLE_Jose Luis Hamlin [facility] [id number] [facility] 2023-10-01 06:12:00 2023-10-01 06:12:00 Outpatient Bernadro Guillen [facility] [id number] [facility] 2023-10-01 00:00:00 2023-10-01 00:00:00 Bernardo Rubio MD: [address] [place] [address] , Ph. [phone] [place] - [facility] - [facility]_Surgery [id number] [facility] 2023-10-01 00:00:00 2023-10-01 00:00:00 Bernardo Rubio MD: [address] [place] [address] , Ph. [phone] [place] - [facility] - F[facility]_Surgery [id number] [facility] 2023-09-29 00:00:00 2023-09-29 00:00:00 Outpatient [facility]Jose Luis [facility] [id number] [facility] 2023-09-20 00:00:00 2023-09-20 00:00:00 Bernardo Rubio MD: [address] [place] [address] , Ph. [phone] [place] - [facility] - [facility]Of[facility] [place] [id number] [facility] 2023-09-20 00:00:00 2023-09-20 00:00:00 Bernardo Rubio MD: [address] [place] [address] , Ph. [phone] [place] - [facility] - [facility]Of[facility] [place] [id number] [facility] 2023-09-17 00:00:00 2023-09-17 00:00:00 Outpatient DANIELLE_Jose Luis Hamlin [facility] [id number] [facility] 2023-05-15 00:00:00 2023-05-15 00:00:00 Outpatient GC_GCBZW_Jaden lagunasa_S PRIV PRIV [id number] [facility] 2023-05-14 00:00:00 2023-05-14 00:00:00 Outpatient GC_GCBZW_Ka diyala_S [facility] PRIV [id number] [facility] 2022-09-10 00:00:00 2022-09-10 00:00:00 Outpatient FOG_Jose Luis Hamlin AO AO [id number] [facility] 2022-09-09 00:00:00 2022-09-09 00:00:00 Bernardo Rubio MD: [address] [place] [id number] , Ph. [phone] [facility] [place] - [facility]Ofc [facility] [id number] [facility] 2022-08-26 05:54:00 2022-08-26 05:54:00 Outpatient Bernardo Guillen [facility] [id number] [address] [place] [address] [facility] 2022-08-26 00:00:00 2022-08-26 00:00:00 Bernardo Rubio MD: [address] [place] [id number] , Ph. [phone] [facility] [place] - [facility] - [facility]_Surgery [id number] [facility] 2022-08-11 00:00:00 2022-08-11 00:00:00 Outpatient FOG_Jose Luis Hamlin AO AO [id number] [facility] 2022-08-11 00:00:00 2022-08-11 00:00:00 Outpatient FOG_Jose Luis Hamlin [facility] [place] [id number] [facility] 2022-08-11 00:00:00 2022-08-11 00:00:00 Outpatient FOG_Jose Luis Hamlin [facility] [place] [id number] [facility] 2022-08-11 00:00:00 2022-08-11 00:00:00 Outpatient FOG_Jose Luis Hamlin [facility] AO [id number] [facility] 2022-04-30 08:00:00 2022-04-30 09:00:00 Outpatient EM Bernardo Rubio [facility] [id number] [facility] [place] [facility] 2022-04-30 00:00:00 2022-04-30 00:00:00 Outpatient DANIELLE_Jose Luis Hamlin [facility] [place] [id number] [facility] 2022-04-30 00:00:00 2022-04-30 00:00:00 Bernardo Rubio MD: [address] [place] [id number] , [facility] [phone] [facility] [id number] 2022-04-28 00:00:00 2022-04-28 00:00:00 Outpatient DANIELLE_Jose Luis Hamlin [facility] AO [id number] [facility] 2022-01-08 00:00:00 2022-01-08 00:00:00 Outpatient Geovany Hamlin AO AO [id number] [facility] Notes Date/Time Note Provider Source 2023-10-01 07:38:00 [facility] ([facility]) DT Operative Note REPORT#:[id number] REPORT STATUS: Signed REPORT INITIALIZATION DATE:10/01/23 TIME: 737 PATIENT: TERRI AUSTIN UNIT #: [id number] ROOM/BED: : 50 AGE: 73 SEX: F ATTEND: Bernardo Rubio MD ADM AUTHOR: Bernardo Rubio MD REPT SERVICE DT/TIME: 10/01/23737 * ALL edits or amendments must be made on the electronic/computer document * Operative Report Operative Note Note: DATE OF SERVICE: 10/01/23 PREOPERATIVE DIAGNOSIS: right symptomatic first carpometacarpal joint arthritis POSTOPERATIVE DIAGNOSIS: right symptomatic first carpometacarpal joint arthritis OPERATION PERFORMED: 1. right trapeziectomy and interposition arthroplasty of CMC joint with free palmaris longus autograft IMPLANTS: none SURGEON: Bernardo Rubio MD OLD TESTAMENT PROFESSOR SURGEON: Lance Slaughter NEED FOR OLD TESTAMENT PROFESSOR: The skilled assistance of Lance Slaughter PA-C was necessary during this case. He assisted with every aspect of the operation including, but not limited to, proper and safe positioning of the patient, obtaining adequate surgical exposure, retraction of the radial artery and the flexor carpi radialis , the continual process of hemostasis during the procedure, and surgical wound closure and removal of the patient from the operating table and returning the [facility]. His assistance allowed me to perform the most sensitive and technical portions of this operation using 2 hands, thus enhancing patient safety. This would not be possible without the help of a skilled urgent care physician assistant familiar with the procedure and capable of safely performing the aforementioned tasks. Our facility is not a teaching hospital, and as such, no surgical residents or interns were available to assist. ANESTHESIA: Regional and general COMPLICATIONS: None. ESTIMATED BLOOD LOSS: trace TOURNIQUET TIME: 30 minutes at 250 mmHg FINDINGS: 1. CMC joint : denuded cartilage 2. Scaphotrapezial joint : intact cartilage 3. Scaphotrapezoid joint: intact cartilage INDICATIONS: The patient is a 73 year old female with right thumb CMC arthritis that has been recalcitrant to conservative treatment options. Patient wishes to proceed with CMC arthroplasty to relieve pain. Risks, benefits, and alternatives to the procedure were discussed with the patient in detail preoperatively. Risks include, but not limited to, infection, damage to blood vessels or nerves, stiffness of fingers, thumb, and wrist, and need for further surgery. Patient verbalized understanding of these risk and consented to proceed. ? OPERATIVE NOTE: Patient was identified in the preoperative holding area and the correct surgical site was marked. Patient was then brought to the Operating Room where a formal time-out was performed to confirm the correct patient, site, and planned operation. Monitored anesthesia care was provided by the anesthesia team. A well-padded tourniquet was placed on the upper arm. Patient was then prepped and draped in the usual sterile fashion. Preoperative prophylactic antibiotics was given. The arm was then exsanguinated, and tourniquet inflated. I began with a 2-cm dorsal incision centered over the trapezium, just on the dorsal side of the extensor pollicis brevis, extending from the base of the metacarpal to the proximal end of the trapezium. Sharp dissection was carried down through skin and subcutaneous tissues. The extensor pollicis brevis was identified and brought volarly. Branches of the dorsal radial sensory nerve was identified and retracted and protected throughout the case. The dorsal branch of the radial artery was then identified and elevated and protected away from the trapezium. A 15-blade was then used to incise the capsule overlying the trapezium and CMC joint between the extensor pollicis brevis and abductor pollicis longus. The capsule of the joint was then carefully peeled back using a knife. A knife was then used to walk around the four sides of the trapezium with the idea of releasing the ligamentous/capsular attachments from the bone. Using a freer elevator I confirmed the joint spaces between the scaphoid/trapezium and between the metacarpal/trapezium. I then used an extra-large rongeur to place this on either side of the trapezium and gently twisted back and forth to release the deep ligaments connecting it to the trapezoid. The trapezium was then able to be excised in multiple pieces. There were a few osteophytes as well as remaining bits of trapezium that were removed with a large rongeur. I visualized the FCR and it was completely intact. At this point, all the bony debris had been removed from the space. At this point, I used a tendon harvester to harvest the palmaris longus tendon. I then made a loop with the free palmaris and placed it around both the FCR and APL. The free end of the loop was placed into the loop as to make a purse string around the FCR/APL tendons. The palmaris was then tied to itself using 0 Ethibond suture. The free ends were then wrapped around once more and tied again. The patient has a stable metacarpal without any subsidence. Radiographic evaluation was performed and there was no pistoning under live fluoroscopy. Next, the capsule over the CMC joint was closed with Vicryl suture and the radial artery was not kinked under the capsular repair. The skin incisions were closed with 4-0 Monocryl suture. The patient was placed into a thumb spica splint and tourniquet was deflated. The patient had excellent perfusion of the fingers after deflation of the tourniquet. All sponge, needle, and instrument counts were correct at the end of the procedure. at 1354 [facility] #:[id number] END OF REPORT [facility] 2022-08-26 08:09:00 [facility] ([facility]) DT Operative Note REPORT#:[id number] REPORT STATUS: Signed DATE:08/26/22 TIME: 808 PATIENT: TERRI AUSTIN UNIT #: [id number] ROOM/BED: : 50 AGE: 72 SEX: F ATTEND: Bernardo Rubio MD ADM AUTHOR: Bernardo Rubio MD * ALL edits or amendments must be made on the electronic/computer document * Operative Report Operative Note Note: DATE OF SERVICE: 08/26/22 PREOPERATIVE DIAGNOSIS: 1. left index trigger finger 2. left trigger thumb POSTOPERATIVE DIAGNOSIS: 1. left index trigger finger 2. left trigger thumb OPERATION PERFORMED: 1. left index finger A1 yoseph release 2. left trigger thumb release SURGEON: Bernardo Rubio MD OLD TESTAMENT PROFESSOR SURGEON: ANESTHESIA: general COMPLICATIONS: None. ESTIMATED BLOOD LOSS: Minimal TOURNIQUET TIME: 10 minutes at 250 mmHg SPECIMENS: None FINDINGS: Complete release of the A1 yoseph. INDICATIONS: This is a 72 year old female with left thumb and left index finger trigger finger. Patient wishes to proceed with surgical release. Risks, benefits , and alternatives to the procedure were discussed with the patient in detail preoperatively. Risks include, but not limited to, infection, damage to blood vessels or nerves, stiffness of fingers, and need for further surgery. Patient verbalized understanding of these risk and consented to proceed. OPERATIVE NOTE: Patient was identified in the preoperative holding area and the correct surgical site was marked. Patient was then brought to the Operating Room where a formal time-out was performed to confirm [...] The hand was then exsanguinated and tourniquet inflated. We began w/ the index finger. An approximately 2 cm longitudinal incision was made over the A1 yoseph. Careful dissection down to the yoseph was made and incised using a knife. Complete resection was ensured using tenotomy scissors. At this time, the patient could make a full fist and had full passive extension. There was good excursion of the tendon. We turned our attention to the thumb. An approximately 2 cm transverse incision was made over the A1 yoseph. Careful dissection down to the yoseph was made and incised using a knife. Complete resection was ensured using tenotomy scissors. At this time, the patient had full passive extension. There was good excursion of the tendon. At this time, the skin was closed using 4.0 nylon. Sterile dressing 4 x 4 gauze, gauze dressing and KARLO wrap were then applied. The tourniquet was then deflated. All sponge, needle and instrument counts were correct at the end of the procedure. The hand had excellent perfusion at the end of the procedure. Patient was then transferred to the recovery room in stable condition. at 0813 RPT #:[id number] END OF REPORT [facility] 2022-04-30 11:28:00 [id number] [place] [address] PATIENT NAME: TERRI AUSTIN ADMIT DATE: ACCOUNT NO: [id number] ROOM NO: AGE: 72 REPORT TYPE: ELECTROCARDIOGRAM SEX: F ADMITTING PHYSICIAN: ATTENDING PHYSICIAN:Bernardo Rubio MD Order: [id number] Test Reason : PRE-OP CLEARANCE HTN Test Date/Time Stamp: WedApr 30 2022 11:28:47 Blood Pressure : / mmHG Vent. Rate : 088 BPM Atrial Rate : 000 BPM P-R Int : 000 ms QRS Dur : 088 ms QT Int : 368 ms P-R-T Axes : 000 -06 057 degrees QTc Int : 445 ms Atrial fibrillation Low voltage QRS Cannot rule out Anterior infarct , age undetermined Abnormal ECG No previous ECGs available Confirmed by SURENDRA KENDRICK MD ([id number]) on 05/03/2022 10:06:41 AM Referred By: Bernardo Rubio Confirmed by:SURENDRA KENDRICK MD PATIENT NAME: TERRI AUSTIN [facility] 2019-02-24 14:20:00 [id number] [place] [id number] PATIENT NAME: TERRI AUSTIN ADMIT DATE: 02/24/19 ACCOUNT NO: [id number] ROOM NO: AGE: 68 REPORT TYPE: OPERATIVE REPORT SEX: F ADMITTING PHYSICIAN: ATTENDING PHYSICIAN:Kulwant Amaya MD OPERATION DATE: 02/24/2019 PREOPERATIVE DIAGNOSES: 1. Right index finger trigger. 2. Right index finger flexor tendosynovitis. 3. Right thumb basilar joint arthritis, grade III. POSTOPERATIVE DIAGNOSES: 1. Right index finger trigger. 2. Right index finger flexor tendosynovitis. 3. Right thumb basilar joint arthritis, grade III. PROCEDURES PERFORMED: 1. Right index finger trigger annular yoseph release. 2. Right index finger flexor tendinosis synovectomy. 3. Right thumb metacarpotrapezial joint steroid injection. SURGEON: Kulwant Amaya MD OLD TESTAMENT PROFESSOR: ANESTHESIA: IV sedation, [place] [facility] Section, 1% lidocaine metacarpal block 10 mL index finger, right hand performed by Dr. Leanna Amaya. INDICATION: A 68-year-old black female with triggering and pain in her right index finger for trigger release, tenolysis and indicated procedures. The patient also has painful base of thumb joint arthritis, grade III per x-ray accompanying the patient, for steroid injection. PROCEDURE IN DETAIL: After satisfactory IV sedation, the right index finger was administered 10 mL of 1% lidocaine metacarpal block. The right hand and wrist were then prepped and draped in the usual orthopedic fashion. All dissection was performed under 2-1/2 power magnification. Hand was exsanguinated and the tourniquet was inflated to 225 mmHg. Oblique incision was made along the distal palmar crease at the base of the right index finger, dissected down through skin and subcutaneous tissue. Neurovascular bundles were protected. Bleeding controlled with Bovie cautery. Markedly thickened annular yoseph was present and and the A1 annular yoseph was released. Traction lysis of the flexor tendons and synovectomy performed on the index and sublimis profundus tendon. There was good excursion of the tendons. Wounds were irrigated with saline and PATIENT NAME: TERRI AUSTIN Bacitracin. A 0.25% Marcaine, epinephrine, and Kenalog solution placed along the flexor tendinosis and skin closed with 4-0 nylon mattress sutures. Bulky compression dressing and Karlo wrap was applied. Under Fluoroscan control, the right thumb CMC joint was injected with 0.25% Marcaine, epinephrine, and Kenalog solution 3 mL. The patient tolerated all procedures well and returned to recovery room in satisfactory condition. Dictated By: Kulwant Amaya MD WT: OP:KARLEE/JENNIFER/FILI Conf#: [id number]/DID#: [id number] Authenticated and Edited by Kulwant Amaya MD On 03/06/19 7:50:03 AM at 0752 PATIENT NAME: TERRI AUSTIN [facility]
--- NOTE | 2024-02-28 11:56 | RAD REPORT ---
EXAM DESCRIPTION: CT - Head Brain Wo Cont - 02/28/2024 11:43 am CLINICAL HISTORY: DIZZINESS COMPARISON: HEAD BRAIN W O CONTRAST dated 01/29/2015; HEAD BRAIN W O CONTRAST dated 12/02/2011 TECHNIQUE: All CT scans are performed using dose optimization technique as appropriate and may inclu de automated exposure control or mA/KV adjustment according to patient size. FINDINGS: No intracranial hemorrhage, hydrocephalus or extra-axial fluid collection.No areas of brai n edema or evidence of midline shift. Remote right frontal lobe and left parietal cortical infarcts. The paranasal sinuses and mastoids are clear. The calvarium is intact. IMPRESSION: No acute intracranial abnormality.
--- NOTE | 2024-02-28 12:13 | RAD REPORT ---
EXAM DESCRIPTION: RAD - Chest Single View - 02/28/2024 11:56 am CLINICAL HISTORY: weakness COMPARISON: Chest Single View dated 01/31/2024; Chest Pa And Lat (2 Views) dated 12/01/2023; Chest Sin gle View dated 07/30/2023; Chest Single View dated 05/24/2021 FINDINGS: Lines: None. Lungs: Mild increased prominence of the pulmonary interstitium. Hazy basilar predominant opacities. Pleural: No significant pleural effusions or pneumothorax. Cardiac: Cardiomegaly. Mediastinum: Within normal limits. Bones: No acute fractures. Other: None IMPRESSION: Question mild pulmonary edema. Hazy opacities bilaterally could be accentuated by under penetration.
[2024-02-28 12:15] LABS: Absolute Eosinophils 0.1 K/uL (0-0.5); Absolute Lymphocytes (CBC) 2.4 K/uL (0.7-4.9); Absolute Monocytes 0.8 K/uL (0.1-1.3); Absolute Neutrophil 2.1 K/uL (1.8-8.0); Basophils % 0.4 % (0-1.3); Eosinophils % 2.5 % (0-4.4); Hematocrit 35.1 % (36.0-45.0); Hemoglobin 11.3 g/dL (12.0-15.0); Lymphocytes % 43.5 % (15.3-44.8); MCH 32.2 pg (27.0-35.0); MCHC 32.2 g/dL (32.0-36.0); MCV 100.2 fL (80-100); MPV 8.5 fL (7.6-11.3); Neutrophils % 38.6 % (41.7-73.7); Platelets 196 thou/uL (152-406); Red Cell Distribution Width 17.2 % (12.1-15.2)
[2024-02-28 12:18] LABS: PT Prothrombin Time 13.8 SECONDS (9.4-12.5); Protime INR 1.24
[2024-02-28 12:47] LABS: Albumin 3.5 g/dL (3.4-5.0); Albumin/Globulin Ratio 0.9 (1.1-1.8); Bilirubin Direct 0.2 mg/dL (0-0.2); Bilirubin Indirect, Calculated 0.3 mg/dL (0.2-0.8); Bilirubin Total 0.5 mg/dL (0.2-1.0); Magnesium 2.2 mg/dL (1.6-2.4); Protein, Total 7.5 g/dL (6.4-8.2); Troponin High Sensitivity 10.3 pg/mL (<58.9)
--- NOTE | 2024-02-28 13:43 | EKG ---
Test Date: 2024-02-28 Test Time: 12:09:20 Scanner Operator: STAN[place]ORD MEASUREMENT RESULTS: Intervals: Rate: 70 WA: QRSD: 102 QT: 410 QTc: 442 [place]: P: WA: QRS: -20 T: 60 INTERPRETIVE STATEMENTS: Atrial fibrillation Low voltage QRS Abnormal ECG Compared to ECG 01/31/2024 21:18:00 Low QRS voltage now present Electronically Signed On 02-28-24 13:42:57 CDT by Tristan Whitman
[2024-02-28] MEDS ORDERED: NA CHLORIDE 0.9% 250 ML ONE (13:44)
[2024-02-28 14:07] LABS: Specific Gravity 1.012 (1.005-1.030); Urine Bacteria None Seen /HPF (<20); Urine Bilirubin NEGATIVE (Negative); Urine Blood Negative (Negative); Urine Clarity Turbid (Clear); Urine Color Light-Yellow (Yellow); Urine Culture Reflex Order NOT NEEDED; Urine Glucose NEGATIVE (Negative); Urine Ketones NEGATIVE (Negative); Urine Micro Reflex YN NO BILL MICROSCOPIC; Urine Mucus Slight /HPF (None Seen); Urine Nitrite NEGATIVE (Negative); Urine Protein NEGATIVE (Negative); Urine RBC <5 /HPF (None Seen); Urine Urobilinogen Normal (Normal); Urine WBC <5 /HPF (<5)
--- NOTE | 2024-02-28 15:11 | EDPHYS ---
Physician Documentation [facility] Name: Michelle Hadley Age: 73 yrs Sex: Female : 1950 Arrival Date: 02/28/2024 Time: 10:56 Bed 18 Private MD: ED Physician Jerardo Manzo HPI: 02/27 11:30 This 73 yrs old Black Female presents to ER via Wheelchair with complaints of cp Dizziness, Weakness. 11:30 The patient presents with dizziness, lightheadedness. Onset: The symptoms/episode cp began/occurred this morning. Context: occurred at home, occurred while the patient was standing, just prior to the episode the patient experienced no apparent symptoms. Associated signs and symptoms: Pertinent positives: general weakness, low blood pressure with systolic pressure in the 80's, Pertinent negatives: abdominal pain, chest pain, focal weakness, palpitations, syncope. Patient's baseline: Neuro: alert and fully oriented, Speech: normal, The patient has a previous history of CVA. Historical: - Allergies: 11:11 PENICILLINS; aa5 - PMHx: 11:11 Atrial Fib; CVA; Hypertension; TIA; aa5 - PSHx: 11:11 Total abdominal hysterectomy; aa5 - Immunization history:: Adult Immunizations unknown. - Infectious Disease History:: Denies. - Social history:: Smoking status: Patient denies any tobacco usage or history of. ROS: 11:35 Constitutional: Negative for body aches, chills, fever, poor PO intake, cp 11:35 Eyes: Negative for injury, pain, redness, and discharge, cp 11:35 ENT: Negative for drainage from ear(s), ear pain, sore throat, difficulty swallowing, difficulty handling secretions, 11:35 Cardiovascular: Positive for edema, Negative for chest pain, palpitations, 11:35 Respiratory: Negative for cough, shortness of breath, wheezing, 11:35 Abdomen/GI: Negative for abdominal pain, vomiting, diarrhea, constipation, 11:35 : Negative for urinary symptoms, 11:35 Neuro: Positive for dizziness, weakness, Negative for altered mental status, headache, numbness, syncope, 11:35 All other systems are negative, Exam: 11:40 Constitutional: The patient appears in no acute distress, alert, awake, cp non-diaphoretic, non-toxic, well developed, well nourished, obese, 11:40 Head/Face: Normocephalic, atraumatic. cp 11:40 Eyes: Periorbital structures: appear normal, Pupils: equal, round, and reactive to light and accomodation, Extraocular movements: intact throughout, Conjunctiva: normal, no exudate, no injection, Sclera: no appreciated abnormality, Lids and lashes: appear normal, bilaterally, 11:40 ENT: External ear(s): are unremarkable, Nose: is normal, Mouth: Lips: moist, Oral mucosa: pink and intact, moist, Posterior pharynx: is normal, airway is patent, no erythema, no exudate, 11:40 Neck: ROM/movement: is normal, is supple, without pain, no range of motions limitations, 11:40 Chest/axilla: Inspection: normal, 11:40 Cardiovascular: Rate: normal, Rhythm: irregular, Edema: ankle edema, that is mild, JVD: is not appreciated, 11:40 Respiratory: the patient does not display signs of respiratory distress, Respirations: normal, no use of accessory muscles, no retractions, labored breathing, is not present, Breath sounds: are clear throughout, no decreased breath sounds, no stridor, no wheezing, 11:40 Abdomen/GI: Inspection: abdomen appears normal, Palpation: abdomen is soft and non-tender, in all quadrants, 11:40 Back: pain, is absent, ROM is normal, 11:40 Neuro: Orientation: to person, place \T\ time. Mentation: is normal, Motor: moves all fours, 12:15 ECG was reviewed by the Attending Physician. cp Vital Signs: 11:12 BP 123 / 55; Pulse 85; Resp 18 S; Temp 97.5(TE); Pulse Ox 99% on R/A; Weight 122.47 kg aa5 (R); Height 5 ft. 4 in. (R); 11:21 BP 123 / 55; Pulse 76; Resp 18; Temp 98; Pulse Ox 100% on R/A; kj2 12:19 BP 125 / 82; Pulse 80; Resp 14; Pulse Ox 100% on R/A; kj2 13:27 BP 135 / 70 Supine; Pulse 69; Pulse Ox 99% on R/A; cc6 13:30 BP 133 / 84 Sitting; Pulse 69; Pulse Ox 100% on R/A; cc6 13:30 BP 141 / 69 Standing; Pulse 69; Pulse Ox 100% on R/A; cc6 15:21 BP 135 / 88; Pulse 66; Resp 18; Temp 98; Pulse Ox 100% on R/A; kj2 11:12 Body Mass Index 46.34 (122.47 kg, 162.56 cm) aa5 MDM: 11:13 Patient medically screened. cp 12:00 Differential diagnosis: cardiac arrhythmia, CVA, GI bleed, hypovolemia, idiopathic cp dizziness, sepsis, syncope, TIA, uti. 14:11 ED course: left msg on voicemail of DR Parrish. cp 15:07 ED course: spoke with DR Capps who will see patient in clinic tomorrow for f/u. Wants cp patient to hold daily Losartan tonight and bring all medications to appointment tomorrow. 15:10 Data reviewed: vital signs, nurses notes, lab test result(s), EKG, radiologic studies, cp CT scan, plain films, and as a result, I will discharge patient. 15:10 Management of patient was discussed with the following: Primary Care Provider: DR Capps. cp Care significantly affected by the following chronic conditions: Hypertension, Obesity. Counseling: I had a detailed discussion with the patient and/or guardian regarding the historical points, exam findings, and any diagnostic results supporting the discharge/admit diagnosis, lab results, radiology results, to return to the emergency department if symptoms worsen or persist or if there are any questions or concerns that arise at home. 02/27 11:26 Order name: Urinalysis W/Microscopic; Complete Time: 14:10 cp 02/27 14:10 Interpretation: Normal except: UCLA Turbid; HYAL 10-20. cp 02/27 11:26 Order name: Basic Metabolic Panel; Complete Time: 12:54 cp 02/27 12:54 Interpretation: Normal except: GLUC 59; BUN 57; CRE 2.80; GFR 17; CA 10.3. cp 02/27 11:26 Order name: CBC with Diff; Complete Time: 12:24 cp 02/27 12:55 Interpretation: Normal except: RBC 3.50; HGB 11.3; HCT 35.1; MCV 100.2; RDW 17.2; ROWDY% cp 38.6; MN% 15.0. 08/12 11:26 Order name: LFT's; Complete Time: 12:54 cp 02/27 11:26 Order name: Magnesium; Complete Time: 12:54 cp 02/27 11:26 Order name: NT PRO-BNP; Complete Time: 12:54 cp 02/27 11:26 Order name: PT-INR; Complete Time: 12:24 cp 02/27 11:26 Order name: Troponin HS; Complete Time: 12:54 cp 02/27 11:26 Order name: XRAY Chest (1 view); Complete Time: 12:24 cp 02/27 11:26 Order name: CT Head Brain wo Cont; Complete Time: 12:24 cp 02/27 12:25 Interpretation: Report reviewed. cp 02/27 11:26 Order name: Cardiac monitoring; Complete Time: 12:10 cp 02/27 11:26 Order name: EKG - Nurse/Tech; Complete Time: 12:10 cp 02/27 11:26 Order name: IV Saline Lock; Complete Time: 12:10 cp 02/27 11:26 Order name: Labs collected and sent; Complete Time: 12:10 cp 02/27 11:26 Order name: O2 Per Protocol; Complete Time: 12:10 cp 02/27 11:26 Order name: O2 Sat Monitoring; Complete Time: 12:10 cp 02/27 11:32 Order name: Orthostatics; Complete Time: 13:54 cp 02/27 12:58 Order name: PO challenge: sandwich; Complete Time: 13:42 cp EC:15 Rate is 70 beats/min. Rhythm is irregular. QRS interval is prolonged at 102 msec. QT cp interval is normal. T waves are Inverted in leads aVL, aVR. Interpreted by me. Reviewed by me. Administered Medications: 13:47 Drug: NS 0.9% IV 250 ml IV at bolus once Route: IV; Rate: bolus; Site: right nj1 antecubital; 15:22 Follow up: IV Status: Completed infusion; IV Intake: 1000ml kj2 Disposition: 17:49 Co-signature as Attending Physician, Jerardo Manzo MD I reviewed the patient's care rn provided by the Advanced Practice Provider and agree with the diagnosis and treatment plan. Disposition Summary: 02/28/24 15:10 Discharge Ordered Notes: Location: Home cp Problem: new cp Symptoms: have improved cp Condition: Stable cp Diagnosis - Dizziness and giddiness cp - Weakness cp Followup: cp - With: Jose Maria Capps MD - When: Tomorrow - Reason: Recheck today's complaints Discharge Instructions: - Discharge Summary Sheet cp - Dizziness cp - Weakness cp Forms: - Medication Reconciliation Form cp - Antibiotic Education cp - Prescription Opioid Use cp - Patient Portal Instructions cp - Leadership Thank You Letter cp Signatures: Dispatcher [employer] EDMS Jerardo Manzo MD MD rn Calderon, Audri, RN RN aa5 Haja Garza PA PA cp Carina Vigil RN RN nj1 Soni Cardozo RN kj2 Corrections: (The following items were deleted from the chart) 11: 11:27 Urinalysis W/Microscopic+U.LAB.BRZ ordered. EDMS EDMS 11 11:27 BASIC METABOLIC PANEL+C.LAB.BRZ ordered. EDMS EDMS 11 11:27 CBC+H.LAB.BRZ ordered. EDMS EDMS 11: 11:27 HEPATIC FUNCTION+C.LAB.BRZ ordered. EDMS EDMS 11 11:27 MAGNESIUM+C.LAB.BRZ ordered. EDMS EDMS 11: 11:27 PROBNP+C.LAB.BRZ ordered. EDMS EDMS 11: 11:27 PROTIME (+INR)+COAG.LAB.BRZ ordered. EDMS EDMS 11: 11:27 Troponin High Sensitivity+C.LAB.BRZ ordered. EDMS EDMS 11: 11:27 Chest Single View+RAD.RAD.BRZ ordered. EDMS EDMS 11: 11:27 Head Brain Wo Cont+CT.RAD.BRZ ordered. EDMS EDMS 13:53 11:27 Urinalysis+U.LAB.BRZ ordered. EDMS EDMS 02/28 11:41 11:40 Differential diagnosis: cardiac arrhythmia, CVA, GI bleed, hypovolemia, cp idiopathic dizziness, sepsis, syncope, TIA, uti, cp
--- NOTE | 2024-02-28 15:11 | ER ---
Nurse's Notes [facility] Name: Michelle Hadley Age: 73 yrs Sex: Female : 1950 Arrival Date: 02/28/2024 Time: 10:56 Bed 18 Private MD: Diagnosis: Dizziness and giddiness;Weakness Presentation: 02/27 11:12 Risk Assessment: Do you want to hurt yourself or someone else? Patient reports no aa5 desire to harm self or others. 11:12 Method Of Arrival: Wheelchair aa5 11:12 Acuity: DOROTHY 3 aa5 11:12 Chief complaint: Patient states: woke up dizzy and weak today, also reports slight aa5 diarrhea. Coronavirus screen: diarrhea. Ebola Screen: Patient denies travel to an Ebola-affected area in the 21 days before illness onset. Initial Sepsis Screen: Does the patient meet any 2 criteria? No. Patient's initial sepsis screen is negative. Does the patient have a suspected source of infection? No. Patient's initial sepsis screen is negative. Onset of symptoms was February 28, 2024. Historical: - Allergies: 11:11 PENICILLINS; aa5 - PMHx: 11:11 Atrial Fib; CVA; Hypertension; TIA; aa5 - PSHx: 11:11 Total abdominal hysterectomy; aa5 - Immunization history:: Adult Immunizations unknown. - Infectious Disease History:: Denies. - Social history:: Smoking status: Patient denies any tobacco usage or history of. Screenin:22 [facility] ED Fall Risk Assessment (Adult) History of falling in the last 3 months, kj2 including since admission No falls in past 3 months (0 pts) Confusion or Disorientation No (0 pts) Intoxicated or Sedated No (0 pts) Impaired Gait No (0 pts) Mobility Assist Device Used No (0 pt) Altered Elimination Yes (1 pt) Score/Fall Risk Level 0 - 2 = Low Risk Maintained a safe environment, Hourly rounding (assess needs \T\ fall precautionary measures) done. Abuse screen: Denies threats or abuse. Denies injuries from another. Nutritional screening: No deficits noted. Tuberculosis screening: No symptoms or risk factors identified. Assessment: 11:20 General: Appears in no apparent distress. Behavior is calm, cooperative. Pain: Denies kj2 pain. Neuro: Level of Consciousness is awake, alert, obeys commands, Oriented to person, place, time, situation. Cardiovascular: Patient's skin is warm and dry. Respiratory: Airway is patent Respiratory effort is unlabored. GI: No deficits noted. : Reports incontinence. 12:10 Reassessment: Patient appears in no apparent distress at this time. Patient and/or kj2 family updated on plan of care and expected duration. Pain level reassessed. Patient is alert, oriented x 3, equal unlabored respirations, skin warm/dry/pink. 13:08 Reassessment: Patient appears in no apparent distress at this time. Patient and/or kj2 family updated on plan of care and expected duration. Pain level reassessed. Patient is alert, oriented x 3, equal unlabored respirations, skin warm/dry/pink. 14:18 Reassessment: Patient appears in no apparent distress at this time. Patient and/or kj2 family updated on plan of care and expected duration. Pain level reassessed. Patient is alert, oriented x 3, equal unlabored respirations, skin warm/dry/pink. Vital Signs: 11:12 BP 123 / 55; Pulse 85; Resp 18 S; Temp 97.5(TE); Pulse Ox 99% on R/A; Weight 122.47 kg aa5 (R); Height 5 ft. 4 in. (R); 11:21 BP 123 / 55; Pulse 76; Resp 18; Temp 98; Pulse Ox 100% on R/A; kj2 12:19 BP 125 / 82; Pulse 80; Resp 14; Pulse Ox 100% on R/A; kj2 13:27 BP 135 / 70 Supine; Pulse 69; Pulse Ox 99% on R/A; cc6 13:30 BP 133 / 84 Sitting; Pulse 69; Pulse Ox 100% on R/A; cc6 13:30 BP 141 / 69 Standing; Pulse 69; Pulse Ox 100% on R/A; cc6 15:21 BP 135 / 88; Pulse 66; Resp 18; Temp 98; Pulse Ox 100% on R/A; kj2 11:12 Body Mass Index 46.34 (122.47 kg, 162.56 cm) aa5 ED Course: 11:02 Patient arrived in ED. aa5 11:07 Soni Cardozo, RN is Primary Nurse. kj2 11:11 Arm band placed on Patient placed in an exam room, on a stretcher. aa5 11:12 Triage completed. aa5 11:13 Haja Garza PA is PHCP. cp 11:13 Jerardo Manzo MD is Attending Physician. cp 11:23 Patient has correct armband on for positive identification. Bed in low position. Call kj2 light in reach. Adult w/ patient. Provided Education on: call light, fall precautions. 11:45 CT Head Brain wo Cont In Process Unspecified. EDMS 11:58 XRAY Chest (1 view) In Process Unspecified. EDMS 12:11 Inserted saline lock: 20 gauge in right antecubital area, using aseptic technique. kj2 Blood collected. Flushed with 10 mL NS. 12:11 No provider procedures requiring assistance completed. kj2 12:33 EKG done, by ED staff, reviewed by Haja RUTHERFORD. cc6 15:10 Jose Maria Capps MD is Referral Physician. cp 15:23 IV discontinued, intact, bleeding controlled, No redness/swelling at site. Pressure kj2 dressing applied. Administered Medications: 13:47 Drug: NS 0.9% IV 250 ml IV at bolus once Route: IV; Rate: bolus; Site: right nj1 antecubital; 15:22 Follow up: IV Status: Completed infusion; IV Intake: 1000ml kj2 Medication: 11:23 VIS not applicable for this client. kj2 Intake: 15:22 IV: 1000ml; Total: 1000ml. kj2 Outcome: 15:10 Discharge ordered by MD. cp 15:21 Discharged to kj2 15:23 Condition: stable kj2 15:23 Discharge instructions given to patient, family, Instructed on discharge instructions, follow up and referral plans. Demonstrated understanding of instructions, follow-up care, 15:24 Patient left the ED. kj2 Signatures: Dispatcher [employer] EDMS Alyce Parks RN RN aa5 Haja Garza PA PA cp Carina Vigil RN RN nj1 Soni Cardozo RN RN kj2 Ro Tapia RN RN cc6
[2024-02-28 15:50] VITALS: TEMP 98
[2024-02-28 15:52] VITALS: O2SAT 100
[2024-02-28 15:54] VITALS: BP 135/88
== END 2024-02-28 15:24 | disposition home or self-care (01) ==
LOC: ER 10:56
DX: R42 Dizziness and giddiness (principal); R53.1 Weakness; Z86.73 Personal history of transient ischemic attack (TIA), and cerebral infarction without residual deficits; I10 Essential (primary) hypertension
CPT/HCPCS: 96365; 93005; 85025; 81001; 80048; 36415; 83735; 85610; 80076; 84484; 83880; 70450; 71045; 99284; 96366; J7050

== ENCOUNTER 2024-09-03 09:28 | Emergency (ER) | payer OTHER ==
--- OUTSIDE RECORDS SUMMARY | 2024-09-03 09:31 | XMS REPORT | Continuity of Care Document ---
Author Name Unknown Address [address] [place] [address] Luis. [address] [place] [address] [facility] thconnect Address [address] [facility] 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 Name Role Phone Bernardo Rubio Attending Clinician Unavailable Zuly Attending Clinician Unavail able GC_GCBZW_Kadiyala_S Attending Clinician Unavaila ble Bernardo Rubio Admitting Clinician Unavailable Zuly Admitting Clinician Unavail able GC_GCBZW_Kadiyala_S Admitting Clinician Unavaila ble Payers Payer Name Policy Type Policy Number Effective Date Expirati on Date Source [employer] (MEDICARE REPLACEMENT/ADVANTAGE - PPO) [id number] [facility] (MEDICARE REPLACEMENT/ADVANTAGE - PPO) [id number] Problems Condition Name Condition Details Condition Category Status Onset Date Resolution Date Last Treatment Date Treating Clinician Comments Source Tendinitis of right wrist region Tendinitis of Right Wrist Region Problem Active - 00:00: 00 [facility] Osteoarthr itis of first carpometac arpal joint of right hand Osteoarthr itis of First Carpometac arpal Joint of Right Hand Problem Active 3-04 00:00: 00 [facility] Pain in right hand Pain in Right Hand Problem Active 2- 00:00: 00 [facility] [...] Active MO RASHES; ITCHING 3 00:00: 00 [facility] Penicill ins DA Active MO RASHES; ITCHING 08-18 00:00: 00 [facility] Penicill ins DA Active [place] 8 00:00: 00 [facility] Penicill ins DA Active MO RASHES 02-24 00:00: 00 [facility] No Known Drug Allergie s DA Active U 02-09 00:00: 00 [facility] Penicill ins DA Active [place] 02-09 00:00: 00 [facility] PENICILL IN [...] 1 TABLET BY MOUTH ONCE DAILY [facility] amlodipine 2.5 mg tablet RX by other amlodipine 2.5 mg tablet RX by other No amlodipine 2.5 mg tablet RX by other MD [facility] betamethaso ne dipropionat [...] A DAY FOR 2 WEEKS PER MONTH [facility] calcitriol 0.25 mcg capsule calcitriol 0.25 mcg capsule No calcitriol 0.25 mcg capsule [facility] carvedilol 25 mg tablet TAKE 1 TABLET BY MOUTH TWICE DAILY carvedilol 25 mg tablet TAKE 1 TABLET BY MOUTH TWICE DAILY No carvedilol 25 mg tablet TAKE 1 TABLET BY MOUTH TWICE DAILY [facility] cephalexin 500 mg capsule TAKE 1 CAPSULE BY MOUTH TWICE DAILY cephalexin 500 mg capsule TAKE 1 CAPSULE BY MOUTH TWICE DAILY No cephalexin 500 mg capsule TAKE 1 CAPSULE BY MOUTH TWICE DAILY [facility] clindamycin HCl 150 mg capsule TAKE 1 CAPSULE BY MOUTH EVERY 6 HOURS clindamycin HCl 150 mg capsule TAKE 1 CAPSULE BY MOUTH EVERY 6 HOURS No clindamyci n HCl 150 mg capsule TAKE 1 CAPSULE BY MOUTH EVERY 6 HOURS [facility] clonidine HCl 0.1 mg tablet RX by other clonidine HCl 0.1 mg tablet RX by other No clonidine HCl 0.1 mg tablet RX by other MD [facility] clonidine HCl 0.2 [...] ID Source 2022-08-18 13:00:00 [id number] [facility] 2024-01-11 00:00:00 2024-01-11 00:00:00 Bernardo Rubio MD: [address] [place] [address] , Ph. [phone] [facility] - [place] [id number] [facility] 2023-10-19 00:00:00 2023-10-19 00:00:00 Outpatient DANIELLE_Jose Luis Hamlin [facility] [id number] [facility] 2023-10-08 00:00:00 2023-10-08 00:00:00 Bernardo Rubio MD: [address] [place] [address] , Ph. [phone] [facility] - [facility] [id number] [facility] 2023-10-07 00:00:00 2023-10-07 00:00:00 Outpatient DANIELLE_Jose Luis Hamlin [facility] [id number] [facility] 2023-10-01 06:12:00 2023-10-01 06:12:00 Outpatient Bernardo Guillen [facility] [id number] 28 [facility] 2023-10-01 00:00:00 2023-10-01 00:00:00 Bernardo Rubio MD: [address] [place] [address] , Ph. [phone] [place] - [facility] [id number] [facility] 2023-10-01 00:00:00 2023-10-01 00:00:00 Bernardo Rubio MD: [address] [place] [address] , Ph. [phone] [place] - [facility] [id number] [facility] 2023-09-29 00:00:00 2023-09-29 00:00:00 [facility] [id number] [facility] 2023-09-20 00:00:00 2023-09-20 00:00:00 Bernardo Rubio MD: [address] [place] [address] , Ph. [phone] [place] - [facility] [place] [id number] [facility] 2023-09-20 00:00:00 2023-09-20 00:00:00 Bernardo Rubio MD: [address] [place] [address] , Ph. [phone] [place] - [facility] [place] [id number] [facility] 2023-09-17 00:00:00 2023-09-17 00:00:00 Outpatient DANIELLE_Jose Luis Hamlin AO AO [id number] [facility] 2023-05-15 00:00:00 2023-05-15 00:00:00 Outpatient GC_GCBZW_Jaden darnell_S [facility] [id number] [facility] 2023-05-14 00:00:00 2023-05-14 00:00:00 Outpatient GC_GCBZW_Ka diyala_S [facility] [id number] [facility] 2022-09-10 00:00:00 2022-09-10 00:00:00 Outpatient FOG_Jose Luis Hamlin AO AO [id number] [facility] 2022-09-09 00:00:00 2022-09-09 00:00:00 Bernardo Rubio MD: [address] [place], [place] [id number] , Ph. [phone] [facility] [place] - [facility] [id number] [facility] 2022-08-26 05:54:00 2022-08-26 05:54:00 Outpatient Bernardo Guillen [facility] [id number] [address] [place] [address] [facility] 2022-08-26 00:00:00 2022-08-26 00:00:00 Bernardo Rubio MD: [address] [place] [id number] , Ph. [phone] [facility] [place] - [facility]Surgery [id number] [facility] 2022-08-11 00:00:00 2022-08-11 00:00:00 Outpatient FOG_Jose Luis Hamlin AO AO [id number] [facility] 2022-08-11 00:00:00 2022-08-11 00:00:00 Outpatient FOG_Jose Luis Hamlin AO AO [id number] [facility] 2022-08-11 00:00:00 2022-08-11 00:00:00 Outpatient FOG_Jose Luis Hamlin AOSM AO [id number] [facility] 2022-08-11 00:00:00 2022-08-11 00:00:00 Outpatient FOG_Jose Luis Hamlin AOSM AO [id number] [facility] 2022-04-30 08:00:00 2022-04-30 09:00:00 Outpatient EM Bernardo Rubio [facility] [id number] [facility] 2022-04-30 00:00:00 2022-04-30 00:00:00 Outpatient DANIELLE_Jose Luis Hamlin AOSM AO [id number] [facility] 2022-04-30 00:00:00 2022-04-30 00:00:00 Bernardo Rubio MD: [address] [place] [id number] , Ph. [phone] [facility] [id number] [facility] 2022-04-28 00:00:00 2022-04-28 00:00:00 Outpatient Geovany Hamlin AO AO [id number] [facility] 2022-01-08 00:00:00 2022-01-08 00:00:00 Outpatient Geovany Hamlin AO AO [id number] [facility] Notes Date/Time Note Provider Source 2023-10-01 07:38:00 [facility] ([facility] DT Operative Note REPORT#:[id number] REPORT STATUS: Signed REPORT INITIALIZATION DATE:10/01/23 TIME: 737 PATIENT: TERRI AUSTIN UNIT #: [id number] ROOM/BED: : 50 AGE: 73 SEX: F [...] autograft IMPLANTS: none SURGEON: Bernardo Rubio MD DANCING INSTRUCTOR SURGEON: Lance Slaughter NEED FOR DANCING INSTRUCTOR: The skilled assistance of Lance Slaughter PA-C [...] and returning the patient back to the [facility]. His assistance allowed me to perform the most sensitive and technical portions of this operation using 2 hands, thus enhancing patient safety. This would not be possible without the help of a skilled assistant baseball coach familiar with the procedure and capable of [...] the end of the procedure. at [address] [facility] #:[id number] END OF REPORT [facility] 2022-08-26 08:09:00 [facility] ([facility]) DT Operative Note REPORT#:[id number] REPORT STATUS: Signed DATE:08/26/22 TIME: 808 PATIENT: TERRI AUSTIN UNIT #: [id number] ROOM/BED: : 50 AGE: 72 SEX: F [...] trigger thumb release SURGEON: Bernardo Rubio MD DANCING INSTRUCTOR SURGEON: ANESTHESIA: general COMPLICATIONS: None. ESTIMATED BLOOD [...] recovery room in stable condition. at [address] [facility] #:[id number] END OF REPORT [facility] 2022-04-30 11:28:00 [id number] [place] [address] PATIENT NAME: TERRI AUSTIN ADMIT DATE: ACCOUNT NO: [id number] ROOM NO: AGE: 72 REPORT TYPE: ELECTROCARDIOGRAM SEX: F ADMITTING PHYSICIAN: ATTENDING PHYSICIAN:Bernardo Rubio MD Order: [id number] Test Reason : PRE-OP CLEARANCE HTN Test [...] ECGs available Confirmed by SURENDRA KENDRICK MD ([id number]) on 05/03/2022 10:06:41 AM Referred By: Bernardo Rubio Confirmed by:SURENDRA KENDRICK MD PATIENT NAME: TERRI AUSTIN [facility] 2019-02-24 14:20:00 [id number] [place] [address] PATIENT NAME: TERRI AUSTIN ADMIT DATE: 02/24/19 ACCOUNT NO: [id number] ROOM NO: AGE: 68 REPORT TYPE: OPERATIVE [...] joint steroid injection. SURGEON: Kulwant Amaya MD DANCING INSTRUCTOR: ANESTHESIA: IV sedation, [facility] Section, 1% lidocaine metacarpal block [...] By: Kulwant Amaya MD WT: OP:KARLEE/JENNIFER/FILI Conf#: [id number]/DID#: [id number] Authenticated and Edited by Kulwant Amaya MD On 03/06/19 7:50:03 AM at 0752 PATIENT NAME: TERRI AUSTIN [facility]
--- NOTE | 2024-09-03 11:21 | ER ---
Nurse's Notes [facility] Name: Michelle Hadley Age: 74 yrs Sex: Female : 1950 Arrival Date: 09/03/2024 Time: 09:28 Bed 11 Private MD: Diagnosis: Rash and other nonspecific skin eruption;Candidal stomatitis Presentation: 09/03 09:38 Chief complaint: Diffuse rash and blisters on mouth x 1 week. hb 09:58 Coronavirus screen: At this time, the client does not indicate any symptoms associated hb with coronavirus-19. Ebola Screen: No symptoms or risks identified at this time. Initial Sepsis Screen: Does the patient meet any 2 criteria? No. Patient's initial sepsis screen is negative. Does the patient have a suspected source of infection? No. Patient's initial sepsis screen is negative. Risk Assessment: Do you want to hurt yourself or someone else? Patient reports no desire to harm self or others. Onset of symptoms was August 27, 2024. 09:58 Method Of Arrival: Ambulatory hb 09:58 Acuity: DOROTHY 4 hb Triage Assessment: 09:40 General: Appears in no apparent distress. Behavior is calm, cooperative. Pain: Pain hb currently is 3 out of 10 on a pain scale. EENT: lips, oral mucosa, and tongue reddend. Neuro: Level of Consciousness is awake, alert, obeys commands, Oriented to person, place, time, situation. Cardiovascular: Patient's skin is warm and dry. Respiratory: Respiratory effort is even, unlabored, Respiratory pattern is regular, symmetrical. GI: No signs and/or symptoms were reported involving the gastrointestinal system. : No signs and/or symptoms were reported regarding the genitourinary system. Derm: Rash noted that is papular, diffuse. Musculoskeletal: No signs and/or symptoms reported regarding the musculoskeletal system. Historical: - Allergies: 09:59 PENICILLINS; hb - PMHx: 09:59 Atrial Fib; Hypertension; CVA; TIA; hb - PSHx: 09:59 Total abdominal hysterectomy; hb - Immunization history:: Adult Immunizations unknown. - Infectious Disease History:: Denies. - Social history:: Smoking status: Patient denies any tobacco usage or history of. Screenin:[facility] ED Fall Risk Assessment (Adult) History of falling in the last 3 months, hb including since admission No falls in past 3 months (0 pts) Confusion or Disorientation No (0 pts) Intoxicated or Sedated No (0 pts) Impaired Gait No (0 pts) Mobility Assist Device Used No (0 pt) Altered Elimination No (0 pt) Score/Fall Risk Level 0 - 2 = Low Risk Oriented to surroundings, Maintained a safe environment, Educated pt \T\ family on fall prevention, incl call for assistance when getting out of bed. Abuse screen: Denies threats or abuse. Denies injuries from another. Nutritional screening: No deficits noted. Tuberculosis screening: No symptoms or risk factors identified. Assessment: 10:01 General: See triage assessment . hb Vital Signs: 09:58 BP 179 / 79; Pulse 88; Resp 16; Temp 98.8(O); Pulse Ox 100% on R/A; Weight 129.73 kg; hb Height 5 ft. 4 in. ; Pain 3/10; 09:58 Body Mass Index 49.09 (129.73 kg, 162.56 cm) hb 09:58 Pain Scale: Adult hb ED Course: 09:38 Patient arrived in ED. ra3 09:38 Margo Fuentes FNP-C is [facility]. kb 09:38 Rojas Elizondo MD is Attending Physician. kb 09:57 Latanya Flores, RN is Primary Nurse. hb 09:58 Triage completed. hb 09:59 Arm band placed on. hb 10:01 Patient has correct armband on for positive identification. Bed in low position. Call hb light in reach. Side rails up X 1. Provided Education on: tests, result times. 10:01 No provider procedures requiring assistance completed. Patient did not have IV access hb during this emergency room visit. Administered Medications: No medications were administered Medication: 10:01 VIS not applicable for this client. hb Outcome: 11:20 Discharge ordered by . kb 11:46 Patient left the ED. hb Signatures: Margo Fuentes FNP-C FNP-Latanya Elias, RN RN Liseth Slater ra3 Corrections: (The following items were deleted from the chart) 09:58 09:38 Chief complaint: Diffuse rash and blisters on mouth x 3 days hb hb
--- NOTE | 2024-09-03 11:21 | EDPHYS ---
Physician Documentation [facility] Name: Michelle Hadley Age: 74 yrs Sex: Female : 1950 Arrival Date: 09/03/2024 Time: 09:28 Bed 11 Private MD: ED Physician Rojas Elizondo HPI: 09/03 09:40 This 74 yrs old Black Female presents to ER via Unassigned with complaints of rash. kb 09:40 Pt is a 74 year old female who presents for diffuse, mild rash that started 1 week ago. kb Denies fever, cough, congestion. states her mouth has been sore as well. Pt denies itching, but states she has been scratching. . Historical: - Allergies: 09:59 PENICILLINS; hb - PMHx: 09:59 Atrial Fib; Hypertension; CVA; TIA; hb - PSHx: 09:59 Total abdominal hysterectomy; hb - Immunization history:: Adult Immunizations unknown. - Infectious Disease History:: Denies. - Social history:: Smoking status: Patient denies any tobacco usage or history of. ROS: 09:40 Constitutional: As per HPI kb Exam: 09:40 Constitutional: This is a well developed, well nourished patient who is awake, alert, kb and in no acute distress. Head/Face: Normocephalic, atraumatic. ENT: Moist Mucous membranes Cardiovascular: Regular rate Respiratory: Respirations even and unlabored. No increased work of breathing. Talking in full sentences MS/ Extremity: Pulses equal, no cyanosis. Neurovascular intact. Full, normal range of motion. Neuro: Awake and alert, GCS 15, oriented to person, place, time, and situation. 09:40 ENT: Mouth: Oral mucosa: erythematous with white patches on tongue, Posterior pharynx: erythema, 09:40 Skin: rash a mild rash is noted, and is diffusely located, Vital Signs: 09:58 BP 179 / 79; Pulse 88; Resp 16; Temp 98.8(O); Pulse Ox 100% on R/A; Weight 129.73 kg; hb Height 5 ft. 4 in. ; Pain 3/10; 09:58 Body Mass Index 49.09 (129.73 kg, 162.56 cm) hb 09:58 Pain Scale: Adult hb MDM: 09:38 Medical Screening Exam initiated kb 09:43 Differential diagnosis: impetigo, allergic reaction, parasite infection. Data reviewed: kb vital signs, nurses notes. Historians other than the Patient: Spouse/Significant Other: . 11:18 Counseling: I had a detailed discussion with the patient and/or guardian regarding the kb historical points, exam findings, and any diagnostic results supporting the discharge/admit diagnosis, lab results, the need for outpatient follow up, a hand marker, to return to the emergency department if symptoms worsen or persist or if there are any questions or concerns that arise at home. 09/03 09:44 Order name: Strep kb 09/03 11:15 Order name: Throat Culture EDMS Administered Medications: No medications were administered Disposition Summary: 09/03/24 11:20 Discharge Ordered Notes: Location: Home kb Condition: Stable kb Diagnosis - Rash and other nonspecific skin eruption kb - Candidal stomatitis kb Followup: kb - With: Emergency Department - When: As needed - Reason: Worsening of condition Followup: kb - With: Private Physician - When: 2 - 3 days - Reason: Recheck today's complaints, Continuance of care, Re-evaluation by your physician Discharge Instructions: - Discharge Summary Sheet kb - Oral Thrush, Adult kb - Rash, Adult, [id number] kb Forms: - Medication Reconciliation Form kb - Antibiotic Education kb - Prescription Opioid Use kb - Patient Portal Instructions kb - Leadership Thank You Letter kb Prescriptions: - Nystatin 100,000 unit/mL Oral suspension - take 5 milliliters ORAL route every 6 hours swish and swallow; 120 milliliter; kb Refills: 0, Product Selection Permitted - Prednisone 20 mg Oral Tablet - take 1 tablet ORAL route once daily for 5 days; 5 tablet; Refills: 0, Product kb Selection Permitted Signatures: Dispatcher [employer] [facility] Margo Fuentes, PHARMACY SERVICES REPRESENTATIVE-C PHARMACY SERVICES REPRESENTATIVE-Latanya Elias RN RN hb Corrections: (The following items were deleted from the chart) 09:44 09:44 Group A Streptococcus Rapid Sc+BA.LAB.BRZ ordered. [facility] EDME 11:19 09:40 ENT: Posterior pharynx: erythema, kb kb
[2024-09-03 11:50] VITALS: BP 179/79; TEMP 98.8; O2SAT 100
== END 2024-09-03 11:46 | disposition home or self-care (01) ==
LOC: ER 09:28
DX: R21 Rash and other nonspecific skin eruption (principal); B37.0 Candidal stomatitis
CPT/HCPCS: 87070; 87081; 99281